=== PATIENT | female | born 1955 | race Caucasian/White ===

== ENCOUNTER → 2016-08-19 | Outpatient (CLI) | payer OTHER ==
--- NOTE | 2016-08-19 16:46 | REP ---
Clinical: Emphysema with nodules for follow up. Comparison: 12/15/2015. Findings: Advanced diffuse bilateral emphysematous changes are appreciated with a large scattered bullae predominate in the right upper lung zone. Areas of linear and nodular scarring as well as small nodular density in the right upper lobe (image 36), and left lower lobe (image 74, 93) remain stable. No new acute consolidation nodule or mass lesion otherwise identified. No pleural effusion/reaction or pneumothorax. No obvious adenopathy. Surrounding musculoskeletal structures are intact. Mediastinum demonstrates stable atherosclerotic changes without cardiomegaly or pericardial effusion. Limited evaluation of the upper abdomen demonstrates stable 4.4 cm left renal cyst. Impression: 1. Advanced emphysematous changes with scattered nodular densities unchanged from prior examination. No new acute consolidation, nodule or mass lesion. 2. Stable 4.4 cm left renal cyst. Signed by Cheng Islas MD 08/19/2016 04:38 P
== END ==
LOC: M RAD 16:15
PROVIDERS: ATTEND Internal Medicine Pulmonary Disease
DX: J43.1 Panlobular emphysema (principal); N28.1 Cyst of kidney, acquired

== ENCOUNTER → 2016-11-21 | Outpatient (REF) | payer OTHER ==
[2016-11-21 16:45] LABS: MEAN CORPUSCULAR HEMOGLOBIN 32.1 pg (27.0-33.0); MEAN CORPUSCULAR VOLUME 94.3 fl (80.0-96.0); RED CELL DISTRIBUTION WIDTH 13.1 % (11.5-14.5); WHITE BLOOD COUNT 7.2 K/mm3 (4.0-10.0)
[2016-11-21 17:35] LABS: ALBUMIN/GLOBULIN RATIO 1.18 (1.00-1.93); ALKALINE PHOSPHATASE 80 U/L (45-117); ALT/SGPT 28 U/L (12-78); ANION GAP 7 MEQ/L (8-16); AST/SGOT 19 U/L (15-37); BILIRUBIN,TOTAL 0.3 MG/DL (0.2-1.0); BLOOD UREA NITROGEN 10 MG/DL (7-18); CALCIUM LEVEL 8.9 MG/DL (8.8-10.2); CARBON DIOXIDE LEVEL 31 MEQ/L (21-32); CHLORIDE LEVEL 99 MEQ/L (98-107); CHOLESTEROL LEVEL 182 MG/DL (<200); CREATININE FOR GFR 0.74 MG/DL (0.55-1.02); GLOMERULAR FILTRATION RATE > 60.0 (>45); GLUCOSE, FASTING 82 MG/DL (80-110); SODIUM LEVEL 137 MEQ/L (136-145); TOTAL PROTEIN 7.4 GM/DL (6.4-8.2); TRIGLYCERIDES LEVEL 109 MG/DL (<150)
== END ==
LOC: M SFHCCLAY 11:20
PROVIDERS: ATTEND Nurse Practitioner Family
DX: I10 Essential (primary) hypertension (principal); Z13.6 Encounter for screening for cardiovascular disorders; Z13.21 Encounter for screening for nutritional disorder

== ENCOUNTER → 2017-01-23 | Outpatient (CLI) | payer OTHER ==
--- NOTE | 2017-01-23 13:21 | REP ---
Left wrist series: Four views. History: Left wrist pain. Findings: There is mild diffuse osteopenia. Wrist bones, joints, and soft tissues are otherwise unremarkable. Impression: No acute bony abnormality. Mild diffuse osteopenia.
== END ==
LOC: M CLY 11:36
PROVIDERS: ATTEND Nurse Practitioner Family
DX: M85.831 Other specified disorders of bone density and structure, right forearm (principal)

== ENCOUNTER 2017-07-08 13:17 | Inpatient (IN) | payer SELFPAY, OTHER ==
[2017-07-08 14:05] LABS: BASO % 0.2 % (0.0-1.0); EOS # 0.1 10^3/uL (0.0-0.50); EOS % 0.8 % (0.0-3.0); HEMATOCRIT 40.5 % (36.0-47.0); HEMOGLOBIN 14.5 g/dl (12.0-16.0); IMMATURE GRANULOCYTE % 0.2 % (0-0); LYMPH # 0.9 10^3/uL (1.5-4.5); LYMPH % 8.8 % (24.0-44.0); MEAN CORPUSCULAR HEMOGLOBIN 30.9 pg (27.0-33.0); MEAN CORPUSCULAR HGB CONC 35.8 g/dl (32.0-36.5); MEAN CORPUSCULAR VOLUME 86.4 fl (80.0-96.0); MONO % 9.9 % (0.0-5.0); NEUTROPHILS # 8.4 10^3/uL (1.8-7.7); NEUTROPHILS % 80.1 % (36.0-66.0); PLATELET COUNT, AUTOMATED 397 10^3/uL (150-450); RED BLOOD COUNT 4.69 10^6/uL (4.00-5.40); RED CELL DISTRIBUTION WIDTH 12.3 % (11.5-14.5); WHITE BLOOD COUNT 10.4 10^3/uL (4.0-10.0)
[2017-07-08 14:28] LABS: ALBUMIN 3.6 GM/DL (3.2-5.2); ALKALINE PHOSPHATASE 74 U/L (45-117); ALT/SGPT 25 U/L (12-78); ANION GAP 9 MEQ/L (8-16); AST/SGOT 21 U/L (7-37); BILIRUBIN,DIRECT 0.2 MG/DL (0.0-0.2); BILIRUBIN,TOTAL 0.7 MG/DL (0.2-1.0); BLOOD UREA NITROGEN 18 MG/DL (7-18); CALCIUM LEVEL 8.9 MG/DL (8.8-10.2); CARBON DIOXIDE LEVEL 29 MEQ/L (21-32); CHLORIDE LEVEL 96 MEQ/L (98-107); CPK CREATINE PHOSPHOKINASE 86 U/L (26-192); CREATININE FOR GFR 0.85 MG/DL (0.55-1.30); GLOMERULAR FILTRATION RATE > 60.0 (>45); GLUCOSE, FASTING 102 MG/DL (70-100); MB/CK RELATIVE INDEX 1.16 (< OR =4); NT-PRO BNP 111 PG/ML (<125); POTASSIUM SERUM 2.9 MEQ/L (3.5-5.1); SODIUM LEVEL 134 MEQ/L (136-145); TOTAL PROTEIN 7.6 GM/DL (6.4-8.2); TROPONIN I < 0.02 NG/ML (< 0.10)
[2017-07-08 14:34] LABS: LACTIC ACID SEPSIS PROTOCOL 1.3 MMOL/L (0.4-2.0)
[2017-07-08 14:36] LABS: INFLUENZA A AMPLIFICATION NEGATIVE (NEGATIVE); INFLUENZA B AMPLIFICATION NEGATIVE (NEGATIVE)
[2017-07-08] MEDS: methylPREDNISolone INJ 125 MG/2 ML VIAL (J2930) IV (14:55)
[2017-07-08] MEDS: POTASSIUM CHLORIDE 10 MEQ SR TABLET PO (14:55)
[2017-07-08] MEDS: IPRATROPIUM 0.5MG/ALBUTEROL 2.5MG INH SOL UD 3ML (DUONEB)(J7620) NEB ×2 (14:55→20:00)
[2017-07-08] MEDS ORDERED: ISOVUE-370 76% 100ML VIAL (Q9967) As Ordered (15:46)
[2017-07-08] MEDS: KETOROLAC 30 MG/ML VIAL (J1885) IV (16:12)
[2017-07-08 16:55] LABS: APPEARANCE, URINE HAZY (CLEAR); BACTERIA, URINE AUTO NEGATIVE (NEGATIVE); BILIRUBIN, URINE AUTO NEGATIVE (NEGATIVE); BLOOD, URINE BLOOD NEGATIVE (NEGATIVE); COLOR, URINE YELLOW (YELLOW); GLUCOSE, URINE (UA) AUTO NEGATIVE (NEGATIVE); KETONE, URINE AUTO NEGATIVE (NEGATIVE); LEUKOCYTE ESTERASE, URINE AUTO 2+ (NEGATIVE); NITRITE, URINE AUTO NEGATIVE (NEGATIVE); PROTEIN, URINE AUTO NEGATIVE (NEGATIVE); RBC, URINE AUTO 1 /HPF (0-3); SPECIFIC GRAVITY URINE AUTO 1.058 (1.002-1.035); SQUAMOUS EPITHELIAL CELL UR AU 9 /HPF (0-6); UROBILINOGEN, URINE AUTO 0.2 mg/dL (0.0-2.0); WBC, URINE AUTO 5 /HPF (0-3)
[2017-07-08] MEDS ORDERED: ONDANSETRON 4MG/2ML VIAL (J2405) IV (17:00)
[2017-07-08] MEDS ORDERED: IPRATROPIUM 0.5MG/ALBUTEROL 2.5MG INH SOL UD 3ML (DUONEB)(J7620) NEB (17:30)
[2017-07-08] MEDS: ALBUTEROL SULFATE 2.5 MG/0.5 ML INH NEB SOLN NEB (17:31)
[2017-07-08] MEDS: DOXYCYCLINE HYCLATE 100 MG TAB PO (21:45)
[2017-07-08] MEDS: FAMOTIDINE 20 MG TAB PO (21:45)
[2017-07-08] MEDS: HEPARIN SOD (PORCINE) 5000 UNITS/ML VIAL SC (21:45)
[2017-07-08] MEDS: ACETAMINOPHEN TAB 650MG DOSE (2X325MG) PO (21:46)
[2017-07-08] MEDS: methylPREDNISolone INJ 40 MG/1 ML VIAL (J2920) IV (23:08)
[2017-07-09] MEDS: IPRATROPIUM 0.5MG/ALBUTEROL 2.5MG INH SOL UD 3ML (DUONEB)(J7620) NEB ×4 (01:18→20:31)
[2017-07-09] MEDS: POTASSIUM CHLORIDE 10 MEQ SR TABLET PO ×2 (01:42→06:20)
[2017-07-09] MEDS: methylPREDNISolone INJ 40 MG/1 ML VIAL (J2920) IV ×3 (06:21→21:57)
[2017-07-09] MEDS: HEPARIN SOD (PORCINE) 5000 UNITS/ML VIAL SC ×3 (06:21→21:57)
[2017-07-09] MEDS: ACETAMINOPHEN TAB 650MG DOSE (2X325MG) PO ×2 (06:34→11:50)
[2017-07-09 06:57] LABS: HEMATOCRIT 37.5 % (36.0-47.0); MEAN CORPUSCULAR HEMOGLOBIN 30.7 pg (27.0-33.0); MEAN CORPUSCULAR HGB CONC 34.7 g/dl (32.0-36.5); MEAN CORPUSCULAR VOLUME 88.4 fl (80.0-96.0); PLATELET COUNT, AUTOMATED 401 10^3/uL (150-450); RED BLOOD COUNT 4.24 10^6/uL (4.00-5.40); RED CELL DISTRIBUTION WIDTH 12.6 % (11.5-14.5); WHITE BLOOD COUNT 5.7 10^3/uL (4.0-10.0)
[2017-07-09 07:14] LABS: ANION GAP 9 MEQ/L (8-16); BLOOD UREA NITROGEN 25 MG/DL (7-18); CALCIUM LEVEL 9.2 MG/DL (8.8-10.2); CARBON DIOXIDE LEVEL 27 MEQ/L (21-32); CHLORIDE LEVEL 98 MEQ/L (98-107); CREATININE FOR GFR 0.91 MG/DL (0.55-1.30); GLOMERULAR FILTRATION RATE > 60.0 (>45); GLUCOSE, FASTING 116 MG/DL (70-100); MAGNESIUM LEVEL 2.3 MG/DL (1.8-2.4); POTASSIUM SERUM 4.6 MEQ/L (3.5-5.1); SODIUM LEVEL 134 MEQ/L (136-145)
[2017-07-09] MEDS ORDERED: CHLORTHALIDONE 12.5MG PER 1/2 TABLET PO (09:00)
[2017-07-09] MEDS: FAMOTIDINE 20 MG TAB PO ×2 (10:22→20:07)
[2017-07-09] MEDS: DOXYCYCLINE HYCLATE 100 MG TAB PO ×2 (10:22→20:07)
[2017-07-09] MEDS: ACETAMINOPHEN 500 MG TAB PO (16:35)
[2017-07-09] MEDS: BENZONATATE 100 MG CAP PO (20:07)
[2017-07-10] MEDS: ACETAMINOPHEN 500 MG TAB PO (00:15)
[2017-07-10] MEDS: IPRATROPIUM 0.5MG/ALBUTEROL 2.5MG INH SOL UD 3ML (DUONEB)(J7620) NEB ×4 (02:00→20:37)
[2017-07-10] MEDS: HEPARIN SOD (PORCINE) 5000 UNITS/ML VIAL SC ×3 (06:10→21:55)
[2017-07-10] MEDS: methylPREDNISolone INJ 40 MG/1 ML VIAL (J2920) IV (06:10)
[2017-07-10 06:51] LABS: HEMATOCRIT 36.9 % (36.0-47.0); HEMOGLOBIN 12.6 g/dl (12.0-16.0); MEAN CORPUSCULAR HEMOGLOBIN 31.1 pg (27.0-33.0); MEAN CORPUSCULAR HGB CONC 34.1 g/dl (32.0-36.5); MEAN CORPUSCULAR VOLUME 91.1 fl (80.0-96.0); PLATELET COUNT, AUTOMATED 450 10^3/uL (150-450); RED BLOOD COUNT 4.05 10^6/uL (4.00-5.40); WHITE BLOOD COUNT 12.3 10^3/uL (4.0-10.0)
[2017-07-10 07:18] LABS: ANION GAP 8 MEQ/L (8-16); BLOOD UREA NITROGEN 20 MG/DL (7-18); CALCIUM LEVEL 8.9 MG/DL (8.8-10.2); CARBON DIOXIDE LEVEL 26 MEQ/L (21-32); CHLORIDE LEVEL 102 MEQ/L (98-107); CREATININE FOR GFR 0.78 MG/DL (0.55-1.30); GLOMERULAR FILTRATION RATE > 60.0 (>45); GLUCOSE, FASTING 109 MG/DL (70-100); MAGNESIUM LEVEL 2.1 MG/DL (1.8-2.4); POTASSIUM SERUM 4.3 MEQ/L (3.5-5.1); SODIUM LEVEL 136 MEQ/L (136-145)
[2017-07-10] MEDS: FAMOTIDINE 20 MG TAB PO ×2 (08:31→21:54)
[2017-07-10] MEDS: DOXYCYCLINE HYCLATE 100 MG TAB PO ×2 (08:31→21:54)
[2017-07-10] MEDS: IBUPROFEN 400 MG TAB PO ×2 (08:31→15:05)
[2017-07-10] MEDS: CYCLOBENZAPRINE 5MG TABLET PO ×2 (08:59→15:04)
[2017-07-10] MEDS: KETOROLAC 30 MG/ML VIAL (J1885) IV (21:54)
[2017-07-11] MEDS: IPRATROPIUM 0.5MG/ALBUTEROL 2.5MG INH SOL UD 3ML (DUONEB)(J7620) NEB ×5 (00:52→20:31)
[2017-07-11] MEDS: traMADol 50 MG TAB PO ×3 (04:27→19:50)
[2017-07-11] MEDS: HEPARIN SOD (PORCINE) 5000 UNITS/ML VIAL SC ×3 (05:50→22:55)
[2017-07-11] MEDS: predniSONE 20 MG TAB PO (09:24)
[2017-07-11] MEDS: FAMOTIDINE 20 MG TAB PO ×2 (09:24→19:52)
[2017-07-11] MEDS: DOXYCYCLINE HYCLATE 100 MG TAB PO ×2 (09:24→19:52)
[2017-07-11] MEDS: FAMCICLOVIR 500 MG TAB PO ×3 (09:24→19:52)
[2017-07-11] MEDS: CYCLOBENZAPRINE 5MG TABLET PO (19:50)
[2017-07-11] MEDS: ACETAMINOPHEN 500 MG TAB PO (19:51)
[2017-07-12] MEDS: IPRATROPIUM 0.5MG/ALBUTEROL 2.5MG INH SOL UD 3ML (DUONEB)(J7620) NEB ×4 (01:39→20:16)
[2017-07-12] MEDS: HEPARIN SOD (PORCINE) 5000 UNITS/ML VIAL SC ×3 (06:12→20:37)
[2017-07-12 06:37] LABS: EOS # 0.1 10^3/uL (0.0-0.50); HEMOGLOBIN 11.8 g/dl (12.0-16.0); IMMATURE GRANULOCYTE % 0.8 % (0-3.0); LYMPH # 2.2 10^3/uL (1.5-4.5); LYMPH % 25.9 % (24.0-44.0); MEAN CORPUSCULAR HEMOGLOBIN 30.9 pg (27.0-33.0); MEAN CORPUSCULAR HGB CONC 33.7 g/dl (32.0-36.5); MEAN CORPUSCULAR VOLUME 91.6 fl (80.0-96.0); MONO # 1.1 10^3/uL (0.0-0.8); MONO % 12.9 % (0.0-5.0); NEUTROPHILS # 4.9 10^3/uL (1.8-7.7); NEUTROPHILS % 59.4 % (36.0-66.0); PLATELET COUNT, AUTOMATED 439 10^3/uL (150-450); RED BLOOD COUNT 3.82 10^6/uL (4.00-5.40); RED CELL DISTRIBUTION WIDTH 13.4 % (11.5-14.5); WHITE BLOOD COUNT 8.3 10^3/uL (4.0-10.0)
[2017-07-12 06:56] LABS: ALBUMIN 2.9 GM/DL (3.2-5.2); ALBUMIN/GLOBULIN RATIO 0.97 (1.00-1.93); ALKALINE PHOSPHATASE 54 U/L (45-117); ALT/SGPT 27 U/L (12-78); ANION GAP 6 MEQ/L (8-16); AST/SGOT 20 U/L (7-37); BILIRUBIN,TOTAL 0.4 MG/DL (0.2-1.0); BLOOD UREA NITROGEN 18 MG/DL (7-18); CALCIUM LEVEL 8.5 MG/DL (8.8-10.2); CARBON DIOXIDE LEVEL 31 MEQ/L (21-32); CHLORIDE LEVEL 102 MEQ/L (98-107); CREATININE FOR GFR 0.76 MG/DL (0.55-1.30); GLOMERULAR FILTRATION RATE > 60.0 (>45); GLUCOSE, FASTING 79 MG/DL (70-100); POTASSIUM SERUM 4.5 MEQ/L (3.5-5.1); SODIUM LEVEL 139 MEQ/L (136-145); TOTAL PROTEIN 5.9 GM/DL (6.4-8.2)
[2017-07-12] MEDS: FAMCICLOVIR 500 MG TAB PO ×3 (08:10→20:36)
[2017-07-12] MEDS: predniSONE 20 MG TAB PO (08:10)
[2017-07-12] MEDS: FAMOTIDINE 20 MG TAB PO ×2 (08:10→20:36)
[2017-07-12] MEDS: DOXYCYCLINE HYCLATE 100 MG TAB PO ×2 (08:10→20:36)
[2017-07-12] MEDS: traMADol 50 MG TAB PO ×2 (08:10→17:11)
[2017-07-12] MEDS: IBUPROFEN 400 MG TAB PO ×2 (11:35→20:36)
[2017-07-12] MEDS: CYCLOBENZAPRINE 5MG TABLET PO ×2 (13:20→20:36)
[2017-07-12] MEDS: DICLOFENAC EPOLAMINE 1.3 % PATCH TOP (17:11)
[2017-07-13] MEDS: IPRATROPIUM 0.5MG/ALBUTEROL 2.5MG INH SOL UD 3ML (DUONEB)(J7620) NEB ×4 (00:56→20:58)
[2017-07-13] MEDS: DICLOFENAC EPOLAMINE 1.3 % PATCH TOP ×2 (05:32→18:18)
[2017-07-13] MEDS: HEPARIN SOD (PORCINE) 5000 UNITS/ML VIAL SC ×3 (05:33→20:40)
[2017-07-13 06:27] LABS: BASO % 0.1 % (0.0-1.0); EOS # 0.1 10^3/uL (0.0-0.50); HEMOGLOBIN 12.1 g/dl (12.0-16.0); IMMATURE GRANULOCYTE % 1.2 % (0-3.0); LYMPH # 2.8 10^3/uL (1.5-4.5); LYMPH % 26.5 % (24.0-44.0); MEAN CORPUSCULAR HEMOGLOBIN 30.9 pg (27.0-33.0); MEAN CORPUSCULAR HGB CONC 33.6 g/dl (32.0-36.5); MEAN CORPUSCULAR VOLUME 91.8 fl (80.0-96.0); MONO # 1.2 10^3/uL (0.0-0.8); MONO % 11.6 % (0.0-5.0); NEUTROPHILS # 6.2 10^3/uL (1.8-7.7); NEUTROPHILS % 59.6 % (36.0-66.0); PLATELET COUNT, AUTOMATED 510 10^3/uL (150-450); RED BLOOD COUNT 3.92 10^6/uL (4.00-5.40); RED CELL DISTRIBUTION WIDTH 13.5 % (11.5-14.5); WHITE BLOOD COUNT 10.4 10^3/uL (4.0-10.0)
[2017-07-13 06:58] LABS: ALBUMIN/GLOBULIN RATIO 0.91 (1.00-1.93); ALKALINE PHOSPHATASE 59 U/L (45-117); ALT/SGPT 30 U/L (12-78); ANION GAP 6 MEQ/L (8-16); AST/SGOT 24 U/L (7-37); BILIRUBIN,TOTAL 0.4 MG/DL (0.2-1.0); BLOOD UREA NITROGEN 15 MG/DL (7-18); CALCIUM LEVEL 8.5 MG/DL (8.8-10.2); CARBON DIOXIDE LEVEL 30 MEQ/L (21-32); CHLORIDE LEVEL 103 MEQ/L (98-107); GLOMERULAR FILTRATION RATE > 60.0 (>45); GLUCOSE, FASTING 72 MG/DL (70-100); POTASSIUM SERUM 4.4 MEQ/L (3.5-5.1); SODIUM LEVEL 139 MEQ/L (136-145); TOTAL PROTEIN 6.3 GM/DL (6.4-8.2)
[2017-07-13] MEDS: predniSONE 20 MG TAB PO (09:08)
[2017-07-13] MEDS: DOXYCYCLINE HYCLATE 100 MG TAB PO ×2 (09:08→20:40)
[2017-07-13] MEDS: traMADol 50 MG TAB PO ×2 (09:08→15:45)
[2017-07-13] MEDS: FAMOTIDINE 20 MG TAB PO ×2 (09:08→20:40)
[2017-07-13] MEDS: BENZONATATE 100 MG CAP PO ×2 (09:36→20:41)
[2017-07-13] MEDS: IBUPROFEN 400 MG TAB PO ×2 (14:43→20:40)
[2017-07-14] MEDS: IPRATROPIUM 0.5MG/ALBUTEROL 2.5MG INH SOL UD 3ML (DUONEB)(J7620) NEB ×2 (01:18→08:59)
[2017-07-14] MEDS: TUSSICAPS ER 10/8MG CAPSULE PO ×2 (01:36→11:36)
[2017-07-14 06:22] LABS: BASO % 0.1 % (0.0-1.0); EOS # 0.2 10^3/uL (0.0-0.50); EOS % 1.2 % (0.0-3.0); HEMATOCRIT 32.8 % (36.0-47.0); HEMOGLOBIN 11.1 g/dl (12.0-16.0); IMMATURE GRANULOCYTE % 1.3 % (0-3.0); LYMPH # 2.8 10^3/uL (1.5-4.5); LYMPH % 23.6 % (24.0-44.0); MEAN CORPUSCULAR HEMOGLOBIN 31.6 pg (27.0-33.0); MEAN CORPUSCULAR HGB CONC 33.8 g/dl (32.0-36.5); MEAN CORPUSCULAR VOLUME 93.4 fl (80.0-96.0); MONO # 1.2 10^3/uL (0.0-0.8); MONO % 10.2 % (0.0-5.0); NEUTROPHILS # 7.6 10^3/uL (1.8-7.7); NEUTROPHILS % 63.6 % (36.0-66.0); PLATELET COUNT, AUTOMATED 456 10^3/uL (150-450); RED BLOOD COUNT 3.51 10^6/uL (4.00-5.40); RED CELL DISTRIBUTION WIDTH 13.7 % (11.5-14.5)
[2017-07-14] MEDS: DICLOFENAC EPOLAMINE 1.3 % PATCH TOP (06:37)
[2017-07-14] MEDS: IBUPROFEN 400 MG TAB PO (06:37)
[2017-07-14] MEDS: BENZONATATE 100 MG CAP PO (06:38)
[2017-07-14] MEDS: HEPARIN SOD (PORCINE) 5000 UNITS/ML VIAL SC (06:38)
[2017-07-14 06:41] LABS: ALBUMIN 2.8 GM/DL (3.2-5.2); ALBUMIN/GLOBULIN RATIO 0.97 (1.00-1.93); ALKALINE PHOSPHATASE 59 U/L (45-117); ALT/SGPT 48 U/L (12-78); ANION GAP 7 MEQ/L (8-16); AST/SGOT 33 U/L (7-37); BILIRUBIN,TOTAL 0.3 MG/DL (0.2-1.0); BLOOD UREA NITROGEN 17 MG/DL (7-18); CALCIUM LEVEL 8.4 MG/DL (8.8-10.2); CARBON DIOXIDE LEVEL 29 MEQ/L (21-32); CHLORIDE LEVEL 103 MEQ/L (98-107); CREATININE FOR GFR 0.73 MG/DL (0.55-1.30); GLOMERULAR FILTRATION RATE > 60.0 (>45); GLUCOSE, FASTING 70 MG/DL (70-100); POTASSIUM SERUM 4.4 MEQ/L (3.5-5.1); SODIUM LEVEL 139 MEQ/L (136-145); TOTAL PROTEIN 5.7 GM/DL (6.4-8.2)
[2017-07-14] MEDS: FAMOTIDINE 20 MG TAB PO (09:02)
[2017-07-14] MEDS: predniSONE 10 MG TAB PO (09:02)
[2017-07-14] MEDS: DOXYCYCLINE HYCLATE 100 MG TAB PO (09:02)
== END 2017-07-14 12:25 | disposition home or self-care (01) | DRG 140 ==
LOC: M MS5PR 07-11 12:27 → M ED 13:17 → M ED INP 17:00 → M MS5PR 20:04
DX: J44.1 Chronic obstructive pulmonary disease with (acute) exacerbation (principal); J96.11 Chronic respiratory failure with hypoxia; I10 Essential (primary) hypertension; E87.6 Hypokalemia; L23.89 Allergic contact dermatitis due to other agents; Z79.899 Other long term (current) drug therapy; Z88.2 Allergy status to sulfonamides; Z88.0 Allergy status to penicillin; Z88.8 Allergy status to other drugs, medicaments and biological substances; Z87.891 Personal history of nicotine dependence

== ENCOUNTER → 2017-08-11 | Outpatient (CLI) | payer OTHER | LOC: M RAD 15:18 | DX: J43.1 Panlobular emphysema (principal); S22.080D Wedge compression fracture of T11-T12 vertebra, subsequent encounter for fracture with routine healing; X58.XXXD Exposure to other specified factors, subsequent encounter | CPT/HCPCS: 71250 ==

== ENCOUNTER → 2017-11-21 | Outpatient (REF) | payer OTHER ==
[2017-11-21 18:22] LABS: ALBUMIN 3.8 GM/DL (3.2-5.2); ALBUMIN/GLOBULIN RATIO 1.09 (1.00-1.93); ALKALINE PHOSPHATASE 83 U/L (45-117); ALT/SGPT 28 U/L (12-78); ANION GAP 7 MEQ/L (8-16); AST/SGOT 20 U/L (7-37); BILIRUBIN,TOTAL 0.2 MG/DL (0.2-1.0); BLOOD UREA NITROGEN 12 MG/DL (7-18); CALCIUM LEVEL 8.4 MG/DL (8.8-10.2); CARBON DIOXIDE LEVEL 31 MEQ/L (21-32); CHLORIDE LEVEL 105 MEQ/L (98-107); CHOLESTEROL LEVEL 182 MG/DL (<200); CHOLESTEROL RISK RATIO 2.426 (<5); CREATININE FOR GFR 0.78 MG/DL (0.55-1.30); FREE T4 1.11 NG/DL (0.76-1.46); GLOMERULAR FILTRATION RATE > 60.0 (>45); GLUCOSE, FASTING 94 MG/DL (70-100); HDL CHOLESTEROL 75 MG/DL (>40); NON-HDL-C 107 MG/DL; POTASSIUM SERUM 4.7 MEQ/L (3.5-5.1); SODIUM LEVEL 143 MEQ/L (136-145); THYROID STIMULATING HORMONE 0.791 uIU/ML (0.358-3.740); TOTAL PROTEIN 7.3 GM/DL (6.4-8.2); TRIGLYCERIDES LEVEL 160 MG/DL (<150)
[2017-11-21 19:06] LABS: TOTAL 25(OH) VITAMIN D 22.1 NG/ML (30.0-100.0)
[2017-11-21 19:17] LABS: HEMATOCRIT 41.1 % (36.0-47.0); HEMOGLOBIN 13.2 g/dl (12.0-15.5); MEAN CORPUSCULAR HEMOGLOBIN 30.8 pg (27.0-33.0); MEAN CORPUSCULAR HGB CONC 32.1 g/dl (32.0-36.5); MEAN CORPUSCULAR VOLUME 95.8 fl (80.0-96.0); PLATELET COUNT, AUTOMATED 341 10^3/uL (150-450); RED BLOOD COUNT 4.29 10^6/uL (4.00-5.40); WHITE BLOOD COUNT 8.4 10^3/uL (4.0-10.0)
== END ==
LOC: M SFHCCLAY 11:17
DX: Z13.21 Encounter for screening for nutritional disorder (principal); I10 Essential (primary) hypertension; K21.9 Gastro-esophageal reflux disease without esophagitis
CPT/HCPCS: 84443

== ENCOUNTER → 2018-01-07 | Outpatient (REF) | payer OTHER | LOC: M SFHCLERA 09:13 | DX: D18.01 Hemangioma of skin and subcutaneous tissue (principal) | CPT/HCPCS: 88305 ==

== ENCOUNTER → 2018-06-09 | Outpatient (REF) | payer MEDICARE, OTHER ==
[~2018-06-09] MED LIST: ARCA75CA INH; ARNU1INH3 INH; BENZ-18 PO; CHLO125TA; CHLO25TA PO; DOXY100C37 PO; INCR1INH INH; PRED10TA2 PO; TRAM50TA2 PO; TUSS1CAP5 PO; TYLE500T78 PO; VENTAER INH
[2018-06-09 18:22] LABS: BASO % 0.4 % (0.0-1.0); EOS # 0.2 10^3/uL (0.0-0.50); EOS % 2.5 % (0.0-3.0); HEMATOCRIT 40.9 % (36.0-47.0); HEMOGLOBIN 13.4 g/dl (12.0-15.5); LYMPH % 25.8 % (24.0-44.0); MEAN CORPUSCULAR HEMOGLOBIN 30.9 pg (27.0-33.0); MEAN CORPUSCULAR HGB CONC 32.8 g/dl (32.0-36.5); MEAN CORPUSCULAR VOLUME 94.2 fl (80.0-96.0); MONO # 0.6 10^3/uL (0.0-0.8); MONO % 7.7 % (0.0-5.0); NEUTROPHILS # 4.9 10^3/uL (1.8-7.7); NEUTROPHILS % 63.3 % (36.0-66.0); PLATELET COUNT, AUTOMATED 381 10^3/uL (150-450); RED BLOOD COUNT 4.34 10^6/uL (4.00-5.40); WHITE BLOOD COUNT 7.8 10^3/uL (4.0-10.0)
[2018-06-09 18:48] LABS: ALBUMIN 3.9 GM/DL (3.2-5.2); ALT/SGPT 22 U/L (12-78); BILIRUBIN,TOTAL 0.2 MG/DL (0.2-1.0); BLOOD UREA NITROGEN 14 MG/DL (7-18); CALCIUM LEVEL 8.8 MG/DL (8.8-10.2); CARBON DIOXIDE LEVEL 29 MEQ/L (21-32); CHLORIDE LEVEL 105 MEQ/L (98-107); CHOLESTEROL LEVEL 217 MG/DL (<200); CHOLESTEROL RISK RATIO 2.893 (<5); CREATININE FOR GFR 0.78 MG/DL (0.55-1.30); FREE T4 1.07 NG/DL (0.76-1.46); GLOMERULAR FILTRATION RATE > 60.0 (>45); GLUCOSE, FASTING 100 MG/DL (70-100); HDL CHOLESTEROL 75 MG/DL (>40); LDL CHOLESTEROL 108 MG/DL (<100); NON-HDL-C 142 MG/DL; POTASSIUM SERUM 4.8 MEQ/L (3.5-5.1); SODIUM LEVEL 142 MEQ/L (136-145); TOTAL PROTEIN 7.5 GM/DL (6.4-8.2); TRIGLYCERIDES LEVEL 168 MG/DL (<150)
== END ==
LOC: M SFHCCLAY 13:46
PROVIDERS: ATTEND Nurse Practitioner Family
DX: I10 Essential (primary) hypertension (principal); K21.9 Gastro-esophageal reflux disease without esophagitis; J44.9 Chronic obstructive pulmonary disease, unspecified
CPT/HCPCS: 80053; 80061; 84439; 84443; 85025; G0463

== ENCOUNTER → 2018-08-10 | Outpatient (CLI) | payer OTHER ==
--- NOTE | 2018-08-11 08:17 | REP ---
Clinical: History jimenez lobular emphysema. Technique: Axial noncontrast images from the thoracic inlet to the upper abdomen with coronal and sagittal re-formations. Comparison: 08/11/2017. Findings: A new area of irregular mass-like consolidation is identified in the right upper lung zone/suprahilar region at the base of the large apical bulla which represents a new finding as compared to 2018. Associated new mediastinal adenopathy is identified and findings are compatible with malignancy/neoplasm unless proven otherwise. Advanced COPD/emphysematous changes noted throughout the bilateral lung kirby. Nodular noncalcified left lower lobe lesions remains stable. Atherosclerotic changes to the thoracic aorta and coronary arteries noted without aortic aneurysm or cardiomegaly. Small pericardial effusion appears chronic and unchanged. Impression: New irregular area of mass / consolidation in the right upper lung zone/suprahilar region at the base of the large apical bulla along with adenopathy is consistent with malignancy unless proven otherwise. Electronically Signed by Cheng Islas MD 08/11/2018 08:08 A
== END ==
LOC: M RAD 17:40
PROVIDERS: ATTEND Internal Medicine Pulmonary Disease
DX: J43.1 Panlobular emphysema (principal); R91.8 Other nonspecific abnormal finding of lung field; I70.0 Atherosclerosis of aorta

== ENCOUNTER → 2018-08-14 | Outpatient (REF) | payer OTHER | LOC: M LAB REF 17:10 | PROVIDERS: ATTEND Internal Medicine Pulmonary Disease | DX: J43.1 Panlobular emphysema (principal) ==

== ENCOUNTER → 2018-09-14 | Outpatient (CLI) | payer OTHER ==
--- NOTE | 2018-09-14 16:23 | REP ---
CT CHEST WITHOUT CONTRAST: HISTORY: Abnormal lung field finding. Comparison is made with multiple prior chest CTs, the most recent of which is from August 10, 2018 and the most remote of which is from August 2015. CT FINDINGS: There are severe emphysematous changes with a bullous emphysema occupying much of both upper lobes. There is a very large bullous in the right upper lobe as on multiple prior studies. This dilated air cyst measures up to 12-13 cm in greatest diameter. Along the inferior aspect of this there is a spiculated V-shaped infiltrating area of soft tissue density which has been gradually progressing. There are cavitary changes within this soft tissue density. On axial images this infiltrative mass like spiculated opacity measures up to 5.4 x 4.3 cm. There is mass effect probably occlusion of subsegmental bronchial airways in the right infrahilar region. There is a linear medially distributed calcification along the edge of the bullous along the mediastinal contour and posterior pleural contour at the apex. There is mild mediastinal lymphadenopathy again noted unchanged from the comparison study of August 10, 2018. Largest precarinal lymph node measures 14 x 22 mm in transverse dimension. There are several pretracheal lymph nodes which are smaller. There is a stable subcentimeter nodule in the left lower lobe on page 75 of 117 in series 201 of today's study. There is another stable nodule in the left lateral pleural angle 8 mm in diameter. This is visible on page 94 of the same series. Extensive emphysematous changes are noted in the lower lobes as well. There is no pleural or pericardial effusion. No adrenal lesion is seen. Post cholecystectomy clips are noted right upper quadrant. There is a cyst in the left kidney which measures 4.5 cm. IMPRESSION: Suspicious right upper lobe perihilar infiltrative spiculated lesion with cavitary changes along the inferior margin of a very large right apical bullous. Advanced COPD and emphysematous changes. Mediastinal adenopathy. Electronically Signed by Anil Costello MD 09/14/2018 05:00 P
== END ==
LOC: M RAD 15:01
PROVIDERS: ATTEND Internal Medicine Pulmonary Disease
DX: R91.8 Other nonspecific abnormal finding of lung field (principal)

== ENCOUNTER 2018-10-14 07:26 | Day surgery (SDC) | payer OTHER ==
[~2018-10-14] VITALS: Ht 157.5 cm; Wt 52.6 kg
[~2018-10-14 07:26] MED LIST changes: +ACET-897 PO; +ANOR1AER INH; +RANI150T14 PO
[2018-10-14] MEDS ORDERED: LR 1,000 ML IV SCH ×2 (07:45→10:30)
[2018-10-14] MEDS ORDERED: LIDOCAINE 1% MDV 20ML VIAL SQ PRN (07:45)
[2018-10-14] MEDS ORDERED: SUGAMMADEX SODIUM 500 MG/5 ML VIAL (BRIDION) As Ordered ONE (07:58)
[2018-10-14] MEDS ORDERED: ROCURONIUM BROMIDE 50 MG/5 ML VIAL As Ordered ONE (07:58)
[2018-10-14] MEDS ORDERED: LIDOCAINE 2% INJ 100 MG/5 ML SDV (FOR ANES.) As Ordered ONE (07:58)
[2018-10-14] MEDS ORDERED: PROPOFOL 200 MG/20 ML VIAL As Ordered ONE ×2 (07:58→08:30)
[2018-10-14] MEDS ORDERED: ONDANSETRON 4MG/2ML VIAL (J2405) As Ordered ONE (08:00)
[2018-10-14] MEDS ORDERED: MIDAZOLAM INJ 2 MG/2 ML VIAL (J2250) As Ordered ONE (08:01)
[2018-10-14] MEDS ORDERED: fentaNYL 100 MCG/2 ML INJECTION (J3010) As Ordered ONE (08:01)
[2018-10-14] MEDS ORDERED: THROMBIN SOLN 20,000 UNITS KIT As Ordered ONE (08:37)
[2018-10-14] MEDS ORDERED: LIDOCAINE 1% SDV INJ 30 ML VIAL As Ordered ONE (08:38)
[2018-10-14] MEDS ORDERED: LIDOCAINE VISCOUS 2% SOLN 15ML UDC As Ordered ONE (08:38)
[2018-10-14] MEDS ORDERED: EPINEPHrine 1MG/10ML SYRINGE 1.5IN As Ordered ONE (08:38)
[2018-10-14] MEDS ORDERED: CETACAINE SPRAY 5GM As Ordered ONE (08:41)
[2018-10-14] MEDS ORDERED: PHENYLephrine HCL 500 MCG/5 ML (100MCG/ML) SYRINGE (J2370) As Ordered ONE (09:26)
--- NOTE | 2018-10-14 10:16 | REP ---
Portable chest, 09:58 a.m., single AP view, the the patient is upright: Comparisons are the chest CT performed earlier today and the portable plain film study dated 07/08/2017. There are numerous bulla throughout the lung kirby bilaterally. There is a new mass-like lesion in right suprahilar area as an interval change from 07/08/2017 but similar to the findings on the CT earlier today. There is no pneumothorax or hemothorax. Cardiac size is normal. The jing, mediastinum, skeletal structures are otherwise unremarkable. Impression: No pneumothorax or hemothorax. Right suprahilar mass like lesion as described. Numerous bulla throughout the lung kirby bilaterally. Electronically Signed by Jamei Toscano MD 10/14/2018 10:07 A
--- NOTE | 2018-10-14 10:28 | RO ---
DATE OF PROCEDURE: 10/14/2018 PREOPERATIVE DIAGNOSIS: Right upper lobe mass, abnormal chest CT. POSTOPERATIVE DIAGNOSIS: Right upper lobe mass, abnormal chest CT. FINDINGS: Smoker's airway. PROCEDURE: Bronchoscopy with transbronchial cytology brush and transbronchial forceps biopsies procedures. SURGEON: Dr. Casiano FOLDING MACHINE OPERATOR: No financial planning assistant. ANESTHESIA: General. ESTIMATED BLOOD LOSS: Less than 5 mL. SPECIMENS OBTAINED: 1. Right upper lobe transbronchial brush cytology. 2. Right upper lobe transbronchial biopsies sent for path. DESCRIPTION OF PROCEDURE: After informed consent was reviewed with the patient in the preoperative area, she was brought back to operating room (OR) #6. Anesthesia was performed, and the patient was intubated with an 8.5 endotracheal tube. The case was then handed over to me. Time-out was performed identifying two patient identifiers, correct site, correct procedure. Cetacaine spray was then used to anesthetize the airway along with a bronchoscope. Bronchoscope was advanced into the airway. The brandon was sharp. Right and left mainstem bronchi were normal. Right bronchus (RB) 1 had a slightly swollen mucosa but otherwise patent. RB 1-3 were patent without endobronchial lesions. The spur between the right upper lobe and the bronchus intermedius was normal. RB 4-10 were normal without endobronchial lesions. There is minimal changes consistent with prior history of smoking. Some banding was present. Left mainstem bronchus was normal. Left bronchus (LB) 1-10 was normal except for smoking changes. No endobronchial lesions. Bronchoscope was then placed into the apical segment of the right upper lobe. Cytology brushing was then performed under fluoroscopy. This correlated with a right upper lobe mass. On-site cytology suggested abnormal cells of this sampling. Transbronchial forceps biopsies were then obtained. There are minimal amounts of bleeding that stopped with compression of the airway through suctioning. After hemostasis was assured, the 1T190 bronchoscope was removed and the endobronchial ultrasound was inserted. I viewed the 4R pretracheal area and a picture was taken. There were no significantly enlarged lymph nodes. Superior vena cava (SVC) was patent. The subcarinal area was also viewed without any significant adenopathy. The endobronchial ultrasound was then removed. The 1T190 bronchoscope was then inserted. All areas were suctioned and the bronchoscope was removed. The procedure was then stopped. The patient is in recovery. Postprocedure chest x-ray is pending. As of now, no observed complications. MTDD
[2018-10-14] MEDS ORDERED: ONDANSETRON 4MG/2ML VIAL (J2405) IV PRN (10:30)
[2018-10-14] MEDS ORDERED: fentaNYL 100 MCG/2 ML INJECTION (J3010) IV PRN (10:30)
[2018-10-14] MEDS ORDERED: METOCLOPRAMIDE INJ 10MG/2ML VIAL (J2765) IV PRN (10:30)
[2018-10-14] MEDS ORDERED: ACETAMINOPHEN TAB 650MG DOSE (2X325MG) As Ordered ONE (10:36)
[2018-10-14 10:42] VITALS: BP 136/67
[2018-10-14] MEDS ORDERED: ACETAMINOPHEN TAB 650MG DOSE (2X325MG) PO PRN (10:45)
[2018-11-18] MEDS ORDERED: ONDA8TAB7 PO (09:05)
[2018-11-18] MEDS ORDERED: PROC10TA4 PO (09:05)
== END 2018-10-14 11:12 | disposition home or self-care (01) ==
LOC: M SDC 07:26
PROVIDERS: ATTEND Internal Medicine Pulmonary Disease
DX: C34.11 Malignant neoplasm of upper lobe, right bronchus or lung (principal); K21.9 Gastro-esophageal reflux disease without esophagitis; I10 Essential (primary) hypertension; J43.1 Panlobular emphysema; J96.11 Chronic respiratory failure with hypoxia; Z87.891 Personal history of nicotine dependence; Z79.51 Long term (current) use of inhaled steroids; Z79.899 Other long term (current) drug therapy; Z88.0 Allergy status to penicillin; Z88.2 Allergy status to sulfonamides; Z88.8 Allergy status to other drugs, medicaments and biological substances
CPT/HCPCS: 31623; 31628; 31654; 71045; 76000; 88104; 88305; 88342; J2250; J2370; J2405; J3010

== ENCOUNTER → 2018-11-11 | Outpatient (CLI) | payer OTHER ==
[~2018-11-11] MED LIST changes: +ONDA8TAB7 PO; +PROC10TA4 PO
--- NOTE | 2018-11-11 18:21 | REP ---
PET/CT: History: Staging adenocarcinoma of the lung. Comparisons: Comparison CT scan of the chest September 14, 2018. TECHNIQUE: 47 minutes following the intravenous injection of a 9.35 mCi dose of F-18 FDG, three-dimensional PET scintigraphy is acquired from the skull base to the proximal thighs. Triplanar noncontrast CT scanning is acquired through the same anatomic range for attenuation correction, and image registration with scan parameters optimized to minimize radiation exposure to the patient. PET scintigraphy and CT datasets were fused and displayed on a workstation with multiplanar and projection display capability. PET/CT Findings: There is extensive hypermetabolic uptake in the nodular opacity along the inferior aspect of the large right upper lobe bullous and in the right hilar region. There is right hilar, precarinal and superior pretracheal hypermetabolic adenopathy. The hypermetabolic activity in the right perihilar pulmonary parenchymal disease ranges to 10.68. Small superior mediastinal lymph nodes show maximum SUV value of 4.02. Precarinal lymph node avidity is 7.12. No other abnormal hypermetabolic pulmonary parenchymal uptake is seen. Head and neck soft tissues are unremarkable. No abnormal uptake is seen in the adrenals or elsewhere in the abdomen and pelvis. Impression: Hypermetabolic uptake in the right perihilar region as well as with right hilar and mediastinal lymphadenopathy as above. Electronically Signed by Anil Costello MD 11/11/2018 08:45 P
== END ==
LOC: M PLARAD 15:34
PROVIDERS: ATTEND Internal Medicine Pulmonary Disease
DX: C34.11 Malignant neoplasm of upper lobe, right bronchus or lung (principal); R59.0 Localized enlarged lymph nodes
CPT/HCPCS: 78815; A9552

== ENCOUNTER → 2018-11-13 | Outpatient (CLI) | payer OTHER ==
--- NOTE | 2018-11-13 14:35 | REP ---
MR Brain without and with contrast History: Lung carcinoma Contrast: ProHance 11 ml Areas of ink signal intensity on T2 with the as are present in the periventricular and subcortical white matter and marybeth . This represent small-vessel ischemic disease. No intraparenchymal hemorrhage, infarct, mass or midline shift. There is no abnormal enhancement. The ventricular system and cortical sulci are dilated consistent with minimal volume loss. There is no extra cerebral collection. The sinuses are clear. Impression: 1. Small vessel ischemic disease. 2. Minimal volume loss. Electronically Signed by Kong Vargas MD 11/13/2018 02:27 P
== END ==
LOC: M PLARAD 08:03
PROVIDERS: ATTEND Internal Medicine Medical Oncology
DX: I67.82 Cerebral ischemia (principal); C34.90 Malignant neoplasm of unspecified part of unspecified bronchus or lung

== ENCOUNTER → 2018-12-24 | Outpatient (CLI) | payer OTHER ==
[~2018-12-24] MED LIST changes: +BENA25TA5 PO; +ISOVUE-370 76% 100ML VIAL (Q9967) As Ordered ONE; +LEVO750T13 PO
--- NOTE | 2018-12-24 17:08 | REP ---
CT of the chest with IV contrast: Comparison is the most recent prior study dated 09/14/2018, without IV contrast: The known right hilar mass has increased in size today measuring 7.1 x 5.7 cm. This previously measured 5.4 x 4.2 cm. There is attenuation of the right upper lobe bronchi and vessels. The lung kirby are almost entirely replaced by a bulla bilaterally. This is unchanged. The right hilar mass extends posteriorly and superiorly to the pleura of the right hemithorax as previously. There are no infiltrates. There are no pleural effusions. The mediastinal nodes are not significantly changed. There are two stable nodules in the left lower lobe, unchanged. The thoracic aorta is unremarkable. Cardiac size is normal. However, there is a pericardial effusion as an interval change measuring up to 7 mm in depth. There is a grade III compression deformity of the approximate T12 vertebral body, unchanged. Impression: The right hilar mass has increased in size and attenuates the right upper lobe bronchi and vessels. There is almost complete replacement lung parenchyma with bulla bilaterally. This is unchanged. There are no acute infiltrates or pleural effusions. There is a pericardial effusion measuring 7 mm depth as an interval change. There are two stable small left lower lobe lung nodules, unchanged. The mediastinal lymph nodes are unchanged. Grade II compression deformity of the approximate to at T12 vertebral body, unchanged. Electronically Signed by Jamie Toscano MD 12/24/2018 04:59 P
== END ==
LOC: M RAD 15:38
PROVIDERS: ATTEND Internal Medicine Medical Oncology
DX: C34.90 Malignant neoplasm of unspecified part of unspecified bronchus or lung (principal)

== ENCOUNTER 2019-01-11 21:21 | Inpatient (IN) | payer OTHER ==
[~2019-01-11] VITALS: Ht 157.5 cm; Wt 49.6 kg
[~2019-01-11 21:21] MED LIST changes: +ASPI81TA85 PO; +FOLI0.4T PO; -ISOVUE-370 76% 100ML VIAL (Q9967) As Ordered ONE
[2019-01-11 21:57] LABS: VENOUS BASE EXCESS 1.2 (-2.0-2.0); VENOUS HCO3 26.1 MEQ/L (23.0-27.0); VENOUS O2 SATURATION 71.9 % (60.0-80.0); VENOUS PARTIAL PRESSURE CO2 42.6 mmHg (38.0-50.0); VENOUS PARTIAL PRESSURE O2 36.4 mmHg (30.0-50.0); VENOUS PH 7.405 UNITS (7.330-7.430); VENOUS STANDARD HCO3 24.9 MEQ/L; VENOUS TOTAL CO2 27.4 MEQ/L (24.0-28.0)
[2019-01-11 21:58] LABS: HEMATOCRIT 38.8 % (36.0-47.0); HEMOGLOBIN 12.8 g/dl (12.0-15.5); MEAN CORPUSCULAR HEMOGLOBIN 31.8 pg (27.0-33.0); MEAN CORPUSCULAR VOLUME 96.3 fl (80.0-96.0); PLATELET COUNT, AUTOMATED 275 10^3/uL (150-450); RED BLOOD COUNT 4.03 10^6/uL (4.00-5.40)
[2019-01-11] MEDS ORDERED: METOCLOPRAMIDE INJ 10MG/2ML VIAL (J2765) IV ONE (22:00)
[2019-01-11] MEDS ORDERED: MORPHINE 4 MG/ML 1ML VIAL/SYRINGE (J2270) IV ONE (22:00)
[2019-01-11] MEDS ORDERED: NS 1,000 ML IV ONE (22:00)
[2019-01-11 22:18] LABS: EOSINOPHILS 8 % (0-5); LYMPHOCYTES 13 % (16-52); MONOCYTES 3 % (0-8); NEUTROPHILS 74 % (35-75)
[2019-01-11 22:19] LABS: PLATELET ESTIMATE NORMAL (NORMAL)
[2019-01-11 22:27] LABS: ALBUMIN 3.6 GM/DL (3.2-5.2); ALT/SGPT 183 U/L (12-78); BILIRUBIN,DIRECT 0.3 MG/DL (0.0-0.2); BILIRUBIN,TOTAL 0.9 MG/DL (0.2-1.0); BLOOD UREA NITROGEN 14 MG/DL (7-18); CARBON DIOXIDE LEVEL 28 MEQ/L (21-32); CHLORIDE LEVEL 102 MEQ/L (98-107); CREATININE FOR GFR 0.61 MG/DL (0.55-1.30); GLOMERULAR FILTRATION RATE > 60.0 (>45); GLUCOSE, FASTING 99 MG/DL (70-100); LIPASE 57 U/L (73-393); NT-PRO BNP 95 PG/ML (<125); POTASSIUM SERUM 4.4 MEQ/L (3.5-5.1); SODIUM LEVEL 138 MEQ/L (136-145); TOTAL PROTEIN 7.3 GM/DL (6.4-8.2)
--- NOTE | 2019-01-11 23:51 | HPEPDOC ---
[facility] Medical History & Physical Date of Admission Jan 12, 2019 Date of Service: Jan 12, 2019 Primary Care Physician: Alta Mohamud PEDIATRIC OPHTHALMOLOGIST Attending Physician: KARMEN LEO MD History and Physical Time of service 12:40 AM on January 12 2019 CHIEF COMPLAINT: Nausea, vomiting and diarrhea HISTORY OF PRESENT ILLNESS: Ms. Crain is a 63-year-old female presents with complaints of nausea, nonbloody vomiting twice today, and innumerable bouts of nonbloody diarrhea that began on Friday. Of note, she had her second session of chemotherapy on ; after the first session of chemotherapy in November she had a similar reaction. She decided to come to the hospital because she felt "run down" and "couldn't move". Associated symptoms include cramping abdominal pain which was more severe yesterday. She denies having fevers or chills. She has a chronic cough productive of yellow sputum, and has been wheezing since . She thinks her COPD may be acting up and may have been triggered by the humid weather. REVIEW OF SYSTEMS: 12 point review of systems negative except as listed in HPI PAST MEDICAL/SURGICAL HISTORY: 1. 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 Oxygen-dependent COPD / emphysema (dependent on 3 L via nasal cannula) 3. GERD. 4. Status post cholecystectomy. 5. Status post partial hysterectomy. 6. Status post bilateral carpal tunnel surgery. 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 HOME MEDICATIONS: Please see below. PHYSICAL EXAMINATION: VITAL SIGNS: Temperature 99.1, pulse 96, respiratory 22, blood pressure 127/77, pulse oximetry 93% on 3 L by nasal cannula GENERAL APPEARANCE: Slim built, appears chronically ill, well-developed, not toxic in appearance HEENT: No muscle cephalic, atraumatic, mucous members are moist and pink, nasal cannulas in place CARDIOVASCULAR: Regular rate and rhythm, no murmurs, rubs or gallops, radial pulses are intact, there is no lower extremity edema, extremity is warm and well-perfused LUNGS: There is equal air entry bilaterally, and prominent expiratory wheezing ABDOMEN: The abdomen is flat, soft and nontender on palpation MUSCULOSKELETAL: Range of motion is intact in all 4 extremities NEUROLOGICAL: Radial nerves II-12 are grossly intact, speech is not dysarthric PSYCHIATRIC: She is alert and oriented to person, place and time and able to understand and follow commands LABORATORY DATA: The CBC is unremarkable. The CMP is remarkable for an AST of 147, ALT 183, and alkaline phosphatase 195 IMAGING: Chest x-ray appears unremarkable but the final read is pending MICROBIOLOGY: Please see below. ASSESSMENT: Ms. Crain is a 63-year-old female with a past medical history of COPD and lung adenocarcinoma . The admitted for management of chemotherapy-induced nausea, vomiting and diarrhea. PLAN: 1.Chemo induced n/v/d The patient reports having similar reaction to chemotherapy in the past. Plan: admit to PCU / IVF / zofran PRN / CLD diet in AM / will not order stool studies or loperamide while we monitor her vitals for the next 12 hours 2.Oxygen-dependent Acute COPD Possibly triggered by humidity versus bronchitis due to a viral infection The patient reports having a cough productive of yellow sputum since November, which has not changed in character. 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 Mild Transaminitis Likely 2/2 chemo Plan: trend LFTs if they are up-trending the day time team can decide if a liver US is warranted 4.Unresectable Stage IIIB PDL -1 ++ adenocarcinoma of the lungs She was diagnosed in September 2018, and received her first dose of chemotherapy (including carboplatin, pembrolizumab) in November. She reports the plan is for 3 sessions of chemo Plan: f/u w Oncologist on an out patient basis DVT prophylaxis with Lovenox. Disposition pending clinical course Laboratory Data CBC/BMP Laboratory Tests 01/11/19 21:49 Red Blood Count 4.03, Mean Corpuscular Volume 96.3 H, Mean Corpuscular Hemoglobin 31.8, Mean Corpuscular Hemoglobin Concent 33.0, Red Cell Distribution Width 14.5 Microbiology Microbiology 01/11/19 Blood Culture, Received Pending Home Medications Scheduled Aspirin (Aspir 81) 81 Mg Tablet.dr, 1 TAB PO DAILY for pain Fluticasone Furoate (Arnuity Ellipta) 200 Mcg/Act Inh, 200 MCG INH DAILY Folic Acid (Folic Acid) 0.4 Mg Tablet, 800 MCG PO DAILY Ranitidine HCl (Ranitidine HCl) 150 Mg Tablet, 150 MG PO QHS Umeclidinium Brm/Vilanterol Tr (Anoro Ellipta 62.5-25 Mcg INH) 1 Each Blst.w.dev, 1 INH INH DAILY Scheduled PRN Acetaminophen (Tylenol Extra Strength) 500 Mg Tablet, 500 MG PO Q4H PRN for PAIN Albuterol Sulfate (Ventolin Hfa) 108 Mcg/Act Aer, 2 PUFFS INH QID PRN for SHORTNESS OF BREATH Ondansetron HCl (Ondansetron HCl) 8 Mg Tablet, 8 MG PO Q6H PRN for NAUSEA OR VOMITING Prochlorperazine Maleate (Prochlorperazine Maleate) 10 Mg Tablet, 10 MG PO Q8H PRN for NAUSEA OR VOMITING Allergies Coded Allergies: cefaclor (Verified Allergy, Unknown, 10/12/18) sulfamethoxazole (Verified Allergy, Unknown, swelling, 10/12/18) trimethoprim (Verified Allergy, Unknown, swelling, 10/12/18) amoxicillin (Verified Adverse Reaction, Unknown, n/v, 10/12/18) clavulanic acid (Verified Adverse Reaction, Unknown, n/v, 10/12/18) omeprazole (Verified Adverse Reaction, Unknown, back and abdominal pain, 10/12/18) A-FIB/CHADSVASC A-FIB History Current/History of A-Fib/PAF?: No Current PO Anticoag Therapy: No KARMEN LEO MD Jan 11, 2019 23:51
[2019-01-12] MEDS ORDERED: ALBUTEROL 90 MCG/ACT 8GM HFA INHALER INH PRN (00:45)
[2019-01-12] MEDS ORDERED: ONDANSETRON 4 MG TAB (S0181) PO PRN (00:45)
[2019-01-12] MEDS ORDERED: PROCHLORPERAZINE 5 MG TAB (S0183) PO PRN (00:45)
[2019-01-12] MEDS ORDERED: methylPREDNISolone INJ 125 MG/2 ML VIAL (J2930) IV STA (01:15)
[2019-01-12] MEDS: IPRATROPIUM 0.5MG/ALBUTEROL 2.5MG INH SOL UD 3ML (DUONEB)(J7620) NEB SCH ×5 (02:00→21:29)
[2019-01-12 02:12] LABS: VENOUS BASE EXCESS -0.4 (-2.0-2.0); VENOUS HCO3 25.5 MEQ/L (23.0-27.0); VENOUS O2 SATURATION 89.6 % (60.0-80.0); VENOUS PARTIAL PRESSURE CO2 47.2 mmHg (38.0-50.0); VENOUS TOTAL CO2 26.9 MEQ/L (24.0-28.0)
[2019-01-12 04:00] VITALS: BP 141/59
[2019-01-12] MEDS: NS 1,000 ML IV SCH ×2 (04:30→16:40)
[2019-01-12 05:20] LABS: HEMATOCRIT 34.6 % (36.0-47.0); HEMOGLOBIN 11.2 g/dl (12.0-15.5); MEAN CORPUSCULAR HEMOGLOBIN 31.3 pg (27.0-33.0); MEAN CORPUSCULAR HGB CONC 32.4 g/dl (32.0-36.5); MEAN CORPUSCULAR VOLUME 96.6 fl (80.0-96.0); PLATELET COUNT, AUTOMATED 218 10^3/uL (150-450); RED BLOOD COUNT 3.58 10^6/uL (4.00-5.40); WHITE BLOOD COUNT 6.1 10^3/uL (4.0-10.0)
--- NOTE | 2019-01-12 05:45 | ECGEPIP ---
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
[2019-01-12 05:48] LABS: ALBUMIN 3.1 GM/DL (3.2-5.2); ALT/SGPT 136 U/L (12-78); BILIRUBIN,TOTAL 0.8 MG/DL (0.2-1.0); BLOOD UREA NITROGEN 13 MG/DL (7-18); CALCIUM LEVEL 8.1 MG/DL (8.8-10.2); CARBON DIOXIDE LEVEL 27 MEQ/L (21-32); CHLORIDE LEVEL 105 MEQ/L (98-107); CREATININE FOR GFR 0.58 MG/DL (0.55-1.30); GLOMERULAR FILTRATION RATE > 60.0 (>45); GLUCOSE, FASTING 124 MG/DL (70-100); POTASSIUM SERUM 4.1 MEQ/L (3.5-5.1); SODIUM LEVEL 137 MEQ/L (136-145); TOTAL PROTEIN 6.7 GM/DL (6.4-8.2)
[2019-01-12 08:00] VITALS: BP 113/55
[2019-01-12] MEDS: ENOXAPARIN 40 MG/0.4 ML SYRINGE (J1650) SC SCH (09:00)
[2019-01-12] MEDS: ASPIRIN 81 MG ENTERIC TAB PO SCH (09:24)
[2019-01-12] MEDS: PANTOPRAZOLE 40MG TAB (PROTONIX) PO SCH (09:24)
[2019-01-12] MEDS: predniSONE 20 MG TAB PO SCH (09:25)
[2019-01-12] MEDS: FOLIC ACID 1 MG TAB PO SCH (09:25)
--- NOTE | 2019-01-12 09:56 | REP ---
Portable chest x-ray: Single view. History: Rule out pneumothorax. Comparison study October 14, 2018. Findings: EKG monitoring electrodes overlie the chest. Oxygen delivery tubing is seen. The lungs are hyperinflated. Large bullous formation is seen in the right apex and there is a ill-defined somewhat spiculated opacity in the right perihilar region. These findings are unchanged. There is no evidence of pneumothorax. No acute infiltrate is seen. Mild bibasilar interstitial changes are noted left greater than right as before. Heart size is normal. Impression: No evidence of pneumothorax. Chronic changes. Electronically Signed by Anil Costello MD 01/12/2019 07:30 P
[2019-01-12] MEDS: DICYCLOMINE 10 MG CAP PO PRN (11:42)
[2019-01-12 12:00] VITALS: BP 118/59
[2019-01-12] MEDS: ANORO ELLIPTA INH SCH (13:56)
[2019-01-12] MEDS: ARNUITY ELLIPTA 200 MCG INH SCH (13:57)
[2019-01-12 16:00] VITALS: BP 114/57
[2019-01-12] MEDS: ACETAMINOPHEN 500 MG TAB PO PRN (16:42)
--- NOTE | 2019-01-12 17:47 | IPN ---
DATE: 01/12/2019 SUBJECTIVE: The patient feels better today with less cramping and abdominal pain and no nausea. She has had no bowel movement since leaving the emergency department. She has had no emesis since leaving the emergency department yesterday evening either. She still has some lower abdominal crampy discomfort but less than before. Her respiratory symptoms are status quo. She gets dyspneic with exertion but she is oxygen-dependent at home. She does have a history of chronic lung disease and is status post resection of right upper lobe and left middle lobe related to unresectable stage IIIB PDL-1 positive adenocarcinoma of the lung and she has emphysema and uses three liters of oxygen home. Family history is positive for multiple family members with lung cancer and the patient has a personal 60+ pack-year smoking history. OBJECTIVE: She is alert pleasant, cooperative, in no acute distress, breathing without significant effort, although there is limited accessory muscle use. When she is speaking or when she is resting quietly, there is an none visible. She has minimal expiratory wheezing audible anteriorly. No rales are noted. Equal expansion is appreciated. Heart: Regular rhythm without murmur. Abdomen: Mildly tender in the midabdomen. No rebound. Bowel sounds present. There is no pedal edema. LABORATORY FINDINGS: White count is 6000 with hemoglobin of 11.2 down slightly from yesterday, platelet count is acceptable at 218,000. Her metabolic profile shows a normal sodium and potassium, BUN 13, creatinine 0.58, fasting glucose 124, AST was 147 yesterday evening and is now 86, ALT was 183 and is now 136, alkaline phosphatase was 195 and now 162, albumin 3.1 today suggesting mild protein-calorie malnutrition. Lipase was measured yesterday and was normal. Venous blood gas showed pH 7.350 at 01:53 this morning, pO2 61.0. Imaging studies done yesterday included a chest x-ray. Curiously no reports available. The x-ray was done yesterday showing hyperexpanded lungs, a scar-like density in the right midlung field overlying proximally this third, fourth intercostal space at the sternal margin anteriorly, so portable film only. A small nodule noted, a scant effusion or perhaps some scarring tenting of the diaphragm margin on the right costophrenic angle. No definite acute process visualized. Again, the report is not available. ASSESSMENT: Chemotherapy-associated nausea, vomiting and diarrhea which has improved overnight. She is currently adequately hydrated with her maintenance therapy and is beginning to recover ability to take oral intake. PLAN: When she is able to demonstrate adequate oral intake then discharge her home. Anticipate this will be by tomorrow morning if not sooner. She will remain on observation status at this time.
[2019-01-12 20:00] VITALS: BP 136/65
[2019-01-12] MEDS: ONDANSETRON 4MG/2ML VIAL (J2405) IV PRN (20:18)
[2019-01-13] MEDS: IPRATROPIUM 0.5MG/ALBUTEROL 2.5MG INH SOL UD 3ML (DUONEB)(J7620) NEB SCH ×4 (02:00→19:21)
[2019-01-13] MEDS: ACETAMINOPHEN 500 MG TAB PO PRN ×2 (02:25→11:12)
[2019-01-13 04:00] VITALS: BP 113/62
[2019-01-13] MEDS: NS 1,000 ML IV SCH ×2 (04:57→20:59)
[2019-01-13 05:56] LABS: ALBUMIN 2.8 GM/DL (3.2-5.2); ALT/SGPT 77 U/L (12-78); BILIRUBIN,TOTAL 0.4 MG/DL (0.2-1.0); BLOOD UREA NITROGEN 9 MG/DL (7-18); CALCIUM LEVEL 7.6 MG/DL (8.8-10.2); CARBON DIOXIDE LEVEL 26 MEQ/L (21-32); CHLORIDE LEVEL 105 MEQ/L (98-107); CREATININE FOR GFR 0.55 MG/DL (0.55-1.30); GLOMERULAR FILTRATION RATE > 60.0 (>45); GLUCOSE, FASTING 83 MG/DL (70-100); POTASSIUM SERUM 3.4 MEQ/L (3.5-5.1); SODIUM LEVEL 138 MEQ/L (136-145); TOTAL PROTEIN 5.7 GM/DL (6.4-8.2)
[2019-01-13 08:00] VITALS: BP_SYST 121; BP_SYST 129; BP_DIAS 61; BP_DIAS 83
[2019-01-13] MEDS: FOLIC ACID 1 MG TAB PO SCH (08:07)
[2019-01-13] MEDS: PANTOPRAZOLE 40MG TAB (PROTONIX) PO SCH (08:07)
[2019-01-13] MEDS: ASPIRIN 81 MG ENTERIC TAB PO SCH (08:07)
[2019-01-13] MEDS: predniSONE 20 MG TAB PO SCH (08:07)
--- NOTE | 2019-01-13 08:12 | REP ---
RIGHT UPPER QUADRANT SONOGRAPHY: HISTORY: Elevated transaminases. History of lung carcinoma. History of cholecystectomy. FINDINGS: Scanning through right upper quadrant demonstrates a cyst in the medial aspect of the right posterior liver measuring 0.7 cm in greatest diameter. No other focal liver lesion is appreciated. Gallbladder is surgically absent. Common bile duct is prominent at the level of the pancreatic head measuring 1.5 cm in diameter. There is mild echogenic sludge-like material in the common bile duct. There is evidence of pneumobilia within the liver bile ducts. There is no evidence of ascites. Right kidney measures 9.2 x 4.9 x 4.1 cm. No hydronephrosis or focal renal abnormality. Limited views of the pancreas show no abnormality. IMPRESSION: Post cholecystectomy with dilated common bile duct and pneumobilia. No pancreatic abnormality is seen. Electronically Signed by Anil Costello MD 01/13/2019 09:10 A
[2019-01-13] MEDS: ARNUITY ELLIPTA 200 MCG INH SCH (08:42)
[2019-01-13] MEDS: ANORO ELLIPTA INH SCH (08:42)
[2019-01-13] MEDS: ENOXAPARIN 40 MG/0.4 ML SYRINGE (J1650) SC SCH (09:00)
[2019-01-13] MEDS: DICYCLOMINE 10 MG CAP PO PRN (11:12)
[2019-01-13 12:00] VITALS: BP 120/59
[2019-01-13] MEDS ORDERED: POTASSIUM CHLORIDE 10 MEQ SR TABLET PO ONE (12:00)
[2019-01-13] MEDS ORDERED: MORPHINE 4 MG/ML 1ML VIAL/SYRINGE (J2270) IV PRN (16:00)
[2019-01-13] MEDS: GASTROGRAFIN SOLUTION 30ML PO SCH ×2 (16:37→17:11)
[2019-01-13] MEDS ORDERED: ISOVUE-370 76% 100ML VIAL (Q9967) As Ordered ONE (17:27)
[2019-01-13] MEDS: MORPHINE 4 MG/ML 1ML VIAL/SYRINGE (J2270) IV PRN ×3 (18:07→23:43)
--- NOTE | 2019-01-13 18:33 | REPVR ---
EXAM: CT Abdomen and Pelvis With Contrast EXAM DATE/TIME: 01/13/2019 5:45 PM CLINICAL HISTORY: 63 years old" female; Abdominal pain; Generalized TECHNIQUE: Imaging protocol: Axial computed tomography images of the abdomen and pelvis with intravenous contrast. Coronal and sagittal reformatted images were created and reviewed. Radiation optimization: All CT scans at this facility use at least one of these dose optimization techniques: automated exposure control; mA and/or kV adjustment per patient size (includes targeted exams where dose is matched to clinical indication); or iterative reconstruction. Contrast material: ISOVUE 370;Contrast volume: 100 ml;Contrast route: IV; COMPARISON: CT ABD/PEL W/IV CONTRAST ONLY 07/08/2017 3:50 PM FINDINGS: Lungs: There is a large followup anterior right lung base. Scattered bulla are noted and there is hyperinflation of the lungs all consistent with severe changes of COPD and emphysema. Heart: The heart is normal in size and there is no pericardial effusion. Liver: Normal-appearing liver. Gallbladder and bile ducts: The patient is post cholecystectomy. There is post cholecystectomy ectasia of the midportion of the common bile duct. The proximal and distal common bile duct appears normal in size. Pancreas: Normal pancreas. Spleen: Normal. No splenomegaly. Adrenals: Normal adrenal glands. Kidneys and ureters: There is enhancement of both kidneys. Stomach and bowel: There is moderate dilatation of all the small bowel with a large amount of secretions and numerous air-fluid levels. This may be secondary to ileus or enteritis. To exclude any possibility of developing obstruction I would recommend a followup CT scan to determine if the contrast makes its way through the bowel and into the colon. This could be done with a followup CT in 3 hours. There is a large amount of contrast within the stomach and a air-fluid level. There is no evidence of inflammation in the region of the cecum. Appendix: The appendix could not be identified with certainty. Intraperitoneal space: There is no evidence of pneumoperitoneum. Vasculature: There is opacification of the SMV and SMA. There is opacification of the aorta which appears intact. There is calcification of the aorta consistent with atherosclerotic changes. Lymph nodes: There is no evidence of significant lymphadenopathy. Bladder: Normal urinary bladder. Reproductive: The patient is status post hysterectomy. Bones/joints: There is moderate scoliosis of the lumbar spine. There is a moderate compression of T12 with loss of two thirds of vertebral height greater on the left. Soft tissues: Unremarkable. IMPRESSION: 1. There is moderate distention of all of the small bowel with numerous air-fluid levels a large amount of secretions. Almost all of the contrast remains in the stomach. I would recommend a followup CT in 3 hours to determine if the contrast enters the right colon and to exclude any possibility of obstruction. 2. The patients significant small bowel dilatation could be secondary to ileus, enteritis or obstruction. Electronically signed by: Yair Amaya On 01/13/2019 18:32:28 PM
[2019-01-13 20:00] VITALS: BP 121/58
--- NOTE | 2019-01-13 20:24 | IPN ---
DATE: 01/13/2019 SUBJECTIVE: The patient is nauseated, having cramping with midabdominal discomfort. Not able to keep in enough oral to think about being discharged home. OBJECTIVE: Intake over the last 24 hours orally was 886. She has had two bowel movements (BMs) that she says were watery. She continues to have cramping abdominal pain. Vital signs: Blood pressure 121/61, pulse 89, respiratory rate 22 and unlabored, oxygen saturation 91% on 2 liters, temperature 97.6. EXAMINATION: Alert, pleasant, minimal use of accessory muscles, diminished breath sounds throughout. No wheezing or rales are noted. Abdomen: Bowel sounds are active. She has diffuse midabdominal discomfort with palpation. She does have cramping and loose stool with ongoing nausea, limiting ability to take orally. LABORATORY DATA: Today shows a white count of 6100, hemoglobin 11.2, suspect decrease overnight related to hydration. Her BUN is down from 14 on admission to 9 today, creatinine 0.55, potassium is low at 3.4. Her albumin is 2.8, down from 93.6 on admission. ASSESSMENT: 1. Chemotherapy-related nausea, vomiting, diarrhea, which is persistent, still inadequately tolerating oral intake to reliably be discharged. 2. Hypokalemia, developed as a consequence of this problem. 3. Underlying adenocarcinoma of lung, recently treated Keytruda. PLAN: Continue intravenous (IV) supportive hydration at this time. Medications for nausea until symptoms subside. Discharge when she is able to demonstrate adequate oral intake.
[2019-01-13] MEDS: ONDANSETRON 4MG/2ML VIAL (J2405) IV PRN (20:57)
--- NOTE | 2019-01-14 00:29 | REPVR ---
EXAM: CT Abdomen and Pelvis Without Contrast EXAM DATE/TIME: 01/13/2019 11:31 PM CLINICAL HISTORY: 63 years old, female; Abnormal findings; Abnormal radiologic finding of the abdomen; Radiologic exam and body structure: CT; Additional info: Re-evaluation of possible sbo seen on previous CT TECHNIQUE: Imaging protocol: Axial computed tomography images of the abdomen and pelvis without contrast. Coronal and sagittal reformatted images were created and reviewed. Radiation optimization: All CT scans at this facility use at least one of these dose optimization techniques: automated exposure control; mA and/or kV adjustment per patient size (includes targeted exams where dose is matched to clinical indication); or iterative reconstruction. COMPARISON: CT ABD PELVIS WITH CONTRAST 01/13/2019 5:48 PM FINDINGS: Advanced cystic emphysematous changes in the lung bases for age. No pleural effusion. Small pericardial effusion measuring up to 6 mm over the right cardiac ventricle. Mild intrahepatic biliary ductal dilatation likely related to prior cholecystectomy. No other focal hepatic abnormalities. The spleen, pancreas and adrenals are grossly normal. There is a cortical cyst in the mid left kidney measuring up to 4.5 cm. Excreted contrast material within the collecting systems bilaterally. No other renal abnormalities or obstructive uropathy. Atherosclerotic changes identified within the abdominal aorta and aortic branch vessels with no evidence of aneurysmal dilatation. There are mildly dilated small bowel loops in the midabdomen measuring up to 3.2 cm in diameter. There is moderate fluid distention of the gastric lumen. Distal small bowel loops and colon are relatively decompressed. Left-sided colonic diverticular changes with no evidence of diverticulitis. Pelvic organs are grossly normal. Excreted contrast in the urinary bladder. No free fluid in the abdomen or pelvis. Significant anterior compression deformity of T12 of uncertain acuity. Visualized osseous structures are otherwise unremarkable for age. IMPRESSION: Moderate fluid distention of the gastric lumen. Mildly dilated fluid-filled loops of small bowel measuring up to 3.2 cm. Distal small bowel loops and colon are relatively decompressed. Findings remain concerning for early complete, intermittent or partial small bowel obstruction. Continued followup advised. No other acute intra-abdominal or pelvic process. Additional nonemergent findings as described above. Electronically signed by: Ankush Winkler On 01/14/2019 00:29:20 AM
[2019-01-14] MEDS: IPRATROPIUM 0.5MG/ALBUTEROL 2.5MG INH SOL UD 3ML (DUONEB)(J7620) NEB SCH ×4 (01:25→20:30)
[2019-01-14 04:00] VITALS: BP 132/62
[2019-01-14 07:59] LABS: ALBUMIN 2.8 GM/DL (3.2-5.2); ALT/SGPT 64 U/L (12-78); BILIRUBIN,TOTAL 0.3 MG/DL (0.2-1.0); BLOOD UREA NITROGEN 7 MG/DL (7-18); CALCIUM LEVEL 7.9 MG/DL (8.8-10.2); CARBON DIOXIDE LEVEL 28 MEQ/L (21-32); CHLORIDE LEVEL 107 MEQ/L (98-107); CREATININE FOR GFR 0.53 MG/DL (0.55-1.30); GLOMERULAR FILTRATION RATE > 60.0 (>45); GLUCOSE, FASTING 80 MG/DL (70-100); POTASSIUM SERUM 3.8 MEQ/L (3.5-5.1); SODIUM LEVEL 140 MEQ/L (136-145); TOTAL PROTEIN 5.4 GM/DL (6.4-8.2)
[2019-01-14 08:00] VITALS: BP 112/59
[2019-01-14] MEDS: ANORO ELLIPTA INH SCH (08:05)
[2019-01-14] MEDS: ARNUITY ELLIPTA 200 MCG INH SCH (08:06)
[2019-01-14] MEDS: FOLIC ACID 1 MG TAB PO SCH (08:38)
[2019-01-14] MEDS: PANTOPRAZOLE 40MG TAB (PROTONIX) PO SCH (08:38)
[2019-01-14] MEDS: ENOXAPARIN 40 MG/0.4 ML SYRINGE (J1650) SC SCH (08:38)
[2019-01-14] MEDS: predniSONE 20 MG TAB PO SCH (08:38)
[2019-01-14] MEDS: ASPIRIN 81 MG ENTERIC TAB PO SCH (08:38)
[2019-01-14 09:37] LABS: HEMATOCRIT 28.2 % (36.0-47.0); MEAN CORPUSCULAR HEMOGLOBIN 31.3 pg (27.0-33.0); MEAN CORPUSCULAR HGB CONC 31.9 g/dl (32.0-36.5); MEAN CORPUSCULAR VOLUME 97.9 fl (80.0-96.0); PLATELET COUNT, AUTOMATED 108 10^3/uL (150-450); RED BLOOD COUNT 2.88 10^6/uL (4.00-5.40); WHITE BLOOD COUNT 4.4 10^3/uL (4.0-10.0)
[2019-01-14 10:23] LABS: ATYPICAL LYMPH 1 % (0-5); EOSINOPHILS 2 % (0-5); HYPOCHROMASIA 1+; MONOCYTES 5 % (0-8); NEUTROPHILS 61 % (35-75); PLATELET ESTIMATE DECREASED (NORMAL)
[2019-01-14 10:24] LABS: ANISOCYTOSIS 1+; POIKILOCYTOSIS 1+
[2019-01-14 11:00] LABS: LYMPHOCYTES 29 % (16-52)
--- NOTE | 2019-01-14 11:06 | IPNPDOC ---
Subjective Date Seen The patient was seen on 01/14/19. Subjective Chief Complaint/HPI Pt this morning seen with family at bedside. She reports vomiting after trying to eat some toast this morning. States abd pain is better today than yesterday, also feels less distended. She had a small formed stool this morning, she is passing gas. General: Denies: Fatigue Constitutional: Denies: Chills, Fever Pulmonary: Denies: Dyspnea, Cough Cardiovascular: Denies: Chest Pain, Palpitations Gastrointestinal: Reports: Nausea, Vomiting, Abdominal Pain Neurological: Denies: Weakness Psych: Reports: Mood Normal Objective Physical Examination General Exam: Positive: Alert, Cooperative, No Acute Distress ENT Exam: Positive: Mucous membr. moist/pink Chest Exam: Positive: Clear to auscultation, Normal air movement Heart Exam: Positive: Rate Normal, Normal S1, Normal S2 Abdomen Exam: Positive: BS Hypoactive, Soft, Tenderness (mildly diffusely tender, mild distention) Extremity Exam: Negative: Edema Neuro Exam: Positive: Normal Speech Psych Exam: Positive: Mental status NL, Mood NL Assessment /Plan Problems (1) SBO (small bowel obstruction) Status: Acute Response to Treatment: Stable Discussed With: Nurse, Patient Problem Specific Plan: Monitor Clinically Problem Text: Transition to NPO with sips and ice chips, obtain KUB in AM, pt is feeling better, have held off on NG for today, consider GS consult. + BM this morning. (2) HTN (hypertension) Status: Chronic Response to Treatment: Stable Problem Specific Plan: Monitor Clinically Plan/VTE VTE Prophylaxis Ordered?: Yes VS, I&O, [facility]H, [facility] Vital Signs/I&O Vital Signs Date Time Temp Pulse Resp B/P (MAP) Pulse Ox O2 Delivery O2 Flow Rate FiO2 01/14/19 08:00 2.0 01/14/19 08:00 97.2 91 18 112/59 (76) 93 01/12/19 04:04 Nasal Cannula I&O- Last 24 Hours up to 6 AM 01/14/19 06:00 Intake Total 1680 ml Output Total 425 ml Balance 1255 ml Laboratory Data 24H LABS Laboratory Tests 2 01/13/19 11:22: Bedside Glucose (Misc Panel) 114 01/14/19 05:12: Immature Granulocyte % (Auto) , Nucleated Red Blood Cells % (auto) 0.0, Neutrophils 61, Band Neutrophils 2, Lymphocytes (Manual) 29, Monocytes (Manual) 5, Eosinophils (Manual) 2, Atypical Lymphocytes 1, Platelet Estimate DECREASED, Hypochromasia 1+, Poikilocytosis 1+, Anisocytosis 1+, Anion Gap 5L, Glomerular Filtration Rate > 60.0, Blood Urea Nitrogen 7, Creatinine 0.53L, Sodium Level 1 40, Potassium Level 3.8, Chloride Level 107, Carbon Dioxide Level 28, Calcium Level 7.9L, Aspartate Amino Transf (AST/SGOT) 28, Alanine Aminotransferase (ALT/SGPT) 64, Alkaline Phosphatase 94, Total Bilirubin 0.3, Total Protein 5.4L, Albumin 2.8L, Albumin/Globulin Ratio 1.08 CBC/BMP Laboratory Tests 01/14/19 05:12 Red Blood Count 2.88 L, Mean Corpuscular Volume 97.9 H, Mean Corpuscular Hemoglobin 31.3, Mean Corpuscular Hemoglobin Concent 31.9 L, Red Cell Distribution Width 14.6 H, Calcium Level 7.9 L, Aspartate Amino Transf (AST/SGOT) 28, Alanine Aminotransferase (ALT/SGPT) 64, Alkaline Phosphatase 94, Total Bilirubin 0.3, Total Protein 5.4 L, Albumin 2.8 L Microbiology Microbiology 01/12/19 Blood Culture - Preliminary, Resulted No Growth after 48 hours. All Specime... 01/11/19 Blood Culture - Preliminary, Resulted No Growth after 48 hours. All Specime... 01/13/19 Gastrointestinal Tract Panel (PCR) - Final, Complete Attending Note Attending Note since she is less tender and passing stool will, advance to clear liquid diet. HEMANT PRESTON PA-C Jan 14, 2019 11:06 Rosendo Bishop MD Jan 14, 2019 12:17
[2019-01-14] MEDS: METOCLOPRAMIDE 5 MG TAB PO SCH ×3 (13:44→20:16)
[2019-01-14] MEDS: ACETAMINOPHEN 500 MG TAB PO PRN ×2 (13:47→18:25)
[2019-01-14] MEDS: NS 1,000 ML IV SCH (13:58)
[2019-01-14 14:15] VITALS: BP 100/77
[2019-01-14] MEDS: ONDANSETRON 4MG/2ML VIAL (J2405) IV PRN (19:29)
[2019-01-14] MEDS: MORPHINE 4 MG/ML 1ML VIAL/SYRINGE (J2270) IV PRN (19:36)
[2019-01-14 22:00] VITALS: BP_SYST 104; BP_SYST 129; BP_DIAS 76; BP_DIAS 78
[2019-01-14] MEDS: MAALOX 30 ML SUSP *UDC PO PRN (23:33)
[2019-01-15] MEDS: MORPHINE 4 MG/ML 1ML VIAL/SYRINGE (J2270) IV PRN ×6 (01:30→22:12)
[2019-01-15] MEDS: IPRATROPIUM 0.5MG/ALBUTEROL 2.5MG INH SOL UD 3ML (DUONEB)(J7620) NEB SCH ×4 (01:45→21:05)
[2019-01-15] MEDS: NS 1,000 ML IV SCH (02:29)
[2019-01-15 06:00] VITALS: BP 107/80
[2019-01-15] MEDS: ANORO ELLIPTA INH SCH (08:11)
[2019-01-15] MEDS: ARNUITY ELLIPTA 200 MCG INH SCH (08:11)
[2019-01-15] MEDS: METOCLOPRAMIDE 5 MG TAB PO SCH ×2 (08:32→12:30)
[2019-01-15] MEDS: PANTOPRAZOLE 40MG TAB (PROTONIX) PO SCH (08:32)
[2019-01-15] MEDS: ASPIRIN 81 MG ENTERIC TAB PO SCH (08:32)
[2019-01-15] MEDS: predniSONE 20 MG TAB PO SCH (08:32)
[2019-01-15] MEDS: FOLIC ACID 1 MG TAB PO SCH (08:32)
[2019-01-15] MEDS: ENOXAPARIN 40 MG/0.4 ML SYRINGE (J1650) SC SCH ×2 (08:32→08:36)
--- NOTE | 2019-01-15 08:46 | REP ---
KUB: Single view. History: Small bowel obstruction. Comparison is made with a CT findings from January 13, 2019. Findings: There are clips in the right upper quadrant. There is air distributed throughout the colon loops without significant colonic distension. There are a few air-filled small bowel loops in the left mid abdomen. Bowel gas pattern is somewhat improved from the CT study. There are still some mildly dilated small bowel loops in the left mid abdomen. No evidence of free air on this KUB. Scoliosis is again seen. Electronically Signed by Anil Costello MD 01/15/2019 08:55 A
--- NOTE | 2019-01-15 08:55 | IPNPDOC ---
Subjective Date Seen The patient was seen on 01/15/19. Subjective Chief Complaint/HPI Patient sitting in chair as I entered the room. She states over night she experienced some abdominal pain and vomiting. She denies vomiting this morning. She reports abdominal pain is better from last night, however, she still feels distended. She also reports BMs last evening, mainly loose, one small formed Constitutional: Denies: Chills, Fever Pulmonary: Reports: Dyspnea; Denies: Cough, Pleuritic Chest Pain Gastrointestinal: Reports: Nausea, Abdominal Pain, Other Symptoms (reports bloating); Denies: Vomiting, Hematochezia Psych: Reports: Mood Normal Objective Physical Examination General Exam: Positive: Alert, Cooperative, No Acute Distress ENT Exam: Positive: Mucous membr. moist/pink Chest Exam: Positive: Clear to auscultation, Normal air movement Heart Exam: Positive: Rate Normal, Normal S1, Normal S2 Abdomen Exam: Positive: BS Hyperactive, Tenderness (mildly diffusely tender, mild distention) Extremity Exam: Negative: Edema Neuro Exam: Positive: Normal Speech Psych Exam: Positive: Mental status NL, Mood NL Assessment /Plan Problems (1) SBO (small bowel obstruction) Status: Acute Response to Treatment: Stable Discussed With: Nurse, Patient Problem Specific Plan: Monitor Clinically Problem Text: 01/15/19: KUB this morning, results pending. Patient is consuming clear liquids. No further vomiting this morning. She is having BMs, some loose, some firm. GI panel negative. BC negative after [address] LING CROWLEY WHO RECOMMENDS THAT WE PROCEED WITH TREATING HER SBO, NG, TO DECOMPRESS. Transition to NPO with sips and ice chips, obtain KUB in AM, pt is feeling better, have held off on NG for today, consider GS consult. + BM this morning. (2) HTN (hypertension) Status: Chronic Response to Treatment: Stable Problem Specific Plan: Monitor Clinically (3) Anemia Status: Acute Response to Treatment: Stable Problem Text: 01/15/19: Hgb 9.0 yesterday. Will obtain CBC with diff today, iron studies, folate and B12 this morning. Most likely anemia of chronic disease/chemo related. Patient denies tarry stools or blood in stools. We will continue to monitor Plan/VTE VTE Prophylaxis Ordered?: Yes (Lovenox) VS, I&O, 24H, [facility] Vital Signs/I&O Vital Signs Date Time Temp Pulse Resp B/P (MAP) Pulse Ox O2 Delivery O2 Flow Rate FiO2 01/15/19 06:00 97.8 114 17 107/80 (89) 99 2.0 01/12/19 04:04 Nasal Cannula I&O- Last 24 Hours up to 6 AM 01/15/19 06:00 Intake Total 1215 ml Output Total 300 ml Balance 915 ml Laboratory Data Microbiology Microbiology 01/12/19 Blood Culture - Preliminary, Resulted No Growth after 72 hours. All specime... 01/11/19 Blood Culture - Preliminary, Resulted No Growth after 72 hours. All specime... 01/13/19 Gastrointestinal Tract Panel (PCR) - Final, Complete SAMIRA HUMPHRIES Jan 15, 2019 08:55 Rosendo Bishop MD Jan 15, 2019 13:55
[2019-01-15 10:38] LABS: HEMATOCRIT 29.5 % (36.0-47.0); HEMOGLOBIN 9.7 g/dl (12.0-15.5); MEAN CORPUSCULAR HEMOGLOBIN 32.1 pg (27.0-33.0); MEAN CORPUSCULAR HGB CONC 32.9 g/dl (32.0-36.5); MEAN CORPUSCULAR VOLUME 97.7 fl (80.0-96.0); PLATELET COUNT, AUTOMATED 101 10^3/uL (150-450); RED BLOOD COUNT 3.02 10^6/uL (4.00-5.40); WHITE BLOOD COUNT 2.5 10^3/uL (4.0-10.0)
[2019-01-15 11:01] LABS: ALT/SGPT 71 U/L (12-78); BILIRUBIN,TOTAL 0.2 MG/DL (0.2-1.0); BLOOD UREA NITROGEN 4 MG/DL (7-18); CARBON DIOXIDE LEVEL 29 MEQ/L (21-32); CHLORIDE LEVEL 104 MEQ/L (98-107); CREATININE FOR GFR 0.56 MG/DL (0.55-1.30); GLOMERULAR FILTRATION RATE > 60.0 (>45); GLUCOSE, FASTING 91 MG/DL (70-100); IRON (FE) 22 UG/DL (50-170); PERCENT SATURATION 12.3 % (13.2-45.0); POTASSIUM SERUM 3.3 MEQ/L (3.5-5.1); SODIUM LEVEL 141 MEQ/L (136-145); TOTAL IRON BINDING CAPACITY 179 UG/DL (250-450); TOTAL PROTEIN 5.7 GM/DL (6.4-8.2)
[2019-01-15 11:12] LABS: EOSINOPHILS 6 % (0-5); LYMPHOCYTES 32 % (16-52); MONOCYTES 1 % (0-8); NEUTROPHILS 56 % (35-75)
[2019-01-15 11:14] LABS: DOHLE BODIES 2+; PLATELET ESTIMATE DECREASED (NORMAL)
[2019-01-15 11:15] LABS: VITAMIN B12 LEVEL 1124 PG/ML (247-911)
[2019-01-15 11:17] LABS: FOLATE > 24.0 NG/ML (>5.4)
[2019-01-15] MEDS: MAALOX 30 ML SUSP *UDC PO PRN (12:31)
[2019-01-15 14:00] VITALS: BP 155/85
[2019-01-15] MEDS: ONDANSETRON 4MG/2ML VIAL (J2405) IV PRN (14:17)
[2019-01-15] MEDS: KCL 20MEQ in NS 1000ML 1,000 ML IV SCH (14:19)
[2019-01-15] MEDS: PROMETHAZINE INJ 25 MG/ML VIAL (J2550) IV PRN (16:27)
[2019-01-15] MEDS: methylPREDNISolone INJ 40 MG/1 ML VIAL (J2920) IV SCH (17:10)
[2019-01-15] MEDS: METOCLOPRAMIDE 10 MG TAB PO SCH (19:25)
[2019-01-15] MEDS: PANTOPRAZOLE 40MG INJ (PROTONIX) (C9113) IV SCH (20:16)
[2019-01-15 22:00] VITALS: BP 107/78
[2019-01-16] MEDS: METOCLOPRAMIDE 10 MG TAB PO SCH ×3 (00:13→12:00)
[2019-01-16] MEDS: MORPHINE 4 MG/ML 1ML VIAL/SYRINGE (J2270) IV PRN ×8 (01:03→23:21)
[2019-01-16] MEDS: IPRATROPIUM 0.5MG/ALBUTEROL 2.5MG INH SOL UD 3ML (DUONEB)(J7620) NEB SCH ×5 (01:47→21:25)
[2019-01-16] MEDS: ONDANSETRON 4MG/2ML VIAL (J2405) IV PRN ×2 (01:54→08:21)
[2019-01-16] MEDS: KCL 20MEQ in NS 1000ML 1,000 ML IV SCH ×2 (01:55→15:57)
[2019-01-16] MEDS: methylPREDNISolone INJ 40 MG/1 ML VIAL (J2920) IV SCH ×2 (05:32→18:25)
[2019-01-16 06:00] VITALS: BP 123/82
[2019-01-16 07:06] LABS: HEMATOCRIT 41.8 % (36.0-47.0); MEAN CORPUSCULAR HEMOGLOBIN 31.4 pg (27.0-33.0); MEAN CORPUSCULAR VOLUME 95.2 fl (80.0-96.0); PLATELET COUNT, AUTOMATED 139 10^3/uL (150-450); RED BLOOD COUNT 4.39 10^6/uL (4.00-5.40); WHITE BLOOD COUNT 9.2 10^3/uL (4.0-10.0)
[2019-01-16 07:09] LABS: HEMOGLOBIN 13.8 g/dl (12.0-15.5)
[2019-01-16 07:36] LABS: LYMPHOCYTES 9 % (16-52); MONOCYTES 11 % (0-8); NEUTROPHILS 72 % (35-75)
[2019-01-16] MEDS: ANORO ELLIPTA INH SCH (07:37)
[2019-01-16 07:39] LABS: POIKILOCYTOSIS 1+; POLYCHROMASIA 1+
[2019-01-16] MEDS: ARNUITY ELLIPTA 200 MCG INH SCH (07:39)
[2019-01-16 07:40] LABS: PLATELET ESTIMATE NORMAL (NORMAL)
[2019-01-16 07:41] LABS: DOHLE BODIES 1+
[2019-01-16 07:46] LABS: ALBUMIN 2.7 GM/DL (3.2-5.2); BILIRUBIN,TOTAL 0.4 MG/DL (0.2-1.0); CALCIUM LEVEL 8.4 MG/DL (8.8-10.2); CREATININE FOR GFR 1.23 MG/DL (0.55-1.30); GLOMERULAR FILTRATION RATE 46.6 (>45); POTASSIUM SERUM 4.8 MEQ/L (3.5-5.1); TOTAL PROTEIN 6.2 GM/DL (6.4-8.2)
[2019-01-16] MEDS: ENOXAPARIN 40 MG/0.4 ML SYRINGE (J1650) SC SCH (08:21)
[2019-01-16] MEDS: PANTOPRAZOLE 40MG INJ (PROTONIX) (C9113) IV SCH ×2 (08:21→20:57)
--- NOTE | 2019-01-16 08:56 | CR ---
DATE OF CONSULTATION: 01/15/2019 REASON FOR CONSULTATION: Possible small bowel obstruction versus ileus. HISTORY OF PRESENT ILLNESS: The patient is a 63-year-old female who presented over the upon the with nausea, emesis and diarrhea that all started on Friday she did have a second dose of chemo last and her symptoms started 48 hours after that. She currently is being treated for stage III adenocarcinoma of the lungs. She has only had two treatment so far there is no signs of any metastatic at this point. Since being in the hospital she has been on a diet. She has been tolerating some meals. She has been having passing lots of gas but over the last 24 hours she had been getting increasingly more distended. Because of increasing distension, I was asked to see her. Today she is distended. She has had an NG tube attempt to replace three times and has failed all she is refusing to have it placed again. She is burping a lot and her abdomen is tender and distended but she has not had any more emesis in the last few hours. PAST MEDICAL HISTORY: Lung cancer, COPD, emphysema gastroesophageal reflux disease. PAST SURGICAL HISTORY: Cholecystectomy, hysterectomy, bilateral carpal tunnel surgery. SOCIAL HISTORY: 60+ pack-year smoking history. FAMILY HISTORY: Noncontributory. ALLERGIES: Amoxicillin, cefaclor, clavulanic acid omeprazole sulfamethoxazole trimethoprim meds. Please see med rec. . REVIEW OF SYSTEMS: Pertinent, positive, and negatives as stated in the HPI. General alert and oriented times three. No acute stress. Vitals: Temperature 98.5, pulse 94, respirations 22, blood pressure 155/85, pulse ox 98% 2 liters nasal cannula. HEENT: Pupils equally round react to light and accommodation. Heart: S1-S2 regular rate and rhythm. Lungs: Clear auscultation bilaterally. Abdomen: Soft, distended, tender palpation diffusely. However, mostly in the lower quadrant. No signs of a ventral hernia. Extremities: No clubbing, cyanosis or edema. LABORATORY DATA: White count 2.5, hemoglobin 9.7, platelets 101, potassium 3.3. CT from the shows moderate fluid distension of the gastric lumen mildly dilated fluid-filled loops of small bowel. Distal small bowel loops and colon were relatively decompressed findings concerning for early complete intermittent or partial small-bowel obstruction continued follow up is advised. No other acute intra-abdominal processes are identified. Following that on the she had an abdominal x-ray which shows air distribution throughout the colon without significant colonic distension few air-filled small bowel loops in the left midabdomen. Bowel gas pattern is somewhat improved from the CT still some mildly dilated small bowel loops in the left midabdomen. No evidence of free air. ASSESSMENT/PLAN: The patient is a 63-year-old female with ileus versus partial versus complete bowel obstruction. At this time her symptoms are likely related to ileus versus partial obstructions since she is passing significant amounts of the air with her symptoms occurring within 48 hours after chemo. I suspect that has a played a significant role here. At this time I would recommend NG tube placement with decompression for least 72 hours prior to considering any surgical intervention since she is very high risk for surgery. However, since she is refusing at this time will keep her on just ice chips and sips of water and if she throws up again will recommend the place of the NG tube if she can tolerate it 24 hours and shows signs of improvement during that time that we will consider giving her some laxatives by mouth to see if that will increase in the process of getting rid of the ileus. Also I have started her on Reglan around the clock for now to see if that will help some gut motility. Thank you for the consult I will followup closely with you.
--- NOTE | 2019-01-16 09:24 | IPNPDOC ---
Text Note Date of Service The patient was seen on 01/16/19. NOTE Overnight she had to have the NGT replaced due to nausea and emesis. She has had a large volume out so far, but she is still having lots of abd pains. VSSAF, tachy NAD abd - soft, less distended, TTP diffuse, no rebound labs - below A) 63y/o female with n/v/d that all started 48 hours after chemo for lung cancer. Ileus vs. partial SBO P) NGT to LIS ambulate as much as possible ice and water monitor for 48-72 hours, and then consider diagnostic laparoscopy if symptoms do not improve. Lakhwinder Mcarthur DO VS,Fishbone, I+O VS, Fishbone, I+O Laboratory Tests 01/15/19 09:31 Red Blood Count 3.02 L, Mean Corpuscular Volume 97.7 H, Mean Corpuscular Hemoglobin 32.1, Mean Corpuscular Hemoglobin Concent 32.9, Red Cell Distribution Width 14.4, Calcium Level 8.0 L, Aspartate Amino Transf (AST/SGOT) 35, Alanine Aminotransferase (ALT/SGPT) 71, Alkaline Phosphatase 87, Total Bilirubin 0.2, Total Protein 5.7 L, Albumin 3.0 L 01/16/19 06:27 Red Blood Count 4.39, Mean Corpuscular Volume 95.2, Mean Corpuscular Hemoglobin 31.4, Mean Corpuscular Hemoglobin Concent 33.0, Red Cell Distribution Width 14.5, Calcium Level 8.4 L, Aspartate Amino Transf (AST/SGOT) 23, Alanine Aminotransferase (ALT/SGPT) 68, Alkaline Phosphatase 97, Total Bilirubin 0.4 #, Total Protein 6.2 L, Albumin 2.7 L Vital Signs Date Time Temp Pulse Resp B/P (MAP) Pulse Ox O2 Delivery O2 Flow Rate FiO2 01/16/19 08:22 16 01/16/19 06:00 98.2 145 123/82 (96) 95 2.0 01/12/19 04:04 Nasal Cannula I&O- Last 24 Hours up to 6 AM 01/16/19 06:00 Intake Total 2155 ml Output Total 400 ml Balance 1755 ml MARC MCARTHUR DO Jan 16, 2019 09:24
[2019-01-16 14:00] VITALS: BP 117/77
--- NOTE | 2019-01-16 14:10 | IPN ---
DATE: 01/16/2019 Hailee had to have a nasogastric tube inserted last night due to possible small bowel obstruction. She feels better since this was inserted. PHYSICAL EXAMINATION: Vital signs stable. Afebrile. Lungs clear. Heart regular rhythm. Abdomen soft, distended, less tender than earlier today. LABS: Electrolytes unremarkable. CBC shows a white count of 9.2. IMPRESSION: 1. Small bowel obstruction. Nasogastric suctioning, surgical consultation in place and note is reviewed. 2. Anemia. CBC stable.
[2019-01-16] MEDS: METOCLOPRAMIDE INJ 10MG/2ML VIAL (J2765) IV SCH ×2 (18:25→23:23)
[2019-01-16 21:07] VITALS: BP 134/84
[2019-01-16 22:00] VITALS: BP 141/86
[2019-01-16 23:31] VITALS: BP 134/81
[2019-01-17] MEDS: IPRATROPIUM 0.5MG/ALBUTEROL 2.5MG INH SOL UD 3ML (DUONEB)(J7620) NEB SCH ×4 (02:21→14:43)
[2019-01-17 06:00] VITALS: BP 137/80
[2019-01-17] MEDS: METOCLOPRAMIDE INJ 10MG/2ML VIAL (J2765) IV SCH ×3 (07:03→17:52)
[2019-01-17] MEDS: methylPREDNISolone INJ 40 MG/1 ML VIAL (J2920) IV SCH ×2 (07:03→17:52)
[2019-01-17] MEDS: MORPHINE 4 MG/ML 1ML VIAL/SYRINGE (J2270) IV PRN ×6 (07:03→19:58)
[2019-01-17] MEDS: KCL 20MEQ in NS 1000ML 1,000 ML IV SCH (07:04)
[2019-01-17] MEDS: ARNUITY ELLIPTA 200 MCG INH SCH (07:35)
[2019-01-17] MEDS: ANORO ELLIPTA INH SCH (07:35)
[2019-01-17 07:55] LABS: HEMATOCRIT 34.1 % (36.0-47.0); MEAN CORPUSCULAR HEMOGLOBIN 31.5 pg (27.0-33.0); MEAN CORPUSCULAR HGB CONC 32.8 g/dl (32.0-36.5); MEAN CORPUSCULAR VOLUME 96.1 fl (80.0-96.0); PLATELET COUNT, AUTOMATED 104 10^3/uL (150-450); RED BLOOD COUNT 3.55 10^6/uL (4.00-5.40); WHITE BLOOD COUNT 24.1 10^3/uL (4.0-10.0)
[2019-01-17 07:58] LABS: HEMOGLOBIN 11.2 g/dl (12.0-15.5)
[2019-01-17 08:22] LABS: ANISOCYTOSIS 1+; ATYPICAL LYMPH 1 % (0-5); LYMPHOCYTES 9 % (16-52); MONOCYTES 8 % (0-8); NEUTROPHILS 75 % (35-75); PLATELET ESTIMATE DECREASED (NORMAL); POLYCHROMASIA 1+; TOXIC GRANULATION 1+
[2019-01-17 08:27] LABS: ALBUMIN 2.7 GM/DL (3.2-5.2); BILIRUBIN,TOTAL 0.4 MG/DL (0.2-1.0); CALCIUM LEVEL 8.4 MG/DL (8.8-10.2); CREATININE FOR GFR 2.23 MG/DL (0.55-1.30); GLOMERULAR FILTRATION RATE 23.5 (>45); POTASSIUM SERUM 5.3 MEQ/L (3.5-5.1); TOTAL PROTEIN 5.8 GM/DL (6.4-8.2)
[2019-01-17] MEDS: ENOXAPARIN 40 MG/0.4 ML SYRINGE (J1650) SC SCH (09:00)
[2019-01-17] MEDS: PANTOPRAZOLE 40MG INJ (PROTONIX) (C9113) IV SCH ×2 (09:20→20:00)
[2019-01-17 10:00] VITALS: BP 124/69
[2019-01-17] MEDS ORDERED: NS 500 ML IV ONE (11:00)
[2019-01-17] MEDS: NS 1,000 ML IV SCH ×2 (11:23→19:57)
[2019-01-17] MEDS ORDERED: LevoFLOXacin IV 500 MG in APPROPRIATE DILUENT 1 EA IV ONE (13:00)
--- NOTE | 2019-01-17 13:38 | IPN ---
DATE: 01/17/2019 Hailee is seen on [facility]. The case was discussed with Dr. Mcarthur today. The patient has significant leukocytosis, developed acute kidney injury. PET CT of the abdomen and pelvis had been ordered. Results are pending. She has abdominal pain, nausea and feels sicker than yesterday. PHYSICAL EXAM: Afebrile. 137/80. General appearance: She actually looks better than her labs would anticipate. She is visiting with family members. Lungs: Clear. Heart: Regular rhythm. Abdomen: Distended, but less so than yesterday, mildly diffusely tender. Trace peripheral edema. LABS: Sodium 143, potassium 5.3, BUN 39, creatinine 2.2, glucose 119. White count is up to 24,000, hemoglobin 11.2, platelets 104. WBC differential 75 neutrophils, 7 bands. IMPRESSION: 1. Small bowel obstruction. Concerned about this leukocytosis. Stat CT of the abdomen and pelvis is ordered. Results are pending. Case discussed with Dr. Mcarthur. He will followup on CT results. 2. Acute kidney injury. Consultation placed with nephrology. Will discuss the case with on-call journeyman tool and die maker. 3. Anemia. Hemoglobin stable. 4. Leukocytosis. Probably related to underlying abdominal process. She has not received any Neupogen during this admission and her dose of steroid has been if anything slowly reduced. So, I do not think that accounts for this either. ADDENDUM: I have discussed CT results with Dr. Mcarthur. No formal report yet, but apparently the patient has pneumonia, suspected aspiration as she was having some emesis prior to agreeing to a nasogastric tube. She has multiple antibiotic allergies, including penicillin, cephalosporins, and sulfa. Renally, we will start Levaquin dosing per renal function with the assistance of clinical pharmacology. Addendum dictated: 01/17/2019 1237 Addendum transcribed: 01/17/2019 1541
[2019-01-17 14:00] VITALS: BP 120/65
[2019-01-17 22:00] VITALS: BP 116/60
[2019-01-18] MEDS: METOCLOPRAMIDE INJ 10MG/2ML VIAL (J2765) IV SCH ×4 (00:45→18:32)
[2019-01-18] MEDS: IPRATROPIUM 0.5MG/ALBUTEROL 2.5MG INH SOL UD 3ML (DUONEB)(J7620) NEB SCH ×5 (01:34→20:23)
[2019-01-18 02:00] VITALS: BP 124/64
[2019-01-18] MEDS: NS 1,000 ML IV SCH ×3 (03:44→22:43)
[2019-01-18] MEDS: methylPREDNISolone INJ 40 MG/1 ML VIAL (J2920) IV SCH ×2 (05:07→18:32)
[2019-01-18] MEDS: MORPHINE 4 MG/ML 1ML VIAL/SYRINGE (J2270) IV PRN ×4 (05:16→21:12)
[2019-01-18 06:00] VITALS: BP 123/99
[2019-01-18 07:20] LABS: ALBUMIN 2.2 GM/DL (3.2-5.2); ALT/SGPT 37 U/L (12-78); BILIRUBIN,TOTAL 0.2 MG/DL (0.2-1.0); BLOOD UREA NITROGEN 21 MG/DL (7-18); CALCIUM LEVEL 8.3 MG/DL (8.8-10.2); CARBON DIOXIDE LEVEL 23 MEQ/L (21-32); CHLORIDE LEVEL 113 MEQ/L (98-107); CREATININE FOR GFR 0.76 MG/DL (0.55-1.30); GLOMERULAR FILTRATION RATE > 60.0 (>45); GLUCOSE, FASTING 68 MG/DL (70-100); POTASSIUM SERUM 4.6 MEQ/L (3.5-5.1); SODIUM LEVEL 144 MEQ/L (136-145); TOTAL PROTEIN 5.4 GM/DL (6.4-8.2)
[2019-01-18] MEDS: ANORO ELLIPTA INH SCH (07:44)
[2019-01-18] MEDS: ARNUITY ELLIPTA 200 MCG INH SCH (07:46)
--- NOTE | 2019-01-18 08:09 | CR ---
DATE OF CONSULTATION: 01/17/2019 REFERRING PROVIDER: Paul Pfeiffer MD REASON FOR CONSULTATION: Acute renal failure. HISTORY OF PRESENT ILLNESS: Miss Crain is a 63-year-old female who was admitted to [facility] on January 12 due to nausea, vomiting and diarrhea. 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 She has started chemotherapy just recently with her first dose in November and second dose few days prior to this admission. It was felt that her gastrointestinal (GI) symptoms were probably related to chemotherapy and she was admitted. On imaging she has been found to have dilated small bowel loops and currently has a nasogastric tube in place for suctioning. She is also receiving IV fluid 125 mL per hour. The patient has chronic obstructive pulmonary disease (COPD) and a cough. There was also a diagnosis of pneumonia and she has been placed on antibiotic. Her baseline creatinine was 0.5 mg/dl which increased to 1.2 yesterday and up to 2.5 today. A nephrology consultation was requested today and the patient is seen on her bedside. PAST MEDICAL AND SURGICAL HISTORY: Significant for: 1. COPD on home oxygen, 3 liters. 2. History of unresectable stage IIIB adenocarcinoma of the lung. 3. History of gastroesophageal reflux disease. 4. Status post chemotherapy recently for her cancer. 5. History of cholecystectomy. 6. Partial hysterectomy. 7. Bilateral carpal tunnel surgery. PERSONAL AND SOCIAL HISTORY: Patient with long history of smoking. She is and has three children. She does not have any alcohol or recreational drug use. FAMILY HISTORY: Significant for lung cancer affecting multiple family members. ALLERGIES: The patient has multiple allergies includin. TRIMETHOPRIM. 2. SULFA. 3. CEFACLOR. 4. AMOXICILLIN. 5. OMEPRAZOLE. 6. CLAVULANIC ACID. MEDICATIONS: Her home medications included: - aspirin - Arnuity Ellipta - folic acid - ranitidine - Anoro Ellipta inhaler CURRENT MEDICATIONS: In the hospital currently she is receiving: - levofloxacin 250 mg every 48 hours - normal saline 125 mL per hour - Reglan 10 mg every 6 hours intravenously - Protonix 40 mg intravenous b.i.d. - Solu-Medrol 20 mg every 12 hours - Phenergan injection 12.5 mg every 6 hours p.r.n. for nausea - morphine 4 mg every 2 hours as needed for pain - Lovenox 40 mg daily - Her inhalers that she uses at home. REVIEW OF SYSTEMS: The patient denies any fever or chills. She denies any palpitations. She is short of breath and does have some cough. Ears, nose and throat are unremarkable. Cardiovascular system is significant for leg edema and chronic dyspnea. Respiratory system is significant for COPD and lung cancer for which she has been on chemo. GI system as per history of present illness. She had nausea, vomiting and frequent diarrhea prior to admission. She denies any diarrhea now. She has an nasogastric tube for suctioning. Genitourinary () system is significant for hesitancy and only small amount of urine output. She could not urinate for a couple of days and now she is urinating only 20-30 mL each time. She denies any dysuria or flank pain. She had a CT scan of abdomen and pelvis done this morning which showed a distended urinary bladder. Musculoskeletal system is significant for leg edema. She denies any significant arthritis. She has not used any NSAID. Endocrine negative for diabetes or thyroid problems. Hematological system is significant for no chronic anticoagulation, but right now she is on Lovenox. She does have mild anemia. Neurological system is negative for seizures or stroke. Skin is negative for rash or ulcers. PHYSICAL EXAMINATION: Temperature 99 degrees Fahrenheit, heart rate 125 per minute and respiratory rate 20 per minute. Blood pressure 124/69 mmHg and oxygen saturation 90% on 3 liters oxygen. Intake and output from yesterday showed total intake 1290 mL and output 3050 mL, which was mostly her gastric. She had only two small voids yesterday and one today. LABORATORY DATA: Today her WBC count is 24.1 while yesterday it was 9.2. Hemoglobin is 11.2, hematocrit 34 and platelets 104. Her BUN was 4 and creatinine 0.56 on January 15. Yesterday her BUN went up to 13 and creatinine 1.23. Today her BUN is 39 and creatinine 2.23. Sodium 143, potassium 5.3, CO2 24, calcium 8.4, total protein 5.8 and albumin 2.7. CAT scan of abdomen and pelvis done just this morning was reviewed independently. She did have dilated small bowel loops, evidence for a prior gallbladder surgery and a distended urinary bladder. There is a large cyst in her left kidney but no hydronephrosis. PROBLEMS: 1. Acute renal failure probably multifactorial. I am concerned about possibility of obstruction as she did have distended urinary bladder on the CAT scan this morning. The patient feels that she is voiding only 20-30 mL each time. She did void either just before she went down for CT scan or afterwards. We tried to do a bladder scan on the bedside which did not give any reliable results. I have advised the nursing staff to insert a Ohara catheter as she does have problems urinating. We will monitor her urine output. 2. Hyperkalemia related to acute renal failure. She is not receiving any TRAVON inhibitor, angiotensin receptor tryone, potassium-sparing diuretic or potassium supplement at present. She did have a low potassium in December and probably did receive some potassium supplement. Now she is receiving any. 3. Urinary obstruction. She does have distended bladder on the CAT scan and has been able to void only about 20-30 mL urine at the time. We are going to put a Ohara catheter and leave it in until her kidney function improves. 4. Small-bowel obstruction. She has been seen by Dr. Mcarthur and has a nasogastric tube which is hooked to suctioning. CAT scan this morning again did show dilated bowel loops. It remains to be seen if she improves with just NG tube or will require surgical intervention. Thank you for involving me in the care of Mrs. Crain. I will follow her along with you.
[2019-01-18 08:15] LABS: HEMATOCRIT 28.7 % (36.0-47.0); MEAN CORPUSCULAR HEMOGLOBIN 31.2 pg (27.0-33.0); MEAN CORPUSCULAR HGB CONC 31.7 g/dl (32.0-36.5); MEAN CORPUSCULAR VOLUME 98.3 fl (80.0-96.0); PLATELET COUNT, AUTOMATED 64 10^3/uL (150-450); RED BLOOD COUNT 2.92 10^6/uL (4.00-5.40); WHITE BLOOD COUNT 25.3 10^3/uL (4.0-10.0)
[2019-01-18 08:16] LABS: HEMOGLOBIN 9.1 g/dl (12.0-15.5)
--- NOTE | 2019-01-18 08:27 | REP ---
CT ABDOMEN PELVIS WITHOUT CONTRAST: 01/17/2019. Clinical history: Abdominal pain, leukocytosis. Small bowel distension, evaluate for obstruction. Comparison: 01/13/2019 without and with contrast studies. Findings: CT abdomen: There is a small new right pleural effusion with right lower lobe infiltrate in the posterior medial basal segments. Advanced COPD and bullous emphysematous changes are noted. Left lung shows some dependent atelectasis and fibrotic change without acute infiltrate. Prominent bulla is noted in the anterior right lung base as before. Heart size shows no change. Some mild pericardial thickening. No gross effusion. There is a nasogastric tube up coursing through the distal esophagus into the body of the stomach. No residual fluid in the stomach. Liver is not enlarged. There are clips from prior cholecystectomy. Some post cholecystectomy. Biliary air noted as anatomic common postoperative finding, unchanged. Visualized portions of pancreas are unremarkable. Small bowel loops are fluid filled loops are dilated up to 3.2 cm in the left upper quadrant. A few air-fluid levels are seen dilated loops, follow all the way into the deep pelvis and distally. Colon is collapsed. There are scattered diverticula on the left colon. Lung window review of all CT slices shows no perforation or free air. No generalized ascites. Mild infiltration of mesentery with edema. No adenopathy. The aorta is calcified and tortuous, unchanged. Bone windows unchanged with some compression deformity of the T12 as before. Degenerative disc and facet changes lumbar spine. CT pelvis: The sacrum, pelvis, hips and ischia show mild degenerative change but no destructive lesions or fractures. Bladder well distended. No renal, ureteral or bladder stone. A upper pole left renal cyst to 4.7 cm again seen. Distal left colonic diverticulosis without diverticulitis. Small bowel loops in the pelvis show fluid throughout. This is suggests a distal small bowel obstructive pattern with collapse of the colon. No ventral or inguinal hernia or umbilical hernia with bowel loops. Impression: 1. Pattern of small bowel obstruction with dilated small bowel loops from proximal to distal and collapsed colon. Some air-fluid levels in dilated loops of up to 3.2 cm diameter loops visible. Some mild edema in the mesentery. No perforation or free air or generalized ascites. 2. Colon collapsed. There is diverticulosis left colon and sigmoid without diverticulitis. 3. Status post cholecystectomy of postcholecystectomy changes, stable. 4. New small right pleural effusion, dense consolidation posterior medial basal segments of the right lower lobe suggesting acute infiltrate or aspiration pneumonitis. Advanced emphysematous changes in the lungs. ADDENDUM at the time of signature: A few hours after completion of the exam, I spoke to the attending surgeon about these findings. Electronically Signed by Castro Walker MD 01/18/2019 08:47 A
[2019-01-18 08:36] LABS: LYMPHOCYTES 1 % (16-52); MONOCYTES 1 % (0-8); NEUTROPHILS 98 % (35-75); PLATELET ESTIMATE DECREASED (NORMAL)
--- NOTE | 2019-01-18 09:16 | IPNPDOC ---
Subjective Date Seen The patient was seen on 01/18/19. Subjective Chief Complaint/HPI ileus Events since last encounter Continues with NG output. Denies flatus. c/o cough and nasal congestion. Constitutional: Denies: Chills, Fever, Night Sweats ENT: Denies: Head Aches, Ear Pain, Dysphagia Skin: Denies: Rash, Lesions, Breakdown Pulmonary: Reports: Cough; Denies: Dyspnea Cardiovascular: Reports: Orthopnea; Denies: Chest Pain, Palpitations, Paroxysmal Noc. Dyspnea, Edema, Lt Headedness Gastrointestinal: Reports: Nausea, Abdominal Pain, Constipation; Denies: Vomiting, Diarrhea Objective Physical Examination General Exam: Positive: Alert, Cooperative, No Acute Distress ENT Exam: Positive: Mucous membr. moist/pink Chest Exam: Positive: Diminished, Other (tachypnea) Heart Exam: Positive: Rate Normal, Normal S1, Normal S2 Abdomen Exam: Positive: BS Hyperactive, Tenderness (mildly diffusely tender, mild distention) Extremity Exam: Negative: Edema Neuro Exam: Positive: Normal Speech Psych Exam: Positive: Mental status NL, Mood NL Assessment /Plan Problems (1) SBO (small bowel obstruction) Status: Acute Response to Treatment: Stable Discussed With: Nurse, Patient Problem Specific Plan: Monitor Clinically Problem Text: 01/18/19: Continue with NGT and recommendations per surgery. 01/17/19 CT AP: [facility] NAME: DYLLAN GILLETTE DATE OF : 1955 AGE: 63 SEX: F REPORT #: [id number] ROOM: [facility] TECHNOLOGIST: [facility] DOCTOR: MARC BHAKTA DO Ordered for Date&Time: 01/17/19 0959 cc: [~ rep ct ivnm] Service Date&Time: 01/17/19 1050 This report is in Signed status. If this report is in a DRAFT status it has not yet been reviewed by the radiologist for accuracy. Thank you for having your radiology procedures performed at [facility] RADIOLOGY REPORT Date&Time printed: [~ rep prt dt last] [~ rep prt tm last] Page 2 of [address] [id number] RADIOLOGY REPORT This report is in Signed status. If this report is in a DRAFT status it has not yet been reviewed by the radiologist for accuracy. Thank you for having your radiology procedures performed at [facility] RADIOLOGY REPORT Date&Time printed: [~ rep prt dt last] [~ rep prt tm last] Page 1 of 1 Impression: 1. Pattern of small bowel obstruction with dilated small bowel loops from proximal to distal and collapsed colon. Some air-fluid levels in dilated loops of up to 3.2 cm diameter loops visible. Some mild edema in the mesentery. No perforation or free air or generalized ascites. 2. Colon collapsed. There is diverticulosis left colon and sigmoid without diverticulitis. 3. Status post cholecystectomy of postcholecystectomy changes, stable. 4. New small right pleural effusion, dense consolidation posterior medial basal segments of the right lower lobe suggesting acute infiltrate or aspiration pneumonitis. Advanced emphysematous changes in the lungs. ADDENDUM at the time of signature: A few hours after completion of the exam, I spoke to the attending surgeon about these findings. Electronically Signed by Castro Walker MD 01/18/2019 08:47 A DD: Castro Walker MD 01/17/19 1141 DT: SONAL 01/18/19 0801 DS: VY 01/18/19 0847 01/18/19 0847 [~ rep ct labl] 01/15/19: KUB this morning, results pending. Patient is consuming clear liquids. No further vomiting this morning. She is having BMs, some loose, some firm. GI panel negative. BC negative after [address] BHAKTA WHO RECOMMENDS THAT WE PROCEED WITH TREATING HER SBO, NG, TO DECOMPRESS. (2) HTN (hypertension) Status: Chronic Response to Treatment: Stable Problem Specific Plan: Monitor Clinically (3) Anemia Status: Acute Response to Treatment: Stable Problem Text: 01/18 hgb down 9.1, plt 64K-LMWH held (4) Pneumonia Problem Text: D2 RD levo c SM 20 BID c baseline severe COPD favor aspiration (5) Adenocarcinoma of lung Status: Chronic (6) PALLAVI (acute kidney injury) Status: Acute Response to Treatment: Improving Problem Text: close to baseline ~0.6 c IVF Plan/VTE VTE Prophylaxis Ordered?: Yes (Lovenox) VS, I&O, 24H, Fishbone Vital Signs/I&O Vital Signs Date Time Temp Pulse Resp B/P (MAP) Pulse Ox O2 Delivery O2 Flow Rate FiO2 01/18/19 06:00 97.9 99 15 123/99 (107) 91 01/17/19 21:00 3.0 01/12/19 04:04 Nasal Cannula I&O- Last 24 Hours up to 6 AM 01/18/19 06:00 Intake Total 4155 ml Output Total 4125 ml Balance 30 ml Laboratory Data 24H LABS Laboratory Tests 2 01/17/19 10:11: Lactic Acid Level 1.1 01/18/19 06:10: Anion Gap 8, Glomerular Filtration Rate > 60.0, Blood Urea Nitrogen 21H, Creatinine 0.76#, Sodium Level 144, Potassium Level 4.6, Chloride Level 113H, Carbon Dioxide Level 23, Calcium Level 8.3L, Aspartate Amino Transf (AST/SGOT) 21, Alanine Aminotransferase (ALT/SGPT) 37, Alkaline Phosphatase 107, Total Bilirubin 0.2, Total Protein 5.4L, Albumin 2.2L, Albumin/Globulin Ratio 0.69L 01/18/19 08:02: Nucleated Red Blood Cells % (auto) 0.0, Neutrophils 98H, Lymphocytes (Manual) 1 L, Monocytes (Manual) 1, Platelet Estimate DECREASED, Immature Platelet Fraction 3.6, Red Blood Cell Morphology NORMAL CBC/BMP Laboratory Tests 01/18/19 06:10 Calcium Level 8.3 L, Aspartate Amino Transf (AST/SGOT) 21, Alanine Aminotransferase (ALT/SGPT) 37, Alkaline Phosphatase 107, Total Bilirubin 0.2, Total Protein 5.4 L, Albumin 2.2 L 01/18/19 08:02 Red Blood Count 2.92 L, Mean Corpuscular Volume 98.3 H, Mean Corpuscular Hemoglobin 31.2, Mean Corpuscular Hemoglobin Concent 31.7 L, Red Cell Distribution Width 15.4 H Microbiology Microbiology 01/12/19 Blood Culture - Final, Complete NO GROWTH AFTER 5 DAYS 01/11/19 Blood Culture - Final, Complete NO GROWTH AFTER 5 DAYS 01/13/19 Gastrointestinal Tract Panel (PCR) - Final, Complete Alta MohamudP Jan 18, 2019 09:16 Farzad Ireland M.D. Jan 18, 2019 17:11
[2019-01-18] MEDS: PANTOPRAZOLE 40MG INJ (PROTONIX) (C9113) IV SCH ×2 (09:25→21:11)
[2019-01-18] MEDS: ENOXAPARIN 40 MG/0.4 ML SYRINGE (J1650) SC SCH (10:07)
[2019-01-18 14:00] VITALS: BP 117/60
[2019-01-18] MEDS: CEPACOL LOZENGE PO PRN ×2 (16:42→21:12)
[2019-01-18 18:00] VITALS: BP 119/67
[2019-01-18 22:00] VITALS: BP 135/67
[2019-01-19] MEDS: METOCLOPRAMIDE INJ 10MG/2ML VIAL (J2765) IV SCH ×5 (00:33→23:31)
[2019-01-19] MEDS: IPRATROPIUM 0.5MG/ALBUTEROL 2.5MG INH SOL UD 3ML (DUONEB)(J7620) NEB SCH ×4 (02:00→19:51)
[2019-01-19] MEDS: CEPACOL LOZENGE PO PRN ×4 (04:04→19:14)
[2019-01-19] MEDS: MORPHINE 4 MG/ML 1ML VIAL/SYRINGE (J2270) IV PRN ×3 (04:05→20:19)
[2019-01-19] MEDS: methylPREDNISolone INJ 40 MG/1 ML VIAL (J2920) IV SCH ×2 (05:48→17:22)
[2019-01-19 05:51] LABS: HEMATOCRIT 26.3 % (36.0-47.0); HEMOGLOBIN 8.7 g/dl (12.0-15.5); MEAN CORPUSCULAR HEMOGLOBIN 31.8 pg (27.0-33.0); MEAN CORPUSCULAR HGB CONC 33.1 g/dl (32.0-36.5); RED BLOOD COUNT 2.74 10^6/uL (4.00-5.40); WHITE BLOOD COUNT 24.4 10^3/uL (4.0-10.0)
[2019-01-19 06:00] VITALS: BP 135/71
[2019-01-19 06:17] LABS: ALBUMIN 2.2 GM/DL (3.2-5.2); ALT/SGPT 29 U/L (12-78); BILIRUBIN,TOTAL 0.3 MG/DL (0.2-1.0); BLOOD UREA NITROGEN 12 MG/DL (7-18); CALCIUM LEVEL 8.2 MG/DL (8.8-10.2); CARBON DIOXIDE LEVEL 24 MEQ/L (21-32); CHLORIDE LEVEL 109 MEQ/L (98-107); CREATININE FOR GFR 0.52 MG/DL (0.55-1.30); GLOMERULAR FILTRATION RATE > 60.0 (>45); GLUCOSE, FASTING 87 MG/DL (70-100); SODIUM LEVEL 145 MEQ/L (136-145); TOTAL PROTEIN 5.4 GM/DL (6.4-8.2)
[2019-01-19 06:18] LABS: PLATELET COUNT, AUTOMATED 59 10^3/uL (150-450)
[2019-01-19 06:21] LABS: LYMPHOCYTES 2 % (16-52); MONOCYTES 1 % (0-8); NEUTROPHILS 97 % (35-75); PLATELET ESTIMATE MARKED DECREASE (NORMAL)
--- NOTE | 2019-01-19 06:29 | IPN ---
DATE OF VISIT: 01/18/2019 Mrs. Crain was seen yesterday for acute renal failure. She was felt to have a distended urinary bladder with retention. A Ohara catheter was placed after she voided only about 25 mL of urine and 250 mL of urine was drained. She is receiving IV fluid due to small bowel obstruction. Her urine output was good and kidney function has improved. She continues to have dyspnea and a cough. Her abdominal pain is controlled but denies any bowel movement so far. She remains with nasogastric tube hooked to suctioning. PHYSICAL EXAMINATION: Vital signs: Temperature 97.9 degrees Fahrenheit, heart rate 99 per minute and respiratory rate 18 per minute. Blood pressure 123/99 mmHg and oxygen saturation 91%. HEENT: Head is atraumatic. Neck: Neck veins are moderately distended. She has no oral thrush or ulcers. Heart: Sounds are tachycardiac. Lungs: Scattered rhonchi and mild wheezing. Abdomen: Soft with mild tenderness in lower abdomen and no bowel sounds. Extremities: Have no cyanosis or clubbing. Neurologically: She is at her baseline mentation. LABORATORY DATA: Today's labs show WBC count 25.3, hemoglobin 9.1 and hematocrit 28.7. Platelets 64,000. Sodium 144, potassium 4.6, CO2 23, BUN 21 and creatinine 0.76. Glucose 68 and calcium 8.3. PROBLEMS: 1. Acute renal failure most likely a combination of obstructive uropathy and prerenal azotemia. She is receiving intravenous (IV) fluid with Ohara catheter placement. Her kidney function improved dramatically. At present will leave the catheter in as the patient is still sick and has small bowel obstruction. 2. Pleural effusion and hypervolemia. She seems to have distended neck veins and pleural effusions on her recent imaging. I am cutting down her IV fluid to 75 mL per hour to prevent worsening hypervolemia. She still does not have oral intake due to small bowel obstruction and she is in need for continued IV fluids. 3. Hyperkalemia. Her potassium was 5.3 yesterday which improved with good urine output. No other intervention is needed. 4. Anemia. Her anemia did get worse with hemodilution. No urgent transfusion indicated.
[2019-01-19] MEDS: ANORO ELLIPTA INH SCH (07:31)
[2019-01-19] MEDS: ARNUITY ELLIPTA 200 MCG INH SCH (07:32)
[2019-01-19] MEDS: PANTOPRAZOLE 40MG INJ (PROTONIX) (C9113) IV SCH ×2 (08:44→20:19)
--- NOTE | 2019-01-19 09:03 | IPNPDOC ---
Text Note Date of Service The patient was seen on 01/17/19. NOTE Tolerating the NGT to suction with large output. Abd pains are not improved, and she is starting to develop a cough as well. Labs got much worse overnight. VSSAF, tachy NAD abd - soft, less distended, TTP diffuse, no rebound labs - below A) 63y/o female with n/v/d that all started 48 hours after chemo for lung cancer. Ileus vs. partial SBO leukocytosis ARF P) NGT to LIS ambulate as much as possible ice and water repeat CT abd monitor labs fluid bolus monitor for 48-72 hours, and then consider diagnostic laparoscopy if symptoms do not improve. Lakhwinder Mcarthur DO VS,Lenorae, I+O VS, Lenorae, I+O Laboratory Tests 01/19/19 05:37 Red Blood Count 2.74 L, Mean Corpuscular Volume 96.0, Mean Corpuscular Hemoglobin 31.8, Mean Corpuscular Hemoglobin Concent 33.1, Red Cell Distribution Width 15.5 H, Calcium Level 8.2 L, Aspartate Amino Transf (AST/SGOT) 18, Alanine Aminotransferase (ALT/SGPT) 29, Alkaline Phosphatase 111, Total Bilirubin 0.3, Total Protein 5.4 L, Albumin 2.2 L Vital Signs Date Time Temp Pulse Resp B/P (MAP) Pulse Ox O2 Delivery O2 Flow Rate FiO2 01/19/19 06:00 96.1 99 19 135/71 (92) 91 4.0 I&O- Last 24 Hours up to 6 AM 01/19/19 06:00 Intake Total 3715 ml Output Total 4150 ml Balance -435 ml MARC MCARTHUR DO Jan 19, 2019 09:03
--- NOTE | 2019-01-19 09:04 | IPNPDOC ---
Text Note Date of Service The patient was seen on 01/18/19. NOTE No acute events overnight. NG output is still high, abd pain is much improved. She is having pain in her chest from coughing so much now. VSSAF NAD abd - soft, less distended, TTP improved, no rebound labs - below A) 63y/o female with n/v/d that all started 48 hours after chemo for lung cancer. Ileus vs. partial SBO leukocytosis aspiration pneumonia P) NGT to LIS ambulate as much as possible ice and water abx monitor for another 48 hours, and then consider diagnostic laparoscopy if symptoms do not improve. Lakhwinder Mcarthur DO VS,Fishbone, I+O VS, Fishbone, I+O Laboratory Tests 01/19/19 05:37 Red Blood Count 2.74 L, Mean Corpuscular Volume 96.0, Mean Corpuscular Hemoglobin 31.8, Mean Corpuscular Hemoglobin Concent 33.1, Red Cell Distribution Width 15.5 H, Calcium Level 8.2 L, Aspartate Amino Transf (AST/SGOT) 18, Alanine Aminotransferase (ALT/SGPT) 29, Alkaline Phosphatase 111, Total Bilirubin 0.3, Total Protein 5.4 L, Albumin 2.2 L Vital Signs Date Time Temp Pulse Resp B/P (MAP) Pulse Ox O2 Delivery O2 Flow Rate FiO2 01/19/19 06:00 96.1 99 19 135/71 (92) 91 4.0 I&O- Last 24 Hours up to 6 AM 01/19/19 06:00 Intake Total 3715 ml Output Total 4150 ml Balance -435 ml MARC MCARTHUR DO Jan 19, 2019 09:04
--- NOTE | 2019-01-19 09:06 | IPNPDOC ---
Text Note Date of Service The patient was seen on 01/19/19. NOTE No acute events overnight. NG output is still high, abd pain is gone. She is passing lots of flatus, but no BM. VSSAF NAD abd - soft, less distended, TTP improved, no rebound labs - below A) 63y/o female with n/v/d that all started 48 hours after chemo for lung cancer. Ileus vs. partial SBO leukocytosis improving slowly aspiration pneumonia P) NGT to LIS ambulate as much as possible ice and water abx abd xray I will review xray, and if it still shows an obstruction I will give her one more day and then we will have to discuss surgery. Lakhwinder Mcarthur DO VS,Saige, I+O VS, Saige, I+O Laboratory Tests 01/19/19 05:37 Red Blood Count 2.74 L, Mean Corpuscular Volume 96.0, Mean Corpuscular Hemoglobin 31.8, Mean Corpuscular Hemoglobin Concent 33.1, Red Cell Distribution Width 15.5 H, Calcium Level 8.2 L, Aspartate Amino Transf (AST/SGOT) 18, Alanine Aminotransferase (ALT/SGPT) 29, Alkaline Phosphatase 111, Total Bilirubin 0.3, Total Protein 5.4 L, Albumin 2.2 L Vital Signs Date Time Temp Pulse Resp B/P (MAP) Pulse Ox O2 Delivery O2 Flow Rate FiO2 01/19/19 06:00 96.1 99 19 135/71 (92) 91 4.0 I&O- Last 24 Hours up to 6 AM 01/19/19 06:00 Intake Total 3715 ml Output Total 4150 ml Balance -435 ml MARC MCARTHUR DO Jan 19, 2019 09:06
[2019-01-19] MEDS: ONDANSETRON 4MG/2ML VIAL (J2405) IV PRN (10:59)
[2019-01-19] MEDS: NS 1,000 ML IV SCH (11:21)
[2019-01-19] MEDS: LevoFLOXacin IV 250 MG in APPROPRIATE DILUENT 1 EA IV SCH (12:21)
--- NOTE | 2019-01-19 12:36 | REP ---
Supine upright abdomen: A comparison is 01/15/2019. There are multiple surgical clips in the abdomen on the right, unchanged. There is a air in the stomach and a few nondistended small bowel loops in the mid abdomen. There is minimal air in the colon. There is no bowel distension or obstruction. There are no air-fluid levels on the upright view. There is a nasogastric tube with the tip terminating in satisfactory position in the abdomen on the left. There is scoliosis convex right at the thoracolumbar junction, unchanged. Impression: Normal bowel gas pattern. Surgical clips, unchanged. NG tube as described. Electronically Signed by Jamie Toscano MD 01/19/2019 12:28 P
--- NOTE | 2019-01-19 12:46 | IPNPDOC ---
Subjective Date Seen The patient was seen on 01/19/19. Subjective Chief Complaint/HPI NG tube continues to produce copius drainage. No BM, but passing some flatus. Less abd pain and les distension Coughing brownish sputum. Some SOB unchanged. Constitutional: Denies: Chills, Fever Pulmonary: Reports: Dyspnea (mild ), Cough Cardiovascular: Denies: Chest Pain, Palpitations Gastrointestinal: Reports: Abdominal Pain (improved), Constipation; Denies: Nausea, Vomiting, Diarrhea Objective Physical Examination General Exam: Positive: Alert, Cooperative, No Acute Distress ENT Exam: Positive: Mucous membr. moist/pink Chest Exam: Negative: Rales, Rhonchi, Wheezing Heart Exam: Positive: Rate Normal, Regular Rhythm, Normal S1, Normal S2 Abdomen Exam: Positive: BS Hyperactive, Tenderness (slight tenderenss p eriumbilical region witout guard or rebound or significant distension) Extremity Exam: Negative: Edema Neuro Exam: Positive: Normal Speech Psych Exam: Positive: Mental status NL, Mood NL Assessment /Plan Problems (1) Pneumonia Problem Text: Aspiration Pneumonia - COnt Levaquin & Solumedrol cont oxygen - still borderline hypoxemia - sats around 90% Encourage IS Add Mucinex c baseline severe COPD favor aspiration (2) Thrombocytopenia Status: Acute Problem Text: Dropping further - down to 59 Lovenox held yesterday Monitor trend off heparin (3) Anemia Status: Acute Response to Treatment: Stable Problem Text: 01/18 hgb down 9.1, plt 64K-LMWH held (4) SBO (small bowel obstruction) Status: Acute Response to Treatment: Stable Discussed With: Nurse, Patient Problem Specific Plan: Monitor Clinically Problem Text: 01/19 - NGT per surgery KUB pending May need surgery 01/18/19: Continue with NGT and recommendations per surgery. 01/17/19 CT AP: [facility] NAME: DYLLAN GILLETTE DATE OF : 1955 AGE: 63 SEX: F REPORT #: [id number] ROOM: [facility] TECHNOLOGIST: [id number] DOCTOR: MARC BHAKTA DO Ordered for Date&Time: 01/17/19 0959 cc: [~ rep ct ivnm] Service Date&Time: 01/17/19 1050 This report is in Signed status. If this report is in a DRAFT status it has not yet been reviewed by the radiologist for accuracy. Thank you for having your radiology procedures performed at [facility] RADIOLOGY REPORT Date&Time printed: [~ rep prt dt last] [~ rep prt tm last] Page [address] of [address] [id number] RADIOLOGY REPORT This report is in Signed status. If this report is in a DRAFT status it has not yet been reviewed by the radiologist for accuracy. Thank you for having your radiology procedures performed at [facility] RADIOLOGY REPORT Date&Time printed: [~ rep prt dt last] [~ rep prt tm last] Page 1 of 1 Impression: 1. Pattern of small bowel obstruction with dilated small bowel loops from proximal to distal and collapsed colon. Some air-fluid levels in dilated loops of up to 3.2 cm diameter loops visible. Some mild edema in the mesentery. No perforation or free air or generalized ascites. 2. Colon collapsed. There is diverticulosis left colon and sigmoid without diverticulitis. 3. Status post cholecystectomy of postcholecystectomy changes, stable. 4. New small right pleural effusion, dense consolidation posterior medial basal segments of the right lower lobe suggesting acute infiltrate or aspiration pneumonitis. Advanced emphysematous changes in the lungs. ADDENDUM at the time of signature: A few hours after completion of the exam, I spoke to the attending surgeon about these findings. Electronically Signed by Castro Walker MD 01/18/2019 08:47 A DD: Castro Walker MD 01/17/19 1141 [id number] DS: VY 01/18/19 0847 01/18/19 0847 [~ rep ct labl] 01/15/19: KUB this morning, results pending. Patient is consuming clear liquids. No further vomiting this morning. She is having BMs, some loose, some firm. GI panel negative. BC negative after [address] BHAKTA WHO RECOMMENDS THAT WE PROCEED WITH TREATING HER SBO, NG, TO DECOMPRESS. (5) HTN (hypertension) Status: Chronic Response to Treatment: Stable Problem Specific Plan: Monitor Clinically (6) Adenocarcinoma of lung Status: Chronic (7) PALLAVI (acute kidney injury) Status: Resolved Response to Treatment: Improving Problem Text: close to baseline ~0.6 c IVF Plan/VTE VTE Prophylaxis Ordered?: Yes (Lovenox) VS, I&O, 24H, Fishbone Vital Signs/I&O Vital Signs Date Time Temp Pulse Resp B/P (MAP) Pulse Ox O2 Delivery O2 Flow Rate FiO2 01/19/19 10:55 18 01/19/19 06:00 96.1 99 135/71 (92) 91 4.0 I&O- Last 24 Hours up to 6 AM 01/19/19 06:00 Intake Total 3715 ml Output Total 4150 ml Balance -435 ml Laboratory Data 24H LABS Laboratory Tests 2 01/19/19 05:37: Immature Granulocyte % (Auto) , Nucleated Red Blood Cells % (auto) 0.0, Neutrophils 97H, Lymphocytes (Manual) 2L, Monocytes (Manual) 1, Platelet Estimate MARKED DECREASE, Red Blood Cell Morphology NORMAL, Anion Gap 12, Glomerular Filtration Rate > 60.0, Blood Urea Nitrogen 12, Creatinine 0.52L, Sodium Level 145, Potassium Level 4.0, Chloride Level 109H, Carbon Dioxide Level 24, Calcium Level 8.2L, Aspartate Amino Transf (AST/SGOT) 18, Alanine Aminotransferase (ALT/SGPT) 29, Alkaline Phosphatase 111, Total Bilirubin 0.3, Total Protein 5.4L, Albumin 2.2L, Albumin/Globulin Ratio 0.69L CBC/BMP Laboratory Tests 01/19/19 05:37 Red Blood Count 2.74 L, Mean Corpuscular Volume 96.0, Mean Corpuscular Hemoglobin 31.8, Mean Corpuscular Hemoglobin Concent 33.1, Red Cell Distribution Width 15.5 H, Calcium Level 8.2 L, Aspartate Amino Transf (AST/SGOT) 18, Alanine Aminotransferase (ALT/SGPT) 29, Alkaline Phosphatase 111, Total Bilirubin 0.3, Total Protein 5.4 L, Albumin 2.2 L Microbiology Microbiology 01/12/19 Blood Culture - Final, Complete NO GROWTH AFTER 5 DAYS 01/11/19 Blood Culture - Final, Complete NO GROWTH AFTER 5 DAYS 01/13/19 Gastrointestinal Tract Panel (PCR) - Final, Complete EDIE BAILEY PA-C Jan 19, 2019 12:46
[2019-01-19 19:37] VITALS: BP 142/70
--- NOTE | 2019-01-19 19:44 | IPN ---
DATE: 01/19/2019 Mrs. Crain was seen for acute renal failure. She had a Ohara catheter placed due to urinary retention. She is receiving IV fluid due to small bowel obstruction. Her kidney function has improved over the last couple of days and today her creatinine is down to 0.5 which is her baseline. She does not have any metabolic acidosis or electrolyte abnormalities at this point. I am signing off her case. Please do not hesitate to call me should you need any further assistance.
[2019-01-19] MEDS: guaiFENesin ER 600 MG TAB PO SCH (20:20)
[2019-01-19] MEDS ORDERED: guaiFENesin ER 600 MG TAB PO SCH (21:00)
[2019-01-19 22:00] VITALS: BP 157/89
[2019-01-20] MEDS: NS 1,000 ML IV SCH ×2 (01:57→15:50)
[2019-01-20] MEDS: IPRATROPIUM 0.5MG/ALBUTEROL 2.5MG INH SOL UD 3ML (DUONEB)(J7620) NEB SCH ×4 (02:00→20:09)
[2019-01-20] MEDS: MORPHINE 4 MG/ML 1ML VIAL/SYRINGE (J2270) IV PRN ×3 (02:01→20:32)
[2019-01-20] MEDS: methylPREDNISolone INJ 40 MG/1 ML VIAL (J2920) IV SCH ×2 (05:12→18:33)
[2019-01-20] MEDS: METOCLOPRAMIDE INJ 10MG/2ML VIAL (J2765) IV SCH ×3 (05:12→18:33)
[2019-01-20] MEDS: CEPACOL LOZENGE PO PRN (05:36)
[2019-01-20 06:00] VITALS: BP 139/72
[2019-01-20] MEDS: ANORO ELLIPTA INH SCH (07:09)
[2019-01-20] MEDS: ARNUITY ELLIPTA 200 MCG INH SCH (07:09)
[2019-01-20] MEDS ORDERED: E-Z-PAQUE 96% w/w SUSP 176GM BTL As Ordered ONE (08:43)
[2019-01-20] MEDS: guaiFENesin ER 600 MG TAB PO SCH ×3 (09:00→20:31)
[2019-01-20] MEDS: PANTOPRAZOLE 40MG INJ (PROTONIX) (C9113) IV SCH ×2 (11:56→20:31)
[2019-01-20 12:03] LABS: HEMATOCRIT 30.5 % (36.0-47.0); MEAN CORPUSCULAR HEMOGLOBIN 31.7 pg (27.0-33.0); MEAN CORPUSCULAR HGB CONC 32.8 g/dl (32.0-36.5); MEAN CORPUSCULAR VOLUME 96.8 fl (80.0-96.0); RED BLOOD COUNT 3.15 10^6/uL (4.00-5.40); WHITE BLOOD COUNT 26.3 10^3/uL (4.0-10.0)
[2019-01-20 12:07] LABS: PLATELET COUNT, AUTOMATED 89 10^3/uL (150-450)
[2019-01-20 12:29] LABS: ALBUMIN 2.5 GM/DL (3.2-5.2); ALT/SGPT 32 U/L (12-78); BILIRUBIN,TOTAL 0.4 MG/DL (0.2-1.0); BLOOD UREA NITROGEN 12 MG/DL (7-18); CARBON DIOXIDE LEVEL 24 MEQ/L (21-32); CHLORIDE LEVEL 107 MEQ/L (98-107); CREATININE FOR GFR 0.47 MG/DL (0.55-1.30); GLOMERULAR FILTRATION RATE > 60.0 (>45); GLUCOSE, FASTING 97 MG/DL (70-100); POTASSIUM SERUM 3.7 MEQ/L (3.5-5.1); SODIUM LEVEL 144 MEQ/L (136-145); TOTAL PROTEIN 5.6 GM/DL (6.4-8.2)
[2019-01-20 14:00] VITALS: BP 136/71
[2019-01-20] MEDS: ONDANSETRON 4MG/2ML VIAL (J2405) IV PRN (20:31)
[2019-01-20 22:00] VITALS: BP 123/68
[2019-01-21] MEDS: METOCLOPRAMIDE INJ 10MG/2ML VIAL (J2765) IV SCH ×4 (00:54→17:55)
[2019-01-21] MEDS: MORPHINE 4 MG/ML 1ML VIAL/SYRINGE (J2270) IV PRN ×4 (00:55→21:45)
[2019-01-21] MEDS: IPRATROPIUM 0.5MG/ALBUTEROL 2.5MG INH SOL UD 3ML (DUONEB)(J7620) NEB SCH ×4 (01:37→21:31)
[2019-01-21 06:00] VITALS: BP 114/56
[2019-01-21 06:28] LABS: HEMATOCRIT 28.7 % (36.0-47.0); HEMOGLOBIN 9.1 g/dl (12.0-15.5); MEAN CORPUSCULAR HEMOGLOBIN 30.2 pg (27.0-33.0); MEAN CORPUSCULAR HGB CONC 31.7 g/dl (32.0-36.5); MEAN CORPUSCULAR VOLUME 95.3 fl (80.0-96.0); PLATELET COUNT, AUTOMATED 117 10^3/uL (150-450); RED BLOOD COUNT 3.01 10^6/uL (4.00-5.40); WHITE BLOOD COUNT 20.4 10^3/uL (4.0-10.0)
[2019-01-21] MEDS: NS 1,000 ML IV SCH ×2 (06:32→18:12)
[2019-01-21] MEDS: methylPREDNISolone INJ 40 MG/1 ML VIAL (J2920) IV SCH ×2 (06:32→17:55)
[2019-01-21 06:46] LABS: ALBUMIN 2.2 GM/DL (3.2-5.2); ALT/SGPT 30 U/L (12-78); BILIRUBIN,TOTAL 0.3 MG/DL (0.2-1.0); BLOOD UREA NITROGEN 11 MG/DL (7-18); CALCIUM LEVEL 7.7 MG/DL (8.8-10.2); CARBON DIOXIDE LEVEL 26 MEQ/L (21-32); CHLORIDE LEVEL 109 MEQ/L (98-107); CREATININE FOR GFR 0.41 MG/DL (0.55-1.30); GLOMERULAR FILTRATION RATE > 60.0 (>45); GLUCOSE, FASTING 85 MG/DL (70-100); POTASSIUM SERUM 3.3 MEQ/L (3.5-5.1); SODIUM LEVEL 145 MEQ/L (136-145); TOTAL PROTEIN 5.4 GM/DL (6.4-8.2)
[2019-01-21] MEDS: ANORO ELLIPTA INH SCH (07:41)
[2019-01-21] MEDS: ARNUITY ELLIPTA 200 MCG INH SCH (07:41)
[2019-01-21] MEDS: guaiFENesin ER 600 MG TAB PO SCH ×3 (08:50→20:27)
[2019-01-21] MEDS: PANTOPRAZOLE 40MG INJ (PROTONIX) (C9113) IV SCH ×2 (08:51→20:29)
--- NOTE | 2019-01-21 10:11 | IPNPDOC ---
Subjective Date Seen The patient was seen on 01/21/19. Subjective Chief Complaint/HPI Feels well. NG tube still in place. No abd pain or nausea. Passing soft stool Constitutional: Denies: Chills, Fever Pulmonary: Denies: Dyspnea, Cough Cardiovascular: Denies: Chest Pain, Palpitations Gastrointestinal: Reports: Diarrhea (soft); Denies: Nausea, Vomiting, Abdominal Pain Objective Physical Examination General Exam: Positive: Alert, Cooperative, No Acute Distress ENT Exam: Positive: Mucous membr. moist/pink Chest Exam: Negative: Rales, Rhonchi, Wheezing Heart Exam: Positive: Rate Normal, Regular Rhythm, Normal S1, Normal S2 Abdomen Exam: Positive: BS Hyperactive; Negative: Tenderness Extremity Exam: Negative: Edema Neuro Exam: Positive: Normal Speech Psych Exam: Positive: Mental status NL, Mood NL Assessment /Plan Problems (1) SBO (small bowel obstruction) Status: Acute Response to Treatment: Stable Discussed With: Nurse, Patient Problem Specific Plan: Monitor Clinically Problem Text: 01/21 - SBFT pending - Dr. Mcarthur reviewing this and will determine if NG can come out vs taking her to OR 01/19 - NGT per surgery KUB pending May need surgery 01/18/19: Continue with NGT and recommendations per surgery. 01/17/19 CT AP: [facility] NAME: DYLLAN GILLETTE DATE OF : 1955 AGE: 63 SEX: F REPORT #: [id number] ROOM: [facility] TECHNOLOGIST: [facility] DOCTOR: MARC MCARTHUR DO Ordered for Date&Time: 01/17/19 0959 cc: [~ rep ct ivnm] Service Date&Time: 01/17/19 1050 This report is in Signed status. If this report is in a DRAFT status it has not yet been reviewed by the radiologist for accuracy. Thank you for having your radiology procedures performed at [facility] RADIOLOGY REPORT Date&Time printed: [~ rep prt dt last] [~ rep prt tm last] Page 2 of [address] [address] RADIOLOGY REPORT This report is in Signed status. If this report is in a DRAFT status it has not yet been reviewed by the radiologist for accuracy. Thank you for having your radiology procedures performed at [facility] RADIOLOGY REPORT Date&Time printed: [~ rep prt dt last] [~ rep prt tm last] Page 1 of 1 Impression: 1. Pattern of small bowel obstruction with dilated small bowel loops from proximal to distal and collapsed colon. Some air-fluid levels in dilated loops of up to 3.2 cm diameter loops visible. Some mild edema in the mesentery. No perforation or free air or generalized ascites. 2. Colon collapsed. There is diverticulosis left colon and sigmoid without diverticulitis. 3. Status post cholecystectomy of postcholecystectomy changes, stable. 4. New small right pleural effusion, dense consolidation posterior medial basal segments of the right lower lobe suggesting acute infiltrate or aspiration pneumonitis. Advanced emphysematous changes in the lungs. ADDENDUM at the time of signature: A few hours after completion of the exam, I spoke to the attending surgeon about these findings. Electronically Signed by Castro Walker MD 01/18/2019 08:47 A DD: Castro Walker MD 01/17/19 1141 0801 DS: VY 01/18/19 0847 01/18/19 0847 [~ rep ct labl] 01/15/19: KUB this morning, results pending. Patient is consuming clear liquids. No further vomiting this morning. She is having BMs, some loose, some firm. GI panel negative. BC negative after [address] MCARTHUR WHO RECOMMENDS THAT WE PROCEED WITH TREATING HER SBO, NG, TO DECOMPRESS. (2) Pneumonia Problem Text: Aspiration Pneumonia - COnt Levaquin & Solumedrol - change to po once NG tube out cont oxygen Encourage IS Add Mucinex c baseline severe COPD favor aspiration (3) Thrombocytopenia Status: Acute Response to Treatment: Improving Problem Text: 01/21 - Platelets up to 118 Dropping further - down to 59 Lovenox held yesterday Monitor trend off heparin (4) Anemia Status: Acute Response to Treatment: Stable Problem Text: 01/21 - stable 01/18 hgb down 9.1, plt 64K-LMWH held (5) HTN (hypertension) Status: Chronic Response to Treatment: Stable Problem Specific Plan: Monitor Clinically (6) Adenocarcinoma of lung Status: Chronic (7) PALLAVI (acute kidney injury) Status: Resolved Response to Treatment: Improving Problem Text: close to baseline ~0.6 c IVF Plan/VTE VTE Prophylaxis Ordered?: Yes (Lovenox) VS, I&O, [facility] Vital Signs/I&O Vital Signs Date Time Temp Pulse Resp B/P (MAP) Pulse Ox O2 Delivery O2 Flow Rate FiO2 01/21/19 06:00 97.5 100 16 114/56 (75) 92 3.0 I&O- Last 24 Hours up to 6 AM 01/21/19 06:00 Intake Total 1950 ml Output Total 1925 ml Balance 25 ml Laboratory Data 24H LABS Laboratory Tests 2 01/20/19 11:51: Nucleated Red Blood Cells % (auto) 0.0, Immature Platelet Fraction 4.3, Anion Gap 13, Glomerular Filtration Rate > 60.0, Blood Urea Nitrogen 12, Creatinine 0.47L, Sodium Level 144, Potassium Level 3.7, Chloride Level 107, Carbon Dioxide Level 24, Calcium Level 8.0L, Aspartate Amino Transf (AST/SGOT) 21, Alanine Aminotransferase (ALT/SGPT) 32, Alkaline Phosphatase 124H, Total Bilirubin 0.4, Total Protein 5.6L, Albumin 2.5L, Albumin/Globulin Ratio 0.81L 01/21/19 06:11: Nucleated Red Blood Cells % (auto) 0.0, Anion Gap 10, Glomerular Filtration Rate > 60.0, Blood Urea Nitrogen 11, Creatinine 0.41L, Sodium Level 145, Potassium Level 3.3L, Chloride Level 109H, Carbon Dioxide Level 26, Calcium Level 7.7L, Aspartate Amino Transf (AST/SGOT) 19, Alanine Aminotransferase (ALT/SGPT) 30, Alkaline Phosphatase 102, Total Bilirubin 0.3, Total Protein 5.4L, Albumin 2.2L, Albumin/Globulin Ratio 0.69L CBC/BMP Laboratory Tests 01/20/19 11:51 Red Blood Count 3.15 L, Mean Corpuscular Volume 96.8 H, Mean Corpuscular Hemogl obin 31.7, Mean Corpuscular Hemoglobin Concent 32.8, Red Cell Distribution Width 15.4 H, Calcium Level 8.0 L, Aspartate Amino Transf (AST/SGOT) 21, Alanine Aminotransferase (ALT/SGPT) 32, Alkaline Phosphatase 124 H, Total Bilirubin 0.4, Total Protein 5.6 L, Albumin 2.5 L 01/21/19 06:11 Red Blood Count 3.01 L, Mean Corpuscular Volume 95.3, Mean Corpuscular Hemoglobin 30.2, Mean Corpuscular Hemoglobin Concent 31.7 L, Red Cell Distribution Width 15.3 H, Calcium Level 7.7 L, Aspartate Amino Transf (AST/SGOT) 19, Alanine Aminotransferase (ALT/SGPT) 30, Alkaline Phosphatase 102, Total Bilirubin 0.3, Total Protein 5.4 L, Albumin 2.2 L Microbiology Microbiology 01/12/19 Blood Culture - Final, Complete NO GROWTH AFTER 5 DAYS 01/11/19 Blood Culture - Final, Complete NO GROWTH AFTER 5 DAYS 01/13/19 Gastrointestinal Tract Panel (PCR) - Final, Complete EDIE BAILEY PA-C Jan 21, 2019 10:11
--- NOTE | 2019-01-21 10:24 | IPN ---
DATE: 01/20/2019 Hailee was seen after the first part of her upper GI/small bowel follow-through. They are getting ready to take her back down again. She denies much abdominal pain or any shortness of breath. She is coughing up some brownish sputum. Feels a little short of breath than yesterday. PHYSICAL EXAM: Vital signs: Per flow sheet. Alert, conversant. Lungs: Scattered rhonchi. Heart: Regular rhythm. Abdomen: Nondistended. Bowel sounds present. IMPRESSION: 1. Aspiration pneumonia. Continue Levaquin and Solu-Medrol. 2. Thrombocytopenia. Platelets have rebounded a bit. They are up to 89. 3. Small bowel obstruction surgery.
[2019-01-21 11:33] LABS: MAGNESIUM LEVEL 1.9 MG/DL (1.8-2.4)
--- NOTE | 2019-01-21 11:34 | IPNPDOC ---
Text Note Date of Service The patient was seen on 01/20/19. NOTE No acute events overnight. NG output is still high, but she is taking lots of PO intake as well. She is passing flatus, and has no abd pains. VSSAF NAD abd - soft, less distended, TTP improved, no rebound labs - below A) 63y/o female with n/v/d that all started 48 hours after chemo for lung cancer. Ileus vs. partial SBO leukocytosis improving slowly aspiration pneumonia P) NGT to LIS ambulate as much as possible ice and water abx SBFT will wait on SBFT to decide on surgery. Lakhwinder Mcarthur DO VS,Fishbone, I+O VS, Fishbone, I+O Laboratory Tests 01/20/19 11:51 Red Blood Count 3.15 L, Mean Corpuscular Volume 96.8 H, Mean Corpuscular Hemoglobin 31.7, Mean Corpuscular Hemoglobin Concent 32.8, Red Cell Distribution Width 15.4 H, Calcium Level 8.0 L, Aspartate Amino Transf (AST/SGOT) 21, Alanine Aminotransferase (ALT/SGPT) 32, Alkaline Phosphatase 124 H, Total Bilirubin 0.4, Total Protein 5.6 L, Albumin 2.5 L 01/21/19 06:11 Red Blood Count 3.01 L, Mean Corpuscular Volume 95.3, Mean Corpuscular Hemoglobin 30.2, Mean Corpuscular Hemoglobin Concent 31.7 L, Red Cell Distribution Width 15.3 H, Calcium Level 7.7 L, Aspartate Amino Transf (AST/SGOT) 19, Alanine Aminotransferase (ALT/SGPT) 30, Alkaline Phosphatase 102, Total Bilirubin 0.3, Total Protein 5.4 L, Albumin 2.2 L Vital Signs Date Time Temp Pulse Resp B/P (MAP) Pulse Ox O2 Delivery O2 Flow Rate FiO2 01/21/19 06:00 97.5 100 16 114/56 (75) 92 3.0 I&O- Last 24 Hours up to 6 AM 01/21/19 06:00 Intake Total 1950 ml Output Total 1925 ml Balance 25 ml MARC MCARTHUR DO Jan 21, 2019 11:34
--- NOTE | 2019-01-21 11:36 | IPNPDOC ---
Text Note Date of Service The patient was seen on 01/21/19. NOTE No acute events overnight. NG output is decreasing. No abd pains, and she had a large BM yesterday. No current complaints. She is still waiting on a few more images for the SBFT to be completed. VSSAF NAD abd - soft, less distended, TTP improved, no rebound labs - below SBFT - not completed, but there is contrast through the colon A) 63y/o female with n/v/d that all started 48 hours after chemo for lung cancer. Ileus vs. partial SBO leukocytosis improving slowly aspiration pneumonia P) clamp NGT clear liquid diet ambulate as much as possible abx SBFT result pending if she can tolerate diet and the SBFT is normal, then we will dc ngt in am Lakhwinder Mcarthur DO VS,Fishbone, I+O VS, Fishbone, I+O Laboratory Tests 01/20/19 11:51 Red Blood Count 3.15 L, Mean Corpuscular Volume 96.8 H, Mean Corpuscular Hemoglobin 31.7, Mean Corpuscular Hemoglobin Concent 32.8, Red Cell Distribution Width 15.4 H, Calcium Level 8.0 L, Aspartate Amino Transf (AST/SGOT) 21, Alanine Aminotransferase (ALT/SGPT) 32, Alkaline Phosphatase 124 H, Total Bilirubin 0.4, Total Protein 5.6 L, Albumin 2.5 L 01/21/19 06:11 Red Blood Count 3.01 L, Mean Corpuscular Volume 95.3, Mean Corpuscular Hemoglobin 30.2, Mean Corpuscular Hemoglobin Concent 31.7 L, Red Cell Distribution Width 15.3 H, Calcium Level 7.7 L, Aspartate Amino Transf (AST/SGOT) 19, Alanine Aminotransferase (ALT/SGPT) 30, Alkaline Phosphatase 102, Total Bilirubin 0.3, Total Protein 5.4 L, Albumin 2.2 L Vital Signs Date Time Temp Pulse Resp B/P (MAP) Pulse Ox O2 Delivery O2 Flow Rate FiO2 01/21/19 06:00 97.5 100 16 114/56 (75) 92 3.0 I&O- Last 24 Hours up to 6 AM 01/21/19 06:00 Intake Total 1950 ml Output Total 1925 ml Balance 25 ml MARC MCARTHUR DO Jan 21, 2019 11:36
[2019-01-21] MEDS: KCL 10MEQ/100ML SWI (KRUN) 10 MEQ in APPROPRIATE DILUENT 1 EA IV SCH ×4 (11:39→15:50)
[2019-01-21] MEDS: CEPACOL LOZENGE PO PRN (11:40)
[2019-01-21 14:00] VITALS: BP 127/59
--- NOTE | 2019-01-21 14:21 | REP ---
Examination Requested: SBFT Reason For Exam: Possible small bowel obstruction Small Bowel Follow Through The procedure was performed by ALHAJI Kyle, under the direct supervision of Dr. Toscano. The images were reviewed with Dr. Toscano. The supervisor shaving and splitting film shows no organomegaly or pathological masses. The intestinal gas pattern appears normal. The barium was administered via nasogastric tube and the barium column was followed to the the colon Small bowel transit time was approximately 10 hours. During fluoroscopy gentle palpation shows all loops are freely mobile and pliable. There are no fixed or angulated loops. The small bowel mucosal pattern is normal in course and caliber. There is no transition to suggest a partial small-bowel obstruction. There is no bowel distention. Impression: 1. Prolonged small bowel transit time to the colon. the colon, approximately 10 hours. 2. No evidence of a small bowel obstruction. 0.6 minutes of fluoroscopy time was utilized for this procedure. Some fluoroscopic images are performed with last image hold technology. These images require no additional radiation. Reviewed by ALHAJI Iyer 01/21/2019 01:12 P Electronically Signed by Jamie Toscano MD 01/21/2019 02:13 P
[2019-01-21] MEDS: LevoFLOXacin IV 250 MG in APPROPRIATE DILUENT 1 EA IV SCH (14:35)
[2019-01-21] MEDS ORDERED: POTASSIUM CHLORIDE 10% LIQ 20 MEQ/15 ML UDC PO ONE ×2 (18:00→20:00)
[2019-01-21] MEDS: ONDANSETRON 4MG/2ML VIAL (J2405) IV PRN (18:49)
[2019-01-21 22:00] VITALS: BP 120/58
[2019-01-22] MEDS: METOCLOPRAMIDE INJ 10MG/2ML VIAL (J2765) IV SCH ×5 (00:14→23:02)
[2019-01-22] MEDS: IPRATROPIUM 0.5MG/ALBUTEROL 2.5MG INH SOL UD 3ML (DUONEB)(J7620) NEB SCH ×4 (01:52→20:07)
[2019-01-22] MEDS: NS 1,000 ML IV SCH ×2 (03:18→17:34)
[2019-01-22 06:00] VITALS: BP 112/55
[2019-01-22] MEDS: methylPREDNISolone INJ 40 MG/1 ML VIAL (J2920) IV SCH ×2 (06:27→17:33)
[2019-01-22 06:35] LABS: HEMATOCRIT 25.9 % (36.0-47.0); HEMOGLOBIN 8.4 g/dl (12.0-15.5); MEAN CORPUSCULAR HEMOGLOBIN 30.7 pg (27.0-33.0); MEAN CORPUSCULAR HGB CONC 32.4 g/dl (32.0-36.5); MEAN CORPUSCULAR VOLUME 94.5 fl (80.0-96.0); PLATELET COUNT, AUTOMATED 145 10^3/uL (150-450); RED BLOOD COUNT 2.74 10^6/uL (4.00-5.40); WHITE BLOOD COUNT 16.2 10^3/uL (4.0-10.0)
[2019-01-22 06:59] LABS: ALBUMIN 2.2 GM/DL (3.2-5.2); ALT/SGPT 28 U/L (12-78); BILIRUBIN,TOTAL 0.5 MG/DL (0.2-1.0); BLOOD UREA NITROGEN 8 MG/DL (7-18); CALCIUM LEVEL 7.7 MG/DL (8.8-10.2); CARBON DIOXIDE LEVEL 31 MEQ/L (21-32); CHLORIDE LEVEL 108 MEQ/L (98-107); CREATININE FOR GFR 0.43 MG/DL (0.55-1.30); GLOMERULAR FILTRATION RATE > 60.0 (>45); GLUCOSE, FASTING 82 MG/DL (70-100); POTASSIUM SERUM 3.8 MEQ/L (3.5-5.1); SODIUM LEVEL 142 MEQ/L (136-145)
[2019-01-22] MEDS: ANORO ELLIPTA INH SCH (08:00)
[2019-01-22] MEDS: ARNUITY ELLIPTA 200 MCG INH SCH (08:00)
[2019-01-22] MEDS: PANTOPRAZOLE 40MG INJ (PROTONIX) (C9113) IV SCH ×2 (08:58→21:01)
[2019-01-22] MEDS: guaiFENesin ER 600 MG TAB PO SCH ×2 (08:58→21:00)
--- NOTE | 2019-01-22 09:13 | IPNPDOC ---
Text Note Date of Service The patient was seen on 01/22/19. NOTE No acute events overnight. No abd pains. No current complaints. She is still having BMs and lots of flatus as well. Tolerating the CLQ diet with the NGT clamped. No problems with nausea or emesis. VSSAF NAD abd - soft, non distended, NT, no rebound labs - below SBFT - slow transit, but no signs of any obstructions A) 63y/o female with n/v/d that all started 48 hours after chemo for lung cancer. Ileus vs. partial SBO that is resolved leukocytosis improving slowly aspiration pneumonia P) dc NGT low residue diet ambulate as much as possible abx will follow as needed. Lakhwinder Mcarthur DO VS,Saige, I+O VS, Saige, I+O Laboratory Tests 01/22/19 06:15 Red Blood Count 2.74 L, Mean Corpuscular Volume 94.5, Mean Corpuscular Hemoglobin 30.7, Mean Corpuscular Hemoglobin Concent 32.4, Red Cell Distribution Width 15.3 H, Calcium Level 7.7 L, Aspartate Amino Transf (AST/SGOT) 18, Alanine Aminotransferase (ALT/SGPT) 28, Alkaline Phosphatase 88, Total Bilirubin 0.5 #, Total Protein 5.0 L, Albumin 2.2 L Vital Signs Date Time Temp Pulse Resp B/P (MAP) Pulse Ox O2 Delivery O2 Flow Rate FiO2 01/22/19 06:00 97.4 99 16 112/55 (74) 93 4.0 I&O- Last 24 Hours up to 6 AM 01/22/19 06:00 Intake Total 2375 ml Output Total 400 ml Balance 1975 ml MARC MCARTHUR DO Jan 22, 2019 09:12
--- NOTE | 2019-01-22 11:40 | IPNPDOC ---
Subjective Date Seen The patient was seen on 01/22/19. Subjective Chief Complaint/HPI NG tube d/c'd this am by surgery - so far feels good - no n/v or abd pain Constitutional: Denies: Chills, Fever Pulmonary: Denies: Dyspnea, Cough Cardiovascular: Denies: Chest Pain, Palpitations Gastrointestinal: Denies: Nausea, Vomiting, Abdominal Pain, Diarrhea, Constipation Objective Physical Examination General Exam: Positive: Alert, Cooperative, No Acute Distress ENT Exam: Positive: Mucous membr. moist/pink Chest Exam: Negative: Rales, Rhonchi, Wheezing Heart Exam: Positive: Rate Normal, Regular Rhythm, Normal S1, Normal S2 Abdomen Exam: Positive: BS Hyperactive; Negative: Tenderness Extremity Exam: Negative: Edema Neuro Exam: Positive: Normal Speech Psych Exam: Positive: Mental status NL, Mood NL Assessment /Plan Problems (1) SBO (small bowel obstruction) Status: Acute Response to Treatment: Stable Discussed With: Nurse, Patient Problem Specific Plan: Monitor Clinically Problem Text: 01/22 - NG tube d/c'd this am per surgery Diet ordered 01/21 - SBFT pending - Dr. Mcarthur reviewing this and will determine if NG can come out vs taking her to OR 01/19 - NGT per surgery KUB pending May need surgery 01/18/19: Continue with NGT and recommendations per surgery. 01/17/19 CT AP: [facility] NAME: DYLLAN GILLETTE DATE OF : 1955 AGE: 63 SEX: F REPORT #: [id number] ROOM: [facility] TECHNOLOGIST: [id number] DOCTOR: MARC MCARTHUR DO Ordered for Date&Time: 01/17/19 0959 cc: [~ rep ct ivnm] Service Date&Time: 01/17/19 1050 This report is in Signed status. If this report is in a DRAFT status it has not yet been reviewed by the radiologist for accuracy. Thank you for having your radiology procedures performed at [facility] RADIOLOGY REPORT Date&Time printed: [~ rep prt dt last] [~ rep prt tm last] Page 2 of 2 [place] [address] RADIOLOGY REPORT This report is in Signed status. If this report is in a DRAFT status it has not yet been reviewed by the radiol ogist for accuracy. Thank you for having your radiology procedures performed at [facility] RADIOLOGY REPORT Date&Time printed: [~ rep prt dt last] [~ rep prt tm last] Page 1 of 1 Impression: 1. Pattern of small bowel obstruction with dilated small bowel loops from proximal to distal and collapsed colon. Some air-fluid levels in dilated loops of up to 3.2 cm diameter loops visible. Some mild edema in the mesentery. No perforation or free air or generalized ascites. 2. Colon collapsed. There is diverticulosis left colon and sigmoid without diverticulitis. 3. Status post cholecystectomy of postcholecystectomy changes, stable. 4. New small right pleural effusion, dense consolidation posterior medial basal segments of the right lower lobe suggesting acute infiltrate or aspiration pneumonitis. Advanced emphysematous changes in the lungs. ADDENDUM at the time of signature: A few hours after completion of the exam, I spoke to the attending surgeon about these findings. Electronically Signed by Castro Walker MD 01/18/2019 08:47 A DD: Castro Walker MD 01/17/19 1141 0801 DS: VY 01/18/19 0847 01/18/19 0847 [~ rep ct labl] 01/15/19: KUB this morning, results pending. Patient is consuming clear liquids. No further vomiting this morning. She is having BMs, some loose, some firm. GI panel negative. BC negative after [address] MCARTHUR WHO RECOMMENDS THAT WE PROCEED WITH TREATING HER SBO, NG, TO DECOMPRESS. (2) Pneumonia Problem Text: Aspiration Pneumonia - COnt Levaquin & Solumedrol - change to po once NG tube out cont oxygen Encourage IS Add Mucinex c baseline severe COPD favor aspiration (3) Thrombocytopenia Status: Acute Response to Treatment: Improving Problem Text: 01/21 - Platelets up to 118 Dropping further - down to 59 Lovenox held yesterday Monitor trend off heparin (4) Anemia Status: Acute Response to Treatment: Stable Problem Text: 01/21 - stable 01/18 hgb down 9.1, plt 64K-LMWH held (5) HTN (hypertension) Status: Chronic Response to Treatment: Stable Problem Specific Plan: Monitor Clinically (6) Adenocarcinoma of lung Status: Chronic (7) PALLAVI (acute kidney injury) Status: Resolved Response to Treatment: Improving Problem Text: close to baseline ~0.6 c IVF Plan/VTE VTE Prophylaxis Ordered?: Yes (Lovenox) VS, I&O, 24H, Fishbone Vital Signs/I&O Vital Signs Date Time Temp Pulse Resp B/P (MAP) Pulse Ox O2 Delivery O2 Flow Rate FiO2 01/22/19 09:00 4.0 01/22/19 06:00 97.4 99 16 112/55 (74) 93 I&O- Last 24 Hours up to 6 AM 01/22/19 06:00 Intake Total 2375 ml Output Total 400 ml Balance 1975 ml Laboratory Data 24H LABS Laboratory Tests 2 01/22/19 06:15: Nucleated Red Blood Cells % (auto) 0.0, Anion Gap 3L, Glomerular Filtration Rate > 60.0, Blood Urea Nitrogen 8, Creatinine 0.43L, Sodium Level 142, Potassium Level 3.8, Chloride Level 108H, Carbon Dioxide Level 31, Calcium Level 7.7L, Aspartate Amino Transf (AST/SGOT) 18, Alanine Aminotransferase (ALT/SGPT) 28, Alkaline Phosphatase 88, Total Bilirubin 0.5#, Total Protein 5.0L, Albumin 2.2L, Albumin/Globulin Ratio 0.79L CBC/BMP Laboratory Tests 01/22/19 06:15 Red Blood Count 2.74 L, Mean Corpuscular Volume 94.5, Mean Corpuscular Hemoglobin 30.7, Mean Corpuscular Hemoglobin Concent 32.4, Red Cell Distribution Width 15.3 H, Calcium Level 7.7 L, Aspartate Amino Transf (AST/SGOT) 18, Alanine Aminotransferase (ALT/SGPT) 28, Alkaline Phosphatase 88, Total Bilirubin 0.5 #, Total Protein 5.0 L, Albumin 2.2 L Microbiology Microbiology 01/12/19 Blood Culture - Final, Complete NO GROWTH AFTER 5 DAYS 01/13/19 Gastrointestinal Tract Panel (PCR) - Final, Complete EDIE BAILEY PA-C Jan 22, 2019 11:40
[2019-01-22] MEDS: MORPHINE 4 MG/ML 1ML VIAL/SYRINGE (J2270) IV PRN ×4 (11:52→23:03)
[2019-01-22 14:00] VITALS: BP 116/67
[2019-01-22] MEDS: ONDANSETRON 4MG/2ML VIAL (J2405) IV PRN (16:50)
[2019-01-22] MEDS: PROMETHAZINE INJ 25 MG/ML VIAL (J2550) IV PRN (21:01)
[2019-01-22 22:00] VITALS: BP 119/57
[2019-01-23] MEDS: IPRATROPIUM 0.5MG/ALBUTEROL 2.5MG INH SOL UD 3ML (DUONEB)(J7620) NEB SCH ×4 (02:00→19:52)
[2019-01-23] MEDS: CEPACOL LOZENGE PO PRN (02:44)
[2019-01-23] MEDS: METOCLOPRAMIDE INJ 10MG/2ML VIAL (J2765) IV SCH ×3 (05:24→17:11)
[2019-01-23] MEDS: methylPREDNISolone INJ 40 MG/1 ML VIAL (J2920) IV SCH (05:24)
[2019-01-23] MEDS: ONDANSETRON 4MG/2ML VIAL (J2405) IV PRN ×3 (05:46→20:26)
[2019-01-23] MEDS: MORPHINE 4 MG/ML 1ML VIAL/SYRINGE (J2270) IV PRN ×3 (05:46→20:25)
[2019-01-23 05:57] LABS: HEMOGLOBIN 9.7 g/dl (12.0-15.5); MEAN CORPUSCULAR HEMOGLOBIN 30.7 pg (27.0-33.0); MEAN CORPUSCULAR HGB CONC 32.3 g/dl (32.0-36.5); MEAN CORPUSCULAR VOLUME 94.9 fl (80.0-96.0); PLATELET COUNT, AUTOMATED 221 10^3/uL (150-450); RED BLOOD COUNT 3.16 10^6/uL (4.00-5.40); WHITE BLOOD COUNT 23.7 10^3/uL (4.0-10.0)
[2019-01-23 06:00] VITALS: BP 120/59
[2019-01-23 06:20] LABS: ALBUMIN 2.4 GM/DL (3.2-5.2); ALT/SGPT 28 U/L (12-78); BILIRUBIN,TOTAL 0.3 MG/DL (0.2-1.0); BLOOD UREA NITROGEN 9 MG/DL (7-18); CALCIUM LEVEL 7.4 MG/DL (8.8-10.2); CARBON DIOXIDE LEVEL 29 MEQ/L (21-32); CHLORIDE LEVEL 104 MEQ/L (98-107); CREATININE FOR GFR 0.42 MG/DL (0.55-1.30); GLOMERULAR FILTRATION RATE > 60.0 (>45); GLUCOSE, FASTING 84 MG/DL (70-100); POTASSIUM SERUM 3.5 MEQ/L (3.5-5.1); SODIUM LEVEL 140 MEQ/L (136-145); TOTAL PROTEIN 5.5 GM/DL (6.4-8.2)
[2019-01-23] MEDS: NS 1,000 ML IV SCH (06:23)
[2019-01-23] MEDS: ANORO ELLIPTA INH SCH (07:26)
[2019-01-23] MEDS: ARNUITY ELLIPTA 200 MCG INH SCH (07:27)
[2019-01-23] MEDS: guaiFENesin ER 600 MG TAB PO SCH ×2 (08:19→21:00)
[2019-01-23] MEDS: PANTOPRAZOLE 40MG INJ (PROTONIX) (C9113) IV SCH ×2 (08:19→20:26)
[2019-01-23] MEDS: predniSONE 20 MG TAB PO SCH (09:36)
--- NOTE | 2019-01-23 10:31 | IPN ---
DATE: 01/20/2019 Hailee feels the best she has in several days. She was a little nauseated last night but better today. Nasogastric tube is out, and she feels well. PHYSICAL EXAMINATION: Afebrile. Vital signs stable. Lungs: Clear. Heart: Regular rhythm. Abdomen: Soft, slightly distended. No masses. No peripheral edema. LABORATORY: White count is 23, hemoglobin 9.7, platelets 221, and electrolytes unremarkable. IMPRESSION: Clinically she is improved. Her small bowel obstruction seems to have resolved. Her white count is still up; this might be reactive. Pneumonia. She is on Levaquin and Solu-Medrol. Thrombocytopenia. This has improved. Anemia. Hemoglobin is stable. Will put her on oral antibiotic and oral steroid today. At this point, I am thinking about possibly Friday as a discharge date.
[2019-01-23] MEDS: LevoFLOXacin 250 MG TABLET PO SCH (12:34)
[2019-01-23] MEDS: LACTOBACILLUS ACIDOPHILUS CAP (BACID) PO SCH ×3 (12:34→20:26)
[2019-01-23] MEDS: SIMETHICONE 80 MG CHEW TAB PO SCH ×3 (12:35→20:26)
[2019-01-23 14:00] VITALS: BP 121/72
[2019-01-24] MEDS: METOCLOPRAMIDE INJ 10MG/2ML VIAL (J2765) IV SCH ×5 (00:11→23:12)
[2019-01-24] MEDS: IPRATROPIUM 0.5MG/ALBUTEROL 2.5MG INH SOL UD 3ML (DUONEB)(J7620) NEB SCH ×4 (01:59→20:01)
[2019-01-24 04:00] VITALS: BP 123/58
[2019-01-24] MEDS: MORPHINE 4 MG/ML 1ML VIAL/SYRINGE (J2270) IV PRN ×3 (05:42→19:55)
[2019-01-24 05:44] LABS: HEMATOCRIT 26.1 % (36.0-47.0); HEMOGLOBIN 8.5 g/dl (12.0-15.5); MEAN CORPUSCULAR HEMOGLOBIN 30.5 pg (27.0-33.0); MEAN CORPUSCULAR HGB CONC 32.6 g/dl (32.0-36.5); MEAN CORPUSCULAR VOLUME 93.5 fl (80.0-96.0); PLATELET COUNT, AUTOMATED 232 10^3/uL (150-450); RED BLOOD COUNT 2.79 10^6/uL (4.00-5.40); WHITE BLOOD COUNT 16.1 10^3/uL (4.0-10.0)
[2019-01-24 06:00] VITALS: BP 127/59
[2019-01-24 06:04] LABS: ALT/SGPT 21 U/L (12-78); BILIRUBIN,TOTAL 0.3 MG/DL (0.2-1.0); BLOOD UREA NITROGEN 8 MG/DL (7-18); CALCIUM LEVEL 7.3 MG/DL (8.8-10.2); CARBON DIOXIDE LEVEL 32 MEQ/L (21-32); CHLORIDE LEVEL 102 MEQ/L (98-107); CREATININE FOR GFR 0.38 MG/DL (0.55-1.30); GLOMERULAR FILTRATION RATE > 60.0 (>45); GLUCOSE, FASTING 88 MG/DL (70-100); POTASSIUM SERUM 3.1 MEQ/L (3.5-5.1); SODIUM LEVEL 140 MEQ/L (136-145); TOTAL PROTEIN 4.5 GM/DL (6.4-8.2)
[2019-01-24] MEDS: PANTOPRAZOLE 40MG INJ (PROTONIX) (C9113) IV SCH (08:53)
[2019-01-24] MEDS: SIMETHICONE 80 MG CHEW TAB PO SCH ×4 (08:53→20:44)
[2019-01-24] MEDS: predniSONE 20 MG TAB PO SCH (08:53)
[2019-01-24] MEDS: LACTOBACILLUS ACIDOPHILUS CAP (BACID) PO SCH ×4 (08:53→20:44)
[2019-01-24] MEDS: guaiFENesin ER 600 MG TAB PO SCH ×2 (08:54→20:47)
[2019-01-24] MEDS: CLOTRIMAZOLE 10 MG TROCHE PO SCH ×4 (09:00→20:45)
[2019-01-24] MEDS: ANORO ELLIPTA INH SCH (09:00)
[2019-01-24] MEDS: ARNUITY ELLIPTA 200 MCG INH SCH (09:00)
[2019-01-24] MEDS: POTASSIUM CHLORIDE 10 MEQ SR TABLET PO SCH ×2 (10:00→20:47)
--- NOTE | 2019-01-24 10:52 | IPN ---
DATE OF SERVICE: 01/24/2019 Hailee is seen [facility]. She is feeling well. Advancing her diet. She does not think she is ready to go home yet, still having trouble eating but thinks in the next day or two, she will be ready. PHYSICAL EXAMINATION: 125/59, afebrile. Vital signs stable. She looks much better. Lungs clear. Heart: Regular rhythm. Abdomen soft, nondistended, no masses. No peripheral edema. White count 16.1, hemoglobin 8.5, potassium is down to 3.1. IMPRESSION: 1. Small bowel obstruction. This is resolved. Advancing her diet. Go home in the next day or two after taking oral better. 2. Aspiration pneumonia. She is on Levaquin and oral steroids. 3. Thrombocytopenia, daily CBC has been ordered. Platelets have recovered. White count is improving. 4. 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 5. Acute kidney injury, resolved. 6. Hypokalemia, supplemental potassium has been started. We discussed rehabilitation. She rejected the option. She wants to go home. Says she is strong enough to go home. She just needs to be able to eat better.
[2019-01-24 14:00] VITALS: BP 112/58
--- NOTE | 2019-01-24 18:21 | IPN ---
DATE: 01/23/2019 The patient overall has been doing relatively well with clear liquids and has progressed to a regular diet yesterday. Has been taking very minimal by mouth intake and feels extremely distended and obviously looks distended. Fortunately she has been afebrile. Her physical exam shows she is tympanitic throughout her abdomen without guarding, without rebound, without peritoneal signs. Her upper GI with small-bowel followthrough shows delayed flow through the small bowel which may be contributing to this distension. IMPRESSION AND PLAN: At this point I would recommend continuing her as is. I will add some simethicone product for her, add some lactobacillus, given that this may also be a by-product of her recent chemotherapy. We will see how she does overnight. If she is making some good progress from a surgical standpoint once she is tolerating a regular diet and is comfortable she can be discharged home.
--- NOTE | 2019-01-24 18:24 | IPN ---
DATE: 01/24/2019 The patient seems to be doing much better today. She has been eating a little bit more than she was yesterday and she is feeling less bloated; however, still has a lot of pressure "in her chest from her belly pushing against this area". On her physical exam, she is definitely less distended than she was yesterday. She is still tympanitic and she has air that is quite noticeable, but otherwise it is significantly improved from yesterday. IMPRESSION AND PLAN: The patient continues with some slow but progressive improvement and I anticipate this is all chemotherapy-induced enteritis, less likely a true bowel obstruction picture and I would recommend encouraging her to slowly progress her diet, increase her activity and to follow up with us on a as needed basis. Otherwise from a general surgery standpoint, I will be signing off unless you have any additional questions or concerns.
[2019-01-24] MEDS: ONDANSETRON 4MG/2ML VIAL (J2405) IV PRN (19:54)
[2019-01-24 22:00] VITALS: BP 110/54
[2019-01-25] MEDS: IPRATROPIUM 0.5MG/ALBUTEROL 2.5MG INH SOL UD 3ML (DUONEB)(J7620) NEB SCH ×4 (02:00→20:23)
[2019-01-25] MEDS: ONDANSETRON 4MG/2ML VIAL (J2405) IV PRN ×4 (02:52→20:26)
[2019-01-25] MEDS: MORPHINE 4 MG/ML 1ML VIAL/SYRINGE (J2270) IV PRN ×5 (02:52→23:52)
[2019-01-25] MEDS: METOCLOPRAMIDE INJ 10MG/2ML VIAL (J2765) IV SCH ×4 (05:10→23:52)
[2019-01-25] MEDS: CLOTRIMAZOLE 10 MG TROCHE PO SCH ×5 (05:10→20:19)
[2019-01-25 06:00] VITALS: BP 113/52
[2019-01-25 06:09] LABS: BASO % 0.1 % (0.0-1.0); HEMATOCRIT 25.7 % (36.0-47.0); HEMOGLOBIN 8.4 g/dl (12.0-15.5); LYMPH # 0.9 10^3/uL (1.5-4.5); LYMPH % 6.5 % (24.0-44.0); MEAN CORPUSCULAR HEMOGLOBIN 30.5 pg (27.0-33.0); MEAN CORPUSCULAR HGB CONC 32.7 g/dl (32.0-36.5); MEAN CORPUSCULAR VOLUME 93.5 fl (80.0-96.0); MONO # 0.8 10^3/uL (0.0-0.8); MONO % 5.8 % (0.0-5.0); NEUTROPHILS # 12.5 10^3/uL (1.8-7.7); PLATELET COUNT, AUTOMATED 262 10^3/uL (150-450); RED BLOOD COUNT 2.75 10^6/uL (4.00-5.40); WHITE BLOOD COUNT 14.4 10^3/uL (4.0-10.0)
[2019-01-25 06:27] LABS: BLOOD UREA NITROGEN 7 MG/DL (7-18); CALCIUM LEVEL 7.3 MG/DL (8.8-10.2); CARBON DIOXIDE LEVEL 32 MEQ/L (21-32); CHLORIDE LEVEL 98 MEQ/L (98-107); CREATININE FOR GFR 0.35 MG/DL (0.55-1.30); GLOMERULAR FILTRATION RATE > 60.0 (>45); GLUCOSE, FASTING 84 MG/DL (70-100); POTASSIUM SERUM 2.8 MEQ/L (3.5-5.1); SODIUM LEVEL 138 MEQ/L (136-145)
[2019-01-25] MEDS ORDERED: POTASSIUM CHLORIDE 10 MEQ SR TABLET PO ONE (06:45)
[2019-01-25] MEDS ORDERED: KCL 10MEQ IN STERILE WATER 100ML As Ordered ONE (06:47)
[2019-01-25] MEDS: KCL 10MEQ/100ML SWI (KRUN) 10 MEQ in APPROPRIATE DILUENT 1 EA IV SCH ×2 (06:55→08:21)
[2019-01-25] MEDS: ANORO ELLIPTA INH SCH (07:57)
[2019-01-25] MEDS: ARNUITY ELLIPTA 200 MCG INH SCH (08:00)
[2019-01-25] MEDS: SIMETHICONE 80 MG CHEW TAB PO SCH ×4 (08:21→20:20)
[2019-01-25] MEDS: PANTOPRAZOLE 40MG TAB (PROTONIX) PO SCH (08:22)
[2019-01-25] MEDS: predniSONE 20 MG TAB PO SCH (08:22)
[2019-01-25] MEDS: LACTOBACILLUS ACIDOPHILUS CAP (BACID) PO SCH ×4 (08:22→20:19)
[2019-01-25] MEDS: guaiFENesin ER 600 MG TAB PO SCH ×2 (08:23→20:17)
[2019-01-25] MEDS: POTASSIUM CHLORIDE 10 MEQ SR TABLET PO SCH ×2 (09:00→20:19)
--- NOTE | 2019-01-25 09:27 | IPNPDOC ---
Subjective Date Seen The patient was seen on 01/25/19. Subjective Chief Complaint/HPI Patient resting in bed as I entered the room. She continues to report decreased appetite and states food is unappealing to her. She has not eaten breakfast yet today Constitutional: Denies: Chills, Fever Pulmonary: Denies: Dyspnea, Cough Cardiovascular: Denies: Chest Pain, Palpitations, Orthopnea Gastrointestinal: Reports: Nausea; Denies: Vomiting, Abdominal Pain, Constipation Psych: Reports: Mood Normal Objective Physical Examination General Exam: Positive: Alert, Cooperative, No Acute Distress ENT Exam: Positive: Mucous membr. moist/pink Chest Exam: Negative: Rales, Rhonchi, Wheezing Heart Exam: Positive: Rate Normal, Regular Rhythm, Normal S1, Normal S2 Abdomen Exam: Positive: BS Hyperactive; Negative: Tenderness Extremity Exam: Negative: Edema Neuro Exam: Positive: Normal Speech Psych Exam: Positive: Mental status NL, Mood NL Assessment /Plan Problems (1) SBO (small bowel obstruction) Status: Resolved Response to Treatment: Stable Discussed With: Nurse, Patient Problem Specific Plan: Monitor Clinically Problem Text: 01/25/19: Patient is slowly improving her diet. She states she has decreased appetite and food is unappealing to her, however, she is working to advance her diet. Plan for d/c tomorrow 01/22 - NG tube d/c'd this am per surgery Diet ordered 01/21 - SBFT pending - Dr. Mcarthur reviewing this and will determine if NG can come out vs taking her to OR 01/19 - NGT per surgery KUB pending May need surgery 01/18/19: Continue with NGT and recommendations per surgery. 01/17/19 CT AP: [facility] NAME: DYLLAN GILLETTE DATE OF : 1955 AGE: 63 SEX: F REPORT #: [id number] [facility] TECHNOLOGIST: [id number] DOCTOR: MARC MCARTHUR DO Ordered for Date&Time: 01/17/19 0959 cc: [~ rep ct ivnm] Service Date&Time: 01/17/19 1050 This report is in Signed status. If this report is in a DRAFT status it has not yet been reviewed by the radiologist for accuracy. Thank you for having your radiology procedures performed at [facility] RADIOLOGY REPORT Date&Time printed: [~ rep prt dt last] [~ rep prt tm last] Page [address] [address] RADIOLOGY REPORT This report is in Signed status. If this report is in a DRAFT status it has not yet been reviewed by the radiologist for accuracy. Thank you for having your radiology procedures performed at [facility] RADIOLOGY REPORT Date&Time printed: [~ rep prt dt last] [~ rep prt tm last] Page 1 of 1 Impression: 1. Pattern of small bowel obstruction with dilated small bowel loops from proximal to distal and collapsed colon. Some air-fluid levels in dilated loops of up to 3.2 cm diameter loops visible. Some mild edema in the mesentery. No perforation or free air or generalized ascites. 2. Colon collapsed. There is diverticulosis left colon and sigmoid without diverticulitis. 3. Status post cholecystectomy of postcholecystectomy changes, stable. 4. New small right pleural effusion, dense consolidation posterior medial basal segments of the right lower lobe suggesting acute infiltrate or aspiration pneumonitis. Advanced emphysematous changes in the lungs. ADDENDUM at the time of signature: A few hours after completion of the exam, I spoke to the attending surgeon about these findings. Electronically Signed by Castro Walker MD 01/18/2019 08:47 A DD: Castro Walker MD 01/17/19 1141 0801 DS: VY 01/18/19 0847 01/18/19 0847 [~ rep ct labl] 01/15/19: KUB this morning, results pending. Patient is consuming clear liquids. No further vomiting this morning. She is having BMs, some loose, some firm. GI panel negative. BC negative after [address] MCARTHUR WHO RECOMMENDS THAT WE PROCEED WITH TREATING HER SBO, NG, TO DECOMPRESS. (2) Hypokalemia Status: Acute Problem Text: 01/25/19: K+ runs x 2. Recheck K+ at 12pm (3) Pneumonia Status: Acute Response to Treatment: Stable Problem Text: 01/25/19: Afebrile. WBC 14.4. D#9 of Levaquin Aspiration Pneumonia - COnt Levaquin & Solumedrol - change to po once NG tube out cont oxygen Encourage IS Add Mucinex c baseline severe COPD favor aspiration (4) Anemia Status: Acute Response to Treatment: Stable Problem Text: 01/25/19: Hgb 8.4 01/21 - stable 01/18 hgb down 9.1, plt 64K-LMWH held (5) Thrombocytopenia Status: Resolved Response to Treatment: Improving Problem Text: 01/21 - Platelets up to 118 Dropping further - down to 59 Lovenox held yesterday Monitor trend off heparin (6) HTN (hypertension) Status: Chronic Response to Treatment: Stable Problem Specific Plan: Monitor Clinically (7) Adenocarcinoma of lung Status: Chronic (8) PALLAVI (acute kidney injury) Status: Resolved Response to Treatment: Improving Problem Text: close to baseline ~0.6 c IVF Plan/VTE VTE Prophylaxis Ordered?: Yes (Lovenox) VS, I&O, 24H, Fishbone Vital Signs/I&O Vital Signs Date Time Temp Pulse Resp B/P (MAP) Pulse Ox O2 Delivery O2 Flow Rate FiO2 01/25/19 06:00 97.3 103 20 113/52 (72) 93 4.0 01/23/19 19:52 Nasal Cannula I&O- Last 24 Hours up to 6 AM 01/25/19 06:00 Intake Total 1450 ml Output Total 700 ml Balance 750 ml Laboratory Data 24H LABS Laboratory Tests 2 01/25/19 05:38: Immature Granulocyte % (Auto) 0.6, White Blood Count 14.4H, Red Blood Count 2.75L, Hemoglobin 8.4L, Hematocrit 25.7L, Mean Corpuscular Volume 93.5, Mean Corpuscular Hemoglobin 30.5, Mean Corpuscular Hemoglobin Concent 32.7, Red Cell Distribution Width 15.1H, Platelet Count 262, Neutrophils (%) (Auto) 87.0H, Lymphocytes (%) (Auto) 6.5L, Monocytes (%) (Auto) 5.8H, Eosinophils (%) (Auto) 0.0, Basophils (%) (Auto) 0.1, Neutrophils # (Auto) 12.5H, Lymphocytes # (Auto) 0.9L, Monocytes # (Auto) 0.8, Eosinophils # (Auto) 0.0, Basophils # (Auto) 0.0, Nucleated Red Blood Cells % (auto) 0.0, Anion Gap 8, Glomerular Filtration Rate > 60.0, Blood Urea Nitrogen 7, Creatinine 0.35L, Sodium Level 138, Potassium Level 2.8*L, Chloride Level 98, Carbon Dioxide Level 32, Calcium Level 7.3L CBC/BMP Laboratory Tests 01/25/19 05:38 Red Blood Count 2.75 L, Mean Corpuscular Volume 93.5, Mean Corpuscular Hemoglobin 30.5, Mean Corpuscular Hemoglobin Concent 32.7, Red Cell Distribution Width 15.1 H, Neutrophils (%) (Auto) 87.0 H, Lymphocytes (%) (Auto) 6.5 L, Monocytes (%) (Auto) 5.8 H, Eosinophils (%) (Auto) 0.0, Basophils (%) (Auto) 0.1, Neutrophils # (Auto) 12.5 H, Lymphocytes # (Auto) 0.9 L, Monocytes # (Auto) 0.8, Eosinophils # (Auto) 0.0, Basophils # (Auto) 0.0, Calcium Level 7.3 L [facility] Jan 25, 2019 09:27
[2019-01-25] MEDS: LevoFLOXacin 250 MG TABLET PO SCH (11:55)
[2019-01-25 14:00] VITALS: BP 112/59
[2019-01-25] MEDS: MAALOX 30 ML SUSP *UDC PO PRN ×2 (18:11→22:43)
[2019-01-25 20:00] VITALS: BP 111/61
[2019-01-26] MEDS: raNITIdine SYRUP 150 MG/10 ML UDC GT SCH ×2 (01:10→08:09)
[2019-01-26] MEDS: IPRATROPIUM 0.5MG/ALBUTEROL 2.5MG INH SOL UD 3ML (DUONEB)(J7620) NEB SCH ×3 (02:00→13:42)
[2019-01-26] MEDS: ONDANSETRON 4MG/2ML VIAL (J2405) IV PRN (03:27)
[2019-01-26] MEDS: MORPHINE 4 MG/ML 1ML VIAL/SYRINGE (J2270) IV PRN (03:27)
[2019-01-26 06:00] VITALS: BP 112/63
[2019-01-26] MEDS: METOCLOPRAMIDE INJ 10MG/2ML VIAL (J2765) IV SCH ×2 (06:18→12:00)
[2019-01-26] MEDS: CLOTRIMAZOLE 10 MG TROCHE PO SCH ×4 (06:18→12:23)
[2019-01-26 06:47] LABS: BASO % 0.1 % (0.0-1.0); HEMATOCRIT 26.2 % (36.0-47.0); HEMOGLOBIN 8.5 g/dl (12.0-15.5); LYMPH # 0.6 10^3/uL (1.5-4.5); LYMPH % 4.4 % (24.0-44.0); MEAN CORPUSCULAR HEMOGLOBIN 30.6 pg (27.0-33.0); MEAN CORPUSCULAR HGB CONC 32.4 g/dl (32.0-36.5); MEAN CORPUSCULAR VOLUME 94.2 fl (80.0-96.0); MONO # 0.9 10^3/uL (0.0-0.8); MONO % 6.6 % (0.0-5.0); NEUTROPHILS # 11.7 10^3/uL (1.8-7.7); NEUTROPHILS % 88.3 % (36.0-66.0); PLATELET COUNT, AUTOMATED 300 10^3/uL (150-450); RED BLOOD COUNT 2.78 10^6/uL (4.00-5.40); WHITE BLOOD COUNT 13.2 10^3/uL (4.0-10.0)
[2019-01-26] MEDS ORDERED: ACETAMINOPHEN 500 MG TAB PO PRN (07:00)
[2019-01-26 07:17] LABS: BLOOD UREA NITROGEN 7 MG/DL (7-18); CALCIUM LEVEL 7.4 MG/DL (8.8-10.2); CARBON DIOXIDE LEVEL 32 MEQ/L (21-32); CHLORIDE LEVEL 98 MEQ/L (98-107); CREATININE FOR GFR 0.42 MG/DL (0.55-1.30); GLOMERULAR FILTRATION RATE > 60.0 (>45); GLUCOSE, FASTING 95 MG/DL (70-100); SODIUM LEVEL 134 MEQ/L (136-145)
[2019-01-26] MEDS: ANORO ELLIPTA INH SCH (07:53)
[2019-01-26] MEDS: ARNUITY ELLIPTA 200 MCG INH SCH (07:53)
[2019-01-26] MEDS: SIMETHICONE 80 MG CHEW TAB PO SCH ×2 (07:58→12:23)
[2019-01-26] MEDS: predniSONE 20 MG TAB PO SCH (07:58)
[2019-01-26] MEDS: LACTOBACILLUS ACIDOPHILUS CAP (BACID) PO SCH ×2 (07:58→12:23)
[2019-01-26] MEDS: POTASSIUM CHLORIDE 10 MEQ SR TABLET PO SCH (08:00)
[2019-01-26] MEDS: PANTOPRAZOLE 40MG TAB (PROTONIX) PO SCH (08:00)
[2019-01-26] MEDS: guaiFENesin ER 600 MG TAB PO SCH (08:09)
[2019-01-26] MEDS ORDERED: KLOR10TA76 PO (10:51)
[2019-01-26] MEDS ORDERED: PRED20TA PO (10:51)
[2019-01-26] MEDS: MAALOX 30 ML SUSP *UDC PO PRN (12:22)
--- NOTE | 2019-01-26 13:03 | DS.PDOC ---
Discharge Summary General Date of Admission Jan 14, 2019 at 10:17 Date of Discharge 01/26/19 Primary Care Physician: Alta Mohamud Attending Physician: Paul Pfeiffer MD Specialist/Consultants Involve: MARC BHAKTA DO Discharge Summary ADMITTING DIAGNOSES: 1. Chemo therapy associated nausea, vomiting and diarrhea 2. Oxygen dependent COPD 3. Adenocarcinoma of lungs 4. Mild Transaminitis DISCHARGE DIAGNOSES: 1. SBO 2. Chemotherapy induced enteritis 3. Acute Renal Failure 4. Pneumonia 5. Hypokalemia 6. Oxygen dependent COPD 7. Adenocarcinoma of lungs COMPLICATIONS/CHIEF COMPLAINT: Chemotherapy Induced Diarrhea; Nausea/Vomiting. HISTORY OF PRESENT ILLNESS: 63-year-old female presented to ER with complaints of nausea, nonbloody vomiting, and innumerable bouts of nonbloody diarrhea that began on Friday. Patient currently undergoing treatment for adenocarcinoma of the lungs. She had her second session of chemotherapy on prior to admission; after the first session of chemotherapy in November she had a similar reaction. She decided to come to the hospital because she felt "run down" and "couldn't move". Associated symptoms include cramping intense abdominal pain. She denied having fevers or chills. She has a chronic cough productive of yellow sputum, and has been wheezing since . She believed her COPD was acting up and may have been triggered by the humid weather HOSPITAL COURSE: Patient was admitted to the hospital initially to help control nausea/vomiting/diarrhea. Patient treated with bowel rest and IV fluids initially with diet to be advanced as tolerated. Her symptoms persisted with inadequate oral intake. She was unable to advance her diet without experiencing nausea, vomiting and she eventually developed some bowel distention. Surgery was consulted for further evaluation, ? SBO vs Ileus. She was treated as if she had a SBO and was started on NG to decompress. Her symptoms improved gradually over the course of her hospital stay. She advanced her diet slowly, started passing flatus, and having normal BMs. She did have bouts of decreased appetite with few episodes of vomiting throughout her hospital course, but overall she had slow, but progressive progress. Her symptoms were felt to be related to chemotherapy induced enteritis and not a true SBO. During the course of her hospital stay, around day 8, she developed acute renal failure and nephrology was consulted. ARF was felt to be related to urinary obstruction and prerenal azotemia. She had a zavala catheter placed and was treated with IV fluids. Renal function improved, returning to her baseline without any further intervention. She also had fluctuations in her potassium levels. Hyperkalemia (as a result of ARF) and hypokalemia (secondary to poor dietary intake, vomiting and diarrhea). Her K+ dropped to 2.8 and was corrected with K+ runs and oral K+ supplements. She was dx with pneumonia on 01/17/19 and treated with Levaquin. She completed a 10 day course. She was started on a steroid and nebulizers on day one of admission d/t her COPD exacerbation. Liver enzymes returned to baseline. Liver u/s performed and demonstrated post cholecystectomy with dilated common bile duct and pneumobilia. No pancreatic abnormality is seen. On day of discharge patient ate breakfast without further nausea or vomiting, K+ was wnl, and she felt ready to go home. DISCHARGE MEDICATIONS: Please see below. ALLERGIES: Please see below. PHYSICAL EXAMINATION ON DISCHARGE: VITAL SIGNS: Please see below. GENERAL: AOx3 HEENT: unremarkable NECK: soft, supple, no lymphadenopathy, no JVD CARDIOVASCULAR EXAMINATION:RRR RESPIRATORY EXAMINATION: diminished, no wheezing, rhonci or rales ABDOMINAL EXAMINATION: soft, non-distended, non-tender, BS +4 EXTREMITIES: no edema SKIN: warm, dry, no breakdown PSYCHIATRIC EXAMINATION: mood nml LABORATORY DATA: Please see below. IMAGING: Multiple images Chest X-ray 01/11/19: Impression: No evidence of pneumothorax. Chronic changes. Liver U/S 01/12/19: IMPRESSION: Post cholecystectomy with dilated common bile duct and pneumobilia. No pancreatic abnormality is seen. CT of abdomen and pelvis 01/13/19: IMPRESSION: 1. There is moderate distention of all of the small bowel with numerous air-fluid levels a large amount of secretions. Almost all of the contrast remains in the stomach. I would recommend a followup CT in 3 hours to determine if the contrast enters the right colon and to exclude any possibility of obstruction. 2. The patients significant small bowel dilatation could be secondary to ileus, enteritis or obstruction. CT of abdomen and pelvis 01/13/19: IMPRESSION: Moderate fluid distention of the gastric lumen. Mildly dilated fluid-filled loops of small bowel measuring up to 3.2 cm. Distal small bowel loops and colon are relatively decompressed. Findings remain concerning for early complete, intermittent or partial small bowel obstruction. Continued followup advised. No other acute intra-abdominal or pelvic process. Additional nonemergent findings as described above. KUB 01/15/19: Findings: There are clips in the right upper quadrant. There is air distributed throughout the colon loops without significant colonic distension. There are a few air-filled small bowel loops in the left mid abdomen. Bowel gas pattern is somewhat improved from the CT study. There are still some mildly dilated small bowel loops in the left mid abdomen. No evidence of free air on this KUB. Scoliosis is again seen. CT of abdomen and pelvis 01/17/19:Impression: 1. Pattern of small bowel obstruction with dilated small bowel loops from proximal to distal and collapsed colon. Some air-fluid levels in dilated loops of up to 3.2 cm diameter loops visible. Some mild edema in the mesentery. No perforation or free air or generalized ascites. 2. Colon collapsed. There is diverticulosis left colon and sigmoid without diverticulitis. 3. Status post cholecystectomy of postcholecystectomy changes, stable. 4. New small right pleural effusion, dense consolidation posterior medial basal segments of the right lower lobe suggesting acute infiltrate or aspiration pneumonitis. Advanced emphysematous changes in the lungs. Flate Plate 01/19/19: A comparison is 01/15/2019 Impression: Normal bowel gas pattern. Surgical clips, unchanged. NG tube as described. Small Bowel Follow thru 01/20/19: Impression: 1. Prolonged small bowel transit time to the colon. the colon, approximately 10 hours. 2. No evidence of a small bowel obstruction. ACTIVITY: As tolerated DIET: As tolerated DISCHARGE PLAN: To home, f/u with PCP and oncology DISCHARGE INSTRUCTIONS: 1. F/U with PCP 2. F/U with oncology ITEMS TO FOLLOW-UP ON: 1. Potassium recheck DISCHARGE CONDITION: Stable Vital Signs/I&Os Vital Signs Date Time Temp Pulse Resp B/P (MAP) Pulse Ox O2 Delivery O2 Flow Rate FiO2 01/26/19 11:11 3.0 01/26/19 06:00 98.1 100 16 112/63 (79) 94 01/23/19 19:52 Nasal Cannula I&O- Last 24 Hours up to 6 AM 01/26/19 05:59 Intake Total 1140 ml Output Total 900 ml Balance 240 ml Laboratory Data Labs 24H Laboratory Tests 2 01/26/19 06:05: Immature Granulocyte % (Auto) 0.6, White Blood Count 13.2H, Red Blood Count 2.78L, Hemoglobin 8.5L, Hematocrit 26.2L, Mean Corpuscular Volume 94.2, Mean Corpuscular Hemoglobin 30.6, Mean Corpuscular Hemoglobin Concent 32.4, Red Cell Distribution Width 15.3H, Platelet Count 300, Neutrophils (%) (Auto) 88.3H, Lymphocytes (%) (Auto) 4.4L, Monocytes (%) (Auto) 6.6H, Eosinophils (%) (Auto) 0.0, Basophils (%) (Auto) 0.1, Neutrophils # (Auto) 11.7H, Lymphocytes # (Auto) 0.6L, Monocytes # (Auto) 0.9H, Eosinophils # (Auto) 0.0, Basophils # (Auto) 0.0, Nucleated Red Blood Cells % (auto) 0.0, Anion Gap 4L, Glomerular Filtration Rate > 60.0, Blood Urea Nitrogen 7, Creatinine 0.42L, Sodium Level 134L, Potassium Level 4.0, Chloride Level 98, Carbon Dioxide Level 32, Calcium Level 7.4L CBC/BMP Laboratory Tests 01/26/19 06:05 Red Blood Count 2.78 L, Mean Corpuscular Volume 94.2, Mean Corpuscular Hemoglobin 30.6, Mean Corpuscular Hemoglobin Concent 32.4, Red Cell Distribution Width 15.3 H, Neutrophils (%) (Auto) 88.3 H, Lymphocytes (%) (Auto) 4.4 L, Monocytes (%) (Auto) 6.6 H, Eosinophils (%) (Auto) 0.0, Basophils (%) (Auto) 0.1, Neutrophils # (Auto) 11.7 H, Lymphocytes # (Auto) 0.6 L, Monocytes # (Auto) 0.9 H, Eosinophils # (Auto) 0.0, Basophils # (Auto) 0.0, Calcium Level 7.4 L Discharge Medications Scheduled Aspirin (Aspir 81) 81 Mg Tablet.dr, 1 TAB PO DAILY for pain, (Reported) Fluticasone Furoate (Arnuity Ellipta) 200 Mcg/Act Inh, 200 MCG INH DAILY, (Reported) Folic Acid (Folic Acid) 0.4 Mg Tablet, 800 MCG PO DAILY, (Reported) Potassium Chloride (Klor-Con M10) 10 Meq Tab.er.prt, 40 MEQ PO BID Prednisone (Prednisone) 20 Mg Tablet, 20 MG PO DAILY Taper dose, 20mg po q day for 5 days, 1/2 tab po q day 5 days then stop Ranitidine HCl (Ranitidine HCl) 150 Mg Tablet, 150 MG PO QHS, (Reported) Umeclidinium Brm/Vilanterol Tr (Anoro Ellipta 62.5-25 Mcg INH) 1 Each Blst.w.de v, 1 INH INH DAILY, (Reported) Scheduled PRN Acetaminophen (Tylenol Extra Strength) 500 Mg Tablet, 500 MG PO Q4H PRN for PAIN, (Reported) Albuterol Sulfate (Ventolin Hfa) 108 Mcg/Act Aer, 2 PUFFS INH QID PRN for SHORTNESS OF BREATH, (Reported) Ondansetron HCl (Ondansetron HCl) 8 Mg Tablet, 8 MG PO Q6H PRN for NAUSEA OR VOMITING Prochlorperazine Maleate (Prochlorperazine Maleate) 10 Mg Tablet, 10 MG PO Q8H PRN for NAUSEA OR VOMITING Allergies Coded Allergies: cefaclor (Verified Allergy, Unknown, 10/12/18) sulfamethoxazole (Verified Allergy, Unknown, swelling, 10/12/18) trimethoprim (Verified Allergy, Unknown, swelling, 10/12/18) amoxicillin (Verified Adverse Reaction, Unknown, n/v, 10/12/18) clavulanic acid (Verified Adverse Reaction, Unknown, n/v, 10/12/18) omeprazole (Verified Adverse Reaction, Unknown, back and abdominal pain, 10/12/18) SAMIRA HUMPHRIES Jan 26, 2019 13:03
== END 2019-01-26 14:06 | disposition home or self-care (01) | DRG 388 ==
LOC: M ED 21:21 → M ED INP 23:52 → M PCU 01-12 04:19 → OBSVTOIN 01-14 10:17 → M MSPAV 01-14 14:05
PROVIDERS: ADMIT Internal Medicine; ATTEND Family Medicine
DX: K56.600 Partial intestinal obstruction, unspecified as to cause (principal); J69.0 Pneumonitis due to inhalation of food and vomit; J44.1 Chronic obstructive pulmonary disease with (acute) exacerbation; C34.90 Malignant neoplasm of unspecified part of unspecified bronchus or lung; N17.9 Acute kidney failure, unspecified; J90 Pleural effusion, not elsewhere classified; K52.1 Toxic gastroenteritis and colitis; T45.1X5A Adverse effect of antineoplastic and immunosuppressive drugs, initial encounter; R74.0 Nonspecific elevation of levels of transaminase and lactic acid dehydrogenase [LDH]; D64.9 Anemia, unspecified; R33.9 Retention of urine, unspecified; N13.9 Obstructive and reflux uropathy, unspecified; Z90.49 Acquired absence of other specified parts of digestive tract; D69.6 Thrombocytopenia, unspecified; K21.9 Gastro-esophageal reflux disease without esophagitis; Z99.81 Dependence on supplemental oxygen; Z90.710 Acquired absence of both cervix and uterus; Z79.82 Long term (current) use of aspirin; Z79.899 Other long term (current) drug therapy; Z88.0 Allergy status to penicillin; Z88.2 Allergy status to sulfonamides; Z88.8 Allergy status to other drugs, medicaments and biological substances; Z88.1 Allergy status to other antibiotic agents; Z87.891 Personal history of nicotine dependence

== ENCOUNTER → 2019-02-22 | Outpatient (CLI) | payer OTHER ==
[~2019-02-22] MED LIST changes: +GASTROGRAFIN SOLUTION 30ML (Q9963) As Ordered ONE; +ISOVUE-370 76% 100ML VIAL (Q9967) As Ordered ONE; +KLOR10TA76 PO; +PRED20TA PO
--- NOTE | 2019-02-23 05:41 | REP ---
Clinical: Non-small cell lung cancer for staging. Technique: Axial contrast enhanced images from the thoracic inlet to the upper abdomen with coronal and sagittal re-formations using 100 ml Isovue 370 intravenous contrast material. Comparison: 12/24/2018. Findings: Severe, advanced COPD/emphysematous changes along with scattered scarring again identified and unchanged. There is considerably decreased/ nearly resolved soft tissue in the right perihilar/suprahilar lung zone and right upper lobe as compared with prior examination. Decreased hilar/mediastinal adenopathy is also noted with a single precarinal lymph node now identified measuring approximately 11 mm short axis diameter and previously measuring approximately 17 mm. Two noncalcified nodules in the periphery of the left lower lobe (image 70, 89) remain unchanged. No new area of consolidation or mass. No effusion. No pneumothorax. Mediastinum demonstrates normal stable appearance to the thoracic aorta, pulmonary vasculature and heart/pericardium (small pericardial effusion unchanged). Chronic compression deformity of T12 is again identified. No obvious further osseous abnormality noted. Impression: 1. Considerably decreased and nearly resolved soft tissue involving the right perihilar/suprahilar region and right upper lobe. No new area of consolidation or mass identified and previously noted lymph nodes decreased. Electronically Signed by Cheng Islas MD 02/23/2019 05:32 A
--- NOTE | 2019-02-23 05:50 | REP ---
Clinical: Staging non-small cell lung cancer. Technique: Axial contrast enhanced images from the lung bases to the pubic symphysis using oral (per protocol) and 100 ml Isovue 370 intravenous contrast material with coronal and sagittal re-formations. Comparison: 01/17/2019. Findings: Liver, spleen, pancreas, and bilateral adrenal glands are normal. The patient is known to be status post cholecystectomy with normal compensatory biliary ductal dilatation. Right kidney demonstrates stable mild cortical scarring and 1 cm lower pole simple cyst. The left kidney includes stable 4.5 cm simple cyst. Evaluation of the enteric system demonstrates diffuse fluid-filled dilatation to the small bowel with few normal caliber of loops of distal ileum noted in the right lower abdomen along with normal collapse appearance to the colon. These findings are relatively similar to prior examination and should be correlated clinically. Sigmoid diverticulosis noted without acute diverticulitis. Evaluation of the pelvis demonstrates normal bladder and evidence of prior hysterectomy. No ascites. No free air. No intra-abdominal or retroperitoneal adenopathy. No obvious abdominopelvic mass lesion or metastatic disease noted. Impression: 1. Likely chronic fluid-filled distension to the small bowel unchanged from prior examination. 2. Stable renal cysts and mild right renal cortical scarring unchanged. 3. Sigmoid diverticula without acute diverticulitis. 4. No acute adenopathy, ascites, evidence for mass lesion or metastatic disease. Electronically Signed by Cheng Islas MD 02/23/2019 05:41 A
== END ==
LOC: M RAD 14:12
PROVIDERS: ATTEND Internal Medicine Medical Oncology
DX: C34.90 Malignant neoplasm of unspecified part of unspecified bronchus or lung (principal); N28.1 Cyst of kidney, acquired
CPT/HCPCS: 71260; 74177; Q9963; Q9967

== ENCOUNTER → 2019-05-17 | Outpatient (CLI) | payer OTHER ==
--- NOTE | 2019-05-17 14:53 | REP ---
CT CHEST WITH IV CONTRAST: TECHNIQUE: Axial contrast enhanced images from the thoracic inlet to the upper abdomen using 100 mL Isovue 370 intravenous contrast material with multiplanar reformations. COMPARISON: 02/22/2019. Extensive emphysematous changes are again noted bilaterally diffusely. Significant bullous change is again seen in both upper lobes, more so on the right. Right hilar soft tissue density continues to improve with mild residual. 5 mm subpleural nodule in the left lower lobe remains stable compared to a prior study of 12/24/2018. No new suspicious nodules are seen. There is some mild fibroatelectatic change in the left costophrenic angle. There is no new mediastinal, hilar, or chest wall lymphadenopathy. There is a tiny amount of pericardial fluid or thickening which is stable. IMPRESSION: Right hilar soft tissue density continues to improve with mild residual. Otherwise stable. Electronically Signed by Jamie Freeman MD 05/18/2019 03:55 P
--- NOTE | 2019-05-17 14:56 | REP ---
CT ABDOMEN AND PELVIS WITH ORAL AND IV CONTRAST: TECHNIQUE: Axial contrast enhanced images from the lung bases to the pubic symphysis using 100 mL Isovue 370 intravenous contrast material with multiplanar reformations. COMPARISON: 02/22/2019 No mass is seen in the liver. The patient has had a prior cholecystectomy. Prominent common bile duct is stable. Spleen is normal in size with no intrinsic abnormality. The adrenal glands demonstrate no mass. There is no mass in the pancreas. There is a tiny subcentimeter cyst in the lower pole of the right kidney. There is a cyst of the upper pole of the left kidney, which is unchanged, measuring approximately 4.9 cm in diameter. There is no hydronephrosis bilaterally. There is atherosclerotic calcification of the abdominal aorta without aneurysm. I see no adenopathy, free air, or free fluid. No bowel wall thickening is seen. Sigmoid diverticulosis is again noted. Small cystic structure of the right ovary is stable measuring 2 cm in diameter. Urinary bladder is mildly distended and appears unremarkable. There are degenerative changes of the spine, with a curvature of the thoracolumbar spine convex to the right. There is a stable compression deformity of T12. IMPRESSION: No acute abnormalities, as discussed above, with no change since study of 02/22/2019. Electronically Signed by Jamie Freeman MD 05/18/2019 03:56 P
== END ==
LOC: M RAD 11:22
PROVIDERS: ATTEND Internal Medicine Medical Oncology
DX: C34.90 Malignant neoplasm of unspecified part of unspecified bronchus or lung (principal)

== ENCOUNTER → 2019-08-09 | Outpatient (REF) | payer OTHER ==
[~2019-08-09] MED LIST changes: -GASTROGRAFIN SOLUTION 30ML (Q9963) As Ordered ONE; -ISOVUE-370 76% 100ML VIAL (Q9967) As Ordered ONE; +ONDA8TAB10 PO; -ONDA8TAB7 PO
[2019-08-09 17:01] LABS: BASO % 0.3 % (0.0-1.0); EOS # 0.1 10^3/uL (0.0-0.5); EOS % 1.6 % (0.0-3.0); HEMATOCRIT 40.5 % (36.0-47.0); HEMOGLOBIN 13.2 g/dl (12.0-15.5); LYMPH # 2.3 10^3/uL (1.5-5.0); LYMPH % 32.3 % (24.0-44.0); MEAN CORPUSCULAR HEMOGLOBIN 30.4 pg (27.0-33.0); MEAN CORPUSCULAR HGB CONC 32.6 g/dl (32.0-36.5); MEAN CORPUSCULAR VOLUME 93.3 fl (80.0-96.0); MONO # 0.6 10^3/uL (0.0-0.8); MONO % 8.7 % (0.0-5.0); NEUTROPHILS % 56.8 % (36.0-66.0); PLATELET COUNT, AUTOMATED 370 10^3/uL (150-450); RED BLOOD COUNT 4.34 10^6/uL (4.00-5.40); WHITE BLOOD COUNT 7.1 10^3/uL (4.0-10.0)
[2019-08-09 17:09] LABS: ALBUMIN 4.2 GM/DL (3.2-5.2); ALT/SGPT 17 U/L (12-78); BILIRUBIN,TOTAL 0.2 MG/DL (0.2-1.0); BLOOD UREA NITROGEN 16 MG/DL (7-18); CALCIUM LEVEL 8.9 MG/DL (8.8-10.2); CARBON DIOXIDE LEVEL 29 MEQ/L (21-32); CHLORIDE LEVEL 106 MEQ/L (98-107); CREATININE FOR GFR 0.75 MG/DL (0.55-1.30); GLOMERULAR FILTRATION RATE > 60.0 (>45); GLUCOSE, FASTING 52 MG/DL (70-100); POTASSIUM SERUM 4.3 MEQ/L (3.5-5.1); SODIUM LEVEL 140 MEQ/L (136-145); TOTAL PROTEIN 7.4 GM/DL (6.4-8.2)
== END ==
LOC: M LABDRAWC 16:03
PROVIDERS: ATTEND Internal Medicine Medical Oncology
DX: C95.90 Leukemia, unspecified not having achieved remission (principal)

== ENCOUNTER → 2019-08-11 | Outpatient (CLI) | payer OTHER ==
[~2019-08-11] MED LIST changes: +ISOVUE-370 76% 100ML VIAL (Q9967) As Ordered ONE
--- NOTE | 2019-08-12 05:09 | REP ---
Clinical: Non-small cell lung cancer. Technique: Axial contrast enhanced images from the thoracic inlet to the upper abdomen with coronal and sagittal re-formations. Comparison: Multiple CT examinations between 05/07/2019 and 12/15/2015. Findings: Subtle residual soft tissue in the mediastinum and right hilum remains relatively stable as compared to most recent prior examination dated 05/17/2019 and is obviously considerably improved as compared with 09/14/2018 and 12/24/2018 examinations. No new acute consolidation, significant nodule or mass lesion. No effusion. Advanced COPD/emphysematous changes with significant bullous disease, bronchiectasis and scarring again noted. 4 mm noncalcified nodule along the periphery of the left lower lobe (image 69) and 8 mm noncalcified density along the lateral aspect of the deep lateral left lower lobe (image 89) are again identified and appear relatively similar as compared to 12/2015. Smaller scattered noncalcified nodules up to approximately 3 mm are also identified and appear relatively similar to prior examination. Musculoskeletal structures demonstrate chronic stable changes without acute process. Limited upper abdomen demonstrates normal bilateral adrenal glands and stable 4.3 cm left renal cyst. Impression: 1. Residual soft tissue in the mediastinum and right hilum remains stable compared to recent prior examination. No new areas of soft tissue, consolidation, mass lesion, or effusion noted. No obvious new adenopathy. 2. Stable chronic changes. Electronically Signed by Cheng Islas MD 08/12/2019 05:00 A
== END ==
LOC: M RAD 09:39
PROVIDERS: ATTEND Internal Medicine Medical Oncology
DX: C34.90 Malignant neoplasm of unspecified part of unspecified bronchus or lung (principal)
CPT/HCPCS: 71260; Q9967

== ENCOUNTER → 2019-10-28 | Outpatient (CLI) | payer OTHER ==
[~2019-10-28] MED LIST changes: +ARNU1INH3 PO; +BUDE0.5S6 NEB; -ISOVUE-370 76% 100ML VIAL (Q9967) As Ordered ONE; +SPIR12.9 INH
--- NOTE | 2019-10-28 13:33 | REPMRS ---
Patient History The patient states she has not had a clinical breast exam in over a year. Family history of breast cancer at age 50 or over in maternal cousin. Digital Woman Screen Mammo: October 28, 2019 - Exam #: [id number] Bilateral CC and MLO view(s) were taken. Technologist: Yolis Stratton, Technologist Prior study comparison: April 22, 2014, digital woman screen mammo performed at [facility] [place]. FINDINGS: The breast tissue is heterogeneously dense. This may lower the sensitivity of mammography. The Volpara volumetric breast density category is: C. There is a moderate amount of heterogeneously dense fibroglandular tissue which is fairly symmetric. There is no interval development of dominant mass, architectural distortion, or grouped microcalcification typical of malignancy. There has been no change in the appearance of the mammogram from the prior studies. 3-D tomosynthesis shows no additional findings. Assessment: BI-RADS/ACR category 1 mammogram. Negative Mammogram. Recommendation Routine screening mammogram of both breasts in 1 year (for women over age 40). This patient's Lifetime Breast Cancer RIsk is estimated at 4.8 %. This mammogram was interpreted with the aid of an FDA-approved computer-aided dectection system. Electronically Signed By: Je Costello MD 10/28/19 [id number]
== END ==
LOC: M WHC 12:41
PROVIDERS: ATTEND Nurse Practitioner Family
DX: Z12.31 Encounter for screening mammogram for malignant neoplasm of breast (principal); Z80.3 Family history of malignant neoplasm of breast

== ENCOUNTER → 2020-02-16 | Outpatient (CLI) | payer OTHER ==
[~2020-02-16] MED LIST changes: -ASPI81TA85 PO; +ASPI81TA86 PO; +GASTROGRAFIN SOLUTION 30ML (Q9963) As Ordered ONE; +ISOVUE-370 76% 100ML VIAL As Ordered ONE
--- NOTE | 2020-03-02 09:24 | REP ---
CONTRAST ENHANCED CHEST CT CLINICAL: Follow-up lung cancer. COMPARISON: 08/11/2019, 05/17/2019. FINDINGS: Advanced marked chronic obstructive pulmonary disease (COPD)/emphysematous changes with large scattered bullae and chronic scarring remain essentially unchanged. A 4-mm noncalcified nodule along the periphery of the left lower lobe (Image 70), as well as an 8-mm nodule in the lateral deep left sulcus (Image 89), remain stable. No new consolidation, significant nodule, or mass appreciated. No effusion or pneumothorax. Tracheobronchial tree is patent. No new adenopathy. Further evaluation of the mediastinum demonstrates stable thoracic aorta and no evidence for cardiomegaly or pericardial effusion. Atherosclerotic change is noted. Surrounding musculoskeletal structures demonstrate age-related changes without acute osseous abnormality. IMPRESSION: * Advanced chronic obstructive pulmonary disease (COPD)/emphysematous changes with marked scattered bullae and scarring. Stable noncalcified nodules in the left lower lobe. * No acute mediastinal or pleural parenchymal process. No evidence for neoplasm/recurrence or metastatic disease. MTDD
--- NOTE | 2020-03-02 09:25 | REP ---
CONTRAST ENHANCED CT OF THE ABDOMEN AND PELVIS: 02/16/20 CLINICAL: Lung cancer follow-up. COMPARISON: 05/17/19. TECHNIQUE: Axial contrast enhanced images from the lung bases to the public symphysis using oral (per protocol) and 100cc Isovue 370 intravenous contrast material with coronal and sagittal reformations. FINDINGS: The liver demonstrates compensatory biliary ductal dilation secondary to prior cholecystectomy. No focal hepatic lesions are identified. Spleen, pancreas, and bilateral adrenal glands are normal. The right kidney demonstrates stable chronic cortical scarring and small cyst while the left kidney demonstrates stable simple 0.5cm cyst. The enteric system is without obstruction or acute inflammatory process sigmoid diverticulosis noted without acute diverticulitis. The pelvis demonstrates normal bladder and evidence for prior hysterectomy. Stable chronic right ovarian cyst again noted and unchanged. No ascites. No free air. No adenopathy. No abdominal pelvis mass lesion. Small 1.5cm periumbilical hernia noted. Abdominal aorta and vasculature demonstrate atherosclerotic changes without aneurysm or dissection. Musculoskeletal structures demonstrate age related degenerative changes and chronic dextroconvex scoliosis without acute osseous abnormality. IMPRESSION: 1. Stable left renal cyst and mild right renal cortical scarring. 2. Colonic diverticulosis without acute diverticulitis. 3. No further acute abdominal pelvic pathology appreciated. Chronic changes as noted above. MTDD
== END ==
LOC: M RAD 11:32
PROVIDERS: ATTEND Internal Medicine Medical Oncology
DX: C34.90 Malignant neoplasm of unspecified part of unspecified bronchus or lung (principal); J44.9 Chronic obstructive pulmonary disease, unspecified; R91.1 Solitary pulmonary nodule; N28.1 Cyst of kidney, acquired; K57.30 Diverticulosis of large intestine without perforation or abscess without bleeding
CPT/HCPCS: 71260; 74177; Q9963; Q9967

== ENCOUNTER → 2020-07-06 | Outpatient (CLI) | payer MEDICARE ==
[~2020-07-06] MED LIST changes: +ASPI81CH33 PO; +CLAR10CA3 PO; -FOLI0.4T PO; +FOLI0.4T5 PO
--- NOTE | 2020-07-06 11:09 | REP ---
INDICATION: LUNG CA, ADEMACARCINOMA OF LUNG. COMPARISON: Comparison is made with prior chest CT study from February 16, 2020.. TECHNIQUE: Helical scanning is acquired following the intravenous injection of 100 mL of Isovue 370. 3 mm axial images re-formatted. Coronal and sagittal MPR images are provided. FINDINGS: There are advanced changes of emphysema and COPD. Particularly in the upper lobes. Large avascular air spaces are again seen bilaterally right more so than left unchanged. Emphysematous changes are noted in the upper lobes as well. There are few scattered stable calcified and noncalcified subcentimeter pulmonary nodules. The largest of these is a 6 mm nodule in the right middle lobe. This is unchanged. There is a new 4 mm noncalcified nodular density in the left lower lobe projecting on page 83 of 109 in series 204 of today's study. This was not present previously. No lung mass or new infiltrate is seen. No pleural or pericardial effusion is seen. No hilar or mediastinal mass or adenopathy is observed. Postthoracotomy changes are noted along the right upper posterolateral chest wall. There is no evidence of aortic dissection or aneurysm. Ascending aorta measures 3.5 cm in AP dimension. No filling defect is seen in the pulmonary arterial tree to suggest pulmonary embolus. Normal adrenal glands are seen. There is a cyst in the upper pole left kidney. The gallbladder is surgically absent. There is an S-shaped thoracic scoliotic curve and chronic mild wedging is seen at the T12 vertebral body. IMPRESSION: Advanced COPD changes. There are scattered stable subcentimeter pulmonary nodules. A new 4 mm noncalcified nodular density is seen in the left lower lobe. Continued follow-up is advised. <Electronically signed by Je Costello > 07/06/20 [id number]
--- NOTE | 2020-07-06 11:13 | REP ---
INDICATION: LUNG CA, ADEMACARCINOMA OF LUNG. COMPARISON: Comparison CT study abdomen pelvis February 16, 2020.. TECHNIQUE: Helical scanning is acquired and 3 mm axial images re-formatted. Coronal and sagittal MPR images are generated. The CT contrast enhancement dose is 100 mL of intravenous Isovue 370. Oral contrast was also administered. FINDINGS: Preliminary digital core manager radiograph shows surgical clips in right upper quadrant and dextroconvex lumbar scoliosis. The liver and spleen are normal in size homogeneous in texture. Gallbladder surgically absent. There is a descending duodenal diverticulum. The common bile duct measures 10 mm which is the upper range of normal post cholecystectomy. It is unchanged. No abnormality is noted in the pancreas. There is a stable simple cyst in the upper pole of the left kidney measuring 5.0 cm in greatest oblique dimension. No hydronephrosis is seen. No retroperitoneal mass or adenopathy is observed. Oral contrast labeled borderline caliber small bowel loops are again seen without obstructive lesion. There is extensive diverticulosis in the left colon without CT evidence of diverticulitis. Urinary bladder is intact. There is a small cystic area in the right ovary unchanged from the prior study and measuring 1.4 cm. The uterus is surgically absent. No abdominal wall defect is seen. No bony destructive lesion is seen. IMPRESSION: No mass or adenopathy noted. Post cholecystectomy and hysterectomy. Stable left renal cyst. <Electronically signed by Je Costello > 07/06/20 [id number]
== END ==
LOC: M RAD 08:31
PROVIDERS: ATTEND Internal Medicine Medical Oncology
DX: C34.90 Malignant neoplasm of unspecified part of unspecified bronchus or lung (principal); J43.9 Emphysema, unspecified; R91.8 Other nonspecific abnormal finding of lung field
CPT/HCPCS: 71260; 74177; Q9963; Q9967

== ENCOUNTER → 2020-09-21 | Outpatient (CLI) | payer MEDICARE ==
[~2020-09-21] MED LIST changes: -GASTROGRAFIN SOLUTION 30ML (Q9963) As Ordered ONE; -ISOVUE-370 76% 100ML VIAL As Ordered ONE
--- NOTE | 2020-09-21 12:20 | REP ---
INDICATION: LEFT ANTERIOR KNEE PAIN COMPARISON: 03/17/2015 TECHNIQUE: AP, lateral, bilateral oblique and sunrise views. FINDINGS: Generalized age-related osteopenia is appreciated. Mild age-related osteoarthritic degenerative changes are noted including subtle increased sclerosis along the tibial surface and posterior patellar surface as well as sclerotic changes and fraying along the anterior patellar margin. These findings appear relatively similar to prior examination. No acute fracture or dislocation. IMPRESSION: Age-related osteopenia and arthritic degenerative changes. Findings are relatively similar to prior examination. <Electronically signed by Cheng Islas > 09/21/20 [id number]
== END ==
LOC: M CLY 11:50
PROVIDERS: ATTEND Nurse Practitioner Family
DX: M85.88 Other specified disorders of bone density and structure, other site (principal); M17.12 Unilateral primary osteoarthritis, left knee; M25.562 Pain in left knee

== ENCOUNTER → 2020-11-03 | Outpatient (CLI) | payer MEDICARE ==
[~2020-11-03] MED LIST changes: +ISOVUE-370 76% 100ML VIAL As Ordered ONE
--- NOTE | 2020-11-03 15:28 | REP ---
INDICATION: FOLLOW UP LUNG CA COMPARISON: 07/06/2020 TECHNIQUE: Axial contrast enhanced images from the thoracic inlet to the upper abdomen with coronal and sagittal reformations using 75 ml Isovue 370 intravenous contrast material. This CT examination was performed using the following dose reduction techniques: Automated exposure control, adjustment of mA and/or kv according to the patient's size, and use of iterative reconstruction technique. FINDINGS: Advanced COPD/emphysematous changes with scattered scarring and scattered stable nodular densities are again noted and unchanged. The recently identified new nodule in the left lower lobe on 07/06/2020 examination has resolved and likely represented small focus of atelectasis. No new acute consolidation, significant nodule or mass. No effusion. No pneumothorax. Tracheobronchial tree is stable. Mediastinum demonstrates stable thoracic aorta, pulmonary vasculature, and heart/pericardium. No significant adenopathy. Surrounding musculoskeletal structures are intact. IMPRESSION: 1. Advanced COPD/emphysematous changes with scattered scarring and stable nodules. 2. No acute mediastinal or pleuroparenchymal process appreciated. <Electronically signed by Cheng Islas > 11/03/20 [id number]
== END ==
LOC: M RAD 13:05
PROVIDERS: ATTEND Internal Medicine Medical Oncology
DX: J43.9 Emphysema, unspecified (principal)
CPT/HCPCS: 71260; Q9967

== ENCOUNTER 2020-11-21 11:27 | Observation (INO) | payer MEDICARE ==
[~2020-11-21] VITALS: Ht 157.5 cm; Wt 55.5 kg
[~2020-11-21 11:27] MED LIST changes: -DOXY100C37 PO; +DOXY1CAP62 PO; -ISOVUE-370 76% 100ML VIAL As Ordered ONE
--- NOTE | 2020-11-21 12:02 | REP ---
INDICATION: abdominal pain. COMPARISON: 12/27/2019 the latest prior FINDINGS: The technique utilized in obtaining the radiograph has magnified the cardiac silhouette and accentuated the interstitial markings. The superior mediastinal structures are midline. The cardiac silhouette is unremarkable in size, shape, and position. The diaphragmatic surfaces of the lungs are flattened, and the costophrenic angles are chronically blunted. Chronic bullous emphysematous changes are again seen in the lung kirby and in a stable appearance.. There is lung field hyperexpansion which is stable. The imaged osseous structures are intact. There is an air density beneath the diaphragmatic surface of the right lung likely within the bowel. IMPRESSION: There is no acute cardiopulmonary disease. Chronic changes as described above. Air density beneath the diaphragmatic surface of the right lung likely within the bowel, however, if free intraperitoneal air is of clinical concern then CT of the abdomen is recommended <Electronically signed by Tr Bravo > 11/21/20 [id number]
[2020-11-21 12:20] LABS: BASO % 0.2 % (0.0-1.0); EOS # 0.1 10^3/uL (0.0-0.5); EOS % 0.8 % (0.0-3.0); HEMATOCRIT 38.1 % (36.0-47.0); HEMOGLOBIN 12.5 g/dl (12.0-15.5); LYMPH # 1.1 10^3/uL (1.5-5.0); LYMPH % 12.1 % (24.0-44.0); MEAN CORPUSCULAR HEMOGLOBIN 30.8 pg (27.0-33.0); MEAN CORPUSCULAR HGB CONC 32.8 g/dl (32.0-36.5); MEAN CORPUSCULAR VOLUME 93.8 fl (80.0-96.0); MONO # 0.7 10^3/uL (0.0-0.8); MONO % 7.5 % (2.0-8.0); NEUTROPHILS # 7.5 10^3/uL (1.5-8.5); NEUTROPHILS % 79.1 % (36.0-66.0); PLATELET COUNT, AUTOMATED 333 10^3/uL (150-450); RED BLOOD COUNT 4.06 10^6/uL (4.00-5.40); WHITE BLOOD COUNT 9.5 10^3/uL (4.0-10.0)
[2020-11-21 12:50] LABS: ALBUMIN 3.7 GM/DL (3.2-5.2); ALT/SGPT 32 U/L (12-78); BILIRUBIN,DIRECT 0.1 MG/DL (0.0-0.2); BILIRUBIN,TOTAL 0.3 MG/DL (0.2-1.0); BLOOD UREA NITROGEN 9 MG/DL (7-18); CALCIUM LEVEL 9.2 MG/DL (8.8-10.2); CARBON DIOXIDE LEVEL 23 MEQ/L (21-32); CHLORIDE LEVEL 101 MEQ/L (98-107); CK-MB VALUE MASS < 1.0 NG/ML (<3.6); CPK CREATINE PHOSPHOKINASE 91 U/L (26-192); GLOMERULAR FILTRATION RATE > 60.0 (>45); GLUCOSE, FASTING 87 MG/DL (70-100); LIPASE 74 U/L (73-393); POTASSIUM SERUM 3.9 MEQ/L (3.5-5.1); SODIUM LEVEL 135 MEQ/L (136-145); TOTAL PROTEIN 7.5 GM/DL (6.4-8.2); TROPONIN I < 0.02 NG/ML (< 0.10)
[2020-11-21] MEDS: GASTROGRAFIN SOLUTION 30ML PO SCH ×2 (12:54→13:31)
[2020-11-21] MEDS ORDERED: ISOVUE-370 76% 100ML VIAL As Ordered ONE (14:02)
--- NOTE | 2020-11-21 14:51 | REP ---
INDICATION: SBO. COMPARISON: 07/06/2020 the latest prior with other older priors also reviewed TECHNIQUE: Standard helical technique after the intravenous administration of 100 cc Isovue 370 and oral bowel preparatory contrast administration. FINDINGS: Rather marked chronic emphysematous changes are seen in the lung bases unchanged from prior chest CT 11/03/2020 The liver, spleen, pancreas, adrenal glands, and kidneys are unchanged. There is an unchanged left renal cyst. The abdominal aorta and para-aortic regions are again seen to be within normal limits. There is no evidence of free fluid or free air. There is no evidence of a mass or adenopathy. Multiple dilated contrast and gas-filled small bowel loops are seen in the abdomen with multiple gas and fluid-filled dilated small bowel loops in the pelvis. There is thickening of the arevalo of the sigmoid colon with fatty infiltration. This represents a change from the prior exam. There is no evidence of a mass or adenopathy. Bone window technique throughout the examination shows no significant change in appearance of the osseous structures. IMPRESSION: 1. There is sigmoid colon diverticulitis with a reactive small bowel ileus or partial small bowel obstruction. 2. Unchanged Bosniak class 1 left renal cyst. 3. Stable rather marked appearing emphysematous changes in the lung bases. 4. Other findings as described above. <Electronically signed by Tr Bravo > 11/21/20 [id number]
[2020-11-21] MEDS ORDERED: CIPROFLOXACIN 400 MG in IV 1 EA IV ONE (15:15)
[2020-11-21] MEDS ORDERED: metroNIDAZOLE 500 MG in IV 1 EA IV ONE (15:15)
[2020-11-21] MEDS ORDERED: FOLI800C PO (15:48)
[2020-11-21] MEDS ORDERED: LORA-622 PO (15:48)
[2020-11-21 16:33] LABS: RSV AMPLIFICATION NEGATIVE (NEGATIVE)
--- NOTE | 2020-11-21 17:46 | HPEPDOC ---
General Date of Admission Nov 21, 2020 at 11:28 Date of Service: Nov 21, 2020 Chief Complaint The patient is a 65-year-old female admitted with a reason for visit of Diverticulitis. History of Present Illness 65-year-old female with COPD, chronic hypoxic respiratory failure, lung cancer, being observed, refused chemotherapy and immunotherapy, Recurrent diverticulitis, presented to the ED with them 2 days history of abdominal pain and diarrhea. She denied any fever or chills and denied any nausea or vomiting. . She reports that she had a lyons salad at on Friday , then from Friday she started having abdominal pain in the left lower quadrant, constant, sharp, 6-8/ 10 in intensity and started having diarrhea also. She did not eat much yesterday thinking that it could take care of the pain and the diarrhea, however, it didn't resolve, so came to the emergency room. CT abdomen and pelvis: Multiple dilated contrast and gas-filled small bowel loops are seen in the abdomen with multiple gas and fluid-filled dilated small bowel loops in the pelvis. There is thickening of the arevalo of the sigmoid colon with fatty infiltration. The findings are suggestive of Sigmoid diverticulitis with reactive small bowel ileus or partial small bowel obstruction. She was admitted for Sigmoid divertic ulitis and small bowel ileus. Home Medications Scheduled Aspirin (Aspirin) 81 Mg Tab.chew, 81 MG PO DAILY, (Reported) Ciprofloxacin HCl (Cipro) 500 Mg Tablet, 500 MG PO Q12H Fluticasone Furoate (Arnuity Ellipta) 200 Mcg Blst.w.dev, 1 PUFF PO DAILY, (Reported) Folic Acid (Folic Acid) 0.8 Mg Capsule, 800 MCG PO DAILY, (Reported) Loratadine (Loratadine) 10 Mg Tablet, 10 MG PO DAILY, (Reported) Metronidazole (Flagyl) 500 Mg Tablet, 500 MG PO Q8H Umeclidinium Brm/Vilanterol Tr (Anoro Ellipta 62.5-25 Mcg INH) 1 Each Blst.w.dev, 1 INH INH DAILY, (Reported) Scheduled PRN Albuterol Sulfate (Ventolin Hfa) 108 Mcg/Act Aer, 2 PUFFS INH QID PRN for SHORTNESS OF BREATH, (Reported) Allergies Coded Allergies: cefaclor (Verified Allergy, Unknown, 10/12/18) sulfamethoxazole (Verified Allergy, Unknown, swelling, 10/12/18) trimethoprim (Verified Allergy, Unknown, swelling, 10/12/18) amoxicillin (Verified Adverse Reaction, Unknown, n/v, 10/12/18) clavulanic acid (Verified Adverse Reaction, Unknown, n/v, 10/12/18) omeprazole (Verified Adverse Reaction, Unknown, back and abdominal pain, 10/12/18) Past Medical History Medical History Unresectable Stage III B, PD-L1 high, adenocarcinoma of lung diagnosed September 2018 s/p 2 cycles of chemotherapy . patietn declined further chemotherapy or immunotherapy. End stage COPD/ Emphysema Chronic hypoxic respiratory failure Recurrent diverticulitis HTN Allergic rhinitis Surgical History CARPAL TUNNEL RELEASE (L) ELBOW SURGERY(R) CHOLECYSTECTOMY PARTIAL HYSTERECTOMY LESION REMOVAL BX NEGATIVE Family History Her father had lung cancer. A sister had lung cancer. Mother : CVA Maternal Cousin : Breast cancer Social History * Smoker: former Smoker (Quit 2011) A-FIB/CHADSVASC A-FIB History Current/History of A-Fib/PAF?: No Review of Systems Constitutional: Denies: Chills, Fever, Night Sweats Eyes: Denies: Pain, Vision change ENT: Denies: Head Aches, Ear Pain, Dysphagia Skin: Denies: Rash, Lesions, Breakdown Pulmonary: Denies: Dyspnea, Cough Cardiovascular: Denies: Chest Pain, Palpitations, Orthopnea, Paroxysmal Noc. Dyspnea, Lt Headedness Gastrointestinal: Reports: Abdominal Pain, Diarrhea Genitourinary: Denies: Dysuria, Frequency, Incontinence, Retention Hematologic: Denies: Bruising, Bleeding Excessively Physical Examination General Exam: Positive: Alert, Cooperative, No Acute Distress Eye Exam: Positive: PERRLA, Conjunctiva & lids normal, EOMI; Negative: Sclera icteric ENT Exam: Positive: Atraumatic, Mucous membr. moist/pink, Pharynx Normal Neck Exam: Positive: Supple; Negative: JVD, thyromegaly Chest Exam: Positive: Clear to auscultation, Diminished (breath sounds overall) Heart Exam: Positive: Rate Normal, Regular Rhythm, Normal S1, Normal S2; Negative: Murmurs, Rubs Abdomen Exam: Positive: BS Hyperactive, Soft, Tenderness (left illiac fossa) Extremity Exam: Negative: Clubbing, Cyanosis, Edema Vital Signs Vital Signs Date Time Temp Pulse Resp B/P (MAP) Pulse Ox O2 Delivery O2 Flow Rate FiO2 6/22/21 16:45 95 164/81 (108) 96 Nasal Cannula 3.0 11/21/20 11:27 97.4 32 Laboratory Data Labs 24H Laboratory Tests 2 11/21/20 11:43: Immature Granulocyte % (Auto) 0.3, Neutrophils (%) (Auto) 79.1H, Lymphocytes (%) (Auto) 12.1L, Monocytes (%) (Auto) 7.5, Eosinophils (%) (Auto) 0.8, Basophils (%) (Auto) 0.2, Neutrophils # (Auto) 7.5, Lymphocytes # (Auto) 1.1L, Monocytes # (Auto) 0.7, Eosinophils # (Auto) 0.1, Basophils # (Auto) 0.0, Nucleated Red Blood Cells % (auto) 0.0, Anion Gap 11, Glomerular Filtration Rate > 60.0, Lact ic Acid Level 1.2, Calcium Level 9.2, Total Bilirubin 0.3, Direct Bilirubin 0.1, Aspartate Amino Transf (AST/SGOT) 18, Alanine Aminotransferase (ALT/SGPT) 32, Alkaline Phosphatase 93, Total Creatine Kinase 91, Creatine Kinase MB < 1.0, Creatine Kinase MB Relative Index 1.10, Troponin I < 0.02, Total Protein 7.5, Albumin 3.7, Albumin/Globulin Ratio 1.0L, Lipase 74 11/21/20 13:12: Urine Color YELLOW, Urine Appearance CLEAR, Urine pH 5.0, Urine Specific [place] 1.011, Urine Protein NEGATIVE, Urine Glucose (UA) NEGATIVE, Urine Ketones 1+H, Urine Blood 1+H, Urine Nitrite NEGATIVE, Urine Bilirubin NEGATIVE, Urine Urobilinogen 0.2, Urine Leukocyte Esterase 1+H, Urine WBC (Auto) 4H, Urine RBC (Auto) 2, Urine Hyaline Casts (Auto) 0, Urine Bacteria (Auto) 1+H, Urine Squamous Epithelial Cells 0, Urine Mucus (Auto) SMALL, Urine Sperm (Auto) 11/21/20 15:38: Coronavirus (COVID-19)(PCR) NEGATIVE, Influenza Type A (RT-PCR) NEGATIVE, Influenza Type B (RT-PCR) NEGATIVE, Respiratory Syncytial Virus (PCR) NEGATIVE CBC/BMP Laboratory Tests 11/21/20 11:43 Microbiology Microbiology 11/21/20 Urine Culture, Received Pending Assessment/Plan 65-year-old female with COPD, chronic hypoxic respiratory failure, lung cancer, being observed, refused chemotherapy and immunotherapy, Recurrent diverticulitis, presented to the ED with them 2 days history of abdominal pain and diarrhea. She denied any fever or chills and denied any nausea or vomiting. . She reports that she had a lyons salad at on Friday , then from Friday she started having abdominal pain in the left lower quadrant, constant, sharp, 6-8/ 10 in intensity and started having diarrhea also. She did not eat much yesterday thinking that it could take care of the pain and the diarrhea, however, it didn't resolve, so came to the emergency room. CT abdomen and pelvis: Multiple dilated contrast and gas-filled small bowel loops are seen in the abdomen with multiple gas and fluid-filled dilated small bowel loops in the pelvis. There is thickening of the arevalo of the sigmoid colon with fatty infiltration. The findings are suggestive of Sigmoid diverticulitis with reactive small bowel ileus or partial small bowel obstruction. She was admitted for Sigmoid diverticulitis and small bowel ileus. Sigmoid diverticulitis with small bowel ileus Give IV fluid, clear liquids by mouth. If tolerated, Cipro and Flagyl. COPD with chronic respiratory failure and hypoxia Not in any exacerbation Continue Symbicort and Spiriva in place of inhalers Oxygen supplementation Allergic rhinitis Continue Loratadine Lung cancer Not on any active treatment at this time Plan / VTE VTE Prophylaxis Ordered?: Yes JOANIE MARTINES MD Nov 21, 2020 17:46
[2020-11-21] MEDS: ALBUTEROL SULFATE 2.5 MG/0.5 ML INH NEB SOLN NEB PRN (18:41)
[2020-11-21] MEDS ORDERED: MORPHINE 2 MG/ML 1ML VIAL (J2270) IV ONE (19:45)
[2020-11-21 22:24] VITALS: BP 147/72
[2020-11-22] MEDS: metroNIDAZOLE 500 MG in IV 1 EA IV SCH ×3 (00:20→18:21)
[2020-11-22] MEDS: MORPHINE 2 MG/ML 1ML VIAL (J2270) IV PRN ×3 (00:20→20:56)
[2020-11-22] MEDS: CIPROFLOXACIN 400 MG in IV 1 EA IV SCH ×2 (05:18→17:04)
[2020-11-22 06:00] VITALS: BP 122/71
[2020-11-22 06:34] LABS: BASO % 0.1 % (0.0-1.0); EOS # 0.2 10^3/uL (0.0-0.5); EOS % 2.3 % (0.0-3.0); HEMATOCRIT 35.1 % (36.0-47.0); HEMOGLOBIN 11.4 g/dl (12.0-15.5); LYMPH # 1.2 10^3/uL (1.5-5.0); LYMPH % 16.5 % (24.0-44.0); MEAN CORPUSCULAR HEMOGLOBIN 30.3 pg (27.0-33.0); MEAN CORPUSCULAR HGB CONC 32.5 g/dl (32.0-36.5); MEAN CORPUSCULAR VOLUME 93.4 fl (80.0-96.0); MONO # 0.8 10^3/uL (0.0-0.8); MONO % 10.3 % (2.0-8.0); NEUTROPHILS # 5.1 10^3/uL (1.5-8.5); NEUTROPHILS % 70.5 % (36.0-66.0); PLATELET COUNT, AUTOMATED 322 10^3/uL (150-450); RED BLOOD COUNT 3.76 10^6/uL (4.00-5.40); WHITE BLOOD COUNT 7.3 10^3/uL (4.0-10.0)
[2020-11-22 06:54] LABS: BLOOD UREA NITROGEN 9 MG/DL (7-18); CALCIUM LEVEL 9.3 MG/DL (8.8-10.2); CARBON DIOXIDE LEVEL 28 MEQ/L (21-32); CHLORIDE LEVEL 102 MEQ/L (98-107); CREATININE FOR GFR 0.65 MG/DL (0.55-1.30); GLOMERULAR FILTRATION RATE > 60.0 (>45); GLUCOSE, FASTING 79 MG/DL (70-100); POTASSIUM SERUM 3.9 MEQ/L (3.5-5.1); SODIUM LEVEL 138 MEQ/L (136-145)
[2020-11-22] MEDS: TIOTROPIUM INHALER/CAPSULE (SPIRIVA) INH SCH (07:38)
[2020-11-22] MEDS: SYMBICORT 160/4.5MCG INHALER 6GM INH SCH ×2 (07:38→19:43)
[2020-11-22] MEDS: ALBUTEROL SULFATE 2.5 MG/0.5 ML INH NEB SOLN NEB PRN ×3 (07:42→19:43)
[2020-11-22] MEDS: ASPIRIN 81 MG CHEW TABLET PO SCH (08:46)
[2020-11-22] MEDS: LORATADINE 10 MG TAB PO SCH (08:46)
[2020-11-22] MEDS: ENOXAPARIN 40MG/0.4ML SYRINGE (J1650 PER 10MG) SC SCH (08:47)
--- NOTE | 2020-11-22 11:36 | IPNPDOC ---
Subjective Date Seen The patient was seen on 11/22/20. Subjective Chief Complaint/HPI No diarrhea overnight. BUt had 3 back to back bowel movements after she had cream of wheat for breakfast. Still with some right and left lower quadrant pain, No fever or chills. Objective Physical Examination General Exam: Positive: Alert, Cooperative, No Acute Distress Eye Exam: Positive: PERRLA, Conjunctiva & lids normal, EOMI; Negative: Sclera icteric ENT Exam: Positive: Atraumatic, Mucous membr. moist/pink, Pharynx Normal Neck Exam: Positive: Supple; Negative: JVD, thyromegaly Chest Exam: Positive: Clear to auscultation, Diminished (breath sounds overall) Heart Exam: Positive: Rate Normal, Regular Rhythm, Normal S1, Normal S2; Negative: Murmurs, Rubs Abdomen Exam: Positive: BS Hyperactive, Soft, Tenderness (left illiac fossa) Extremity Exam: Negative: Clubbing, Cyanosis, Edema Assessment /Plan Assessment 65-year-old female with COPD, chronic hypoxic respiratory failure, lung cancer, being observed, refused chemotherapy and immunotherapy, Recurrent diverticulitis, presented to the ED with them 2 days history of abdominal pain and diarrhea. She denied any fever or chills and denied any nausea or vomiting. . She reports that she had a lyons salad at on Friday , then from Friday she started having abdominal pain in the left lower quadrant, constant, sharp, 6-8/ 10 in intensity and started having diarrhea also. She did not eat much yesterday thinking that it could take care of the pain and the diarrhea, however, it didn't resolve, so came to the emergency room. CT abdomen and pelvis: Multiple dilated contrast and gas-filled small bowel loops are seen in the abdomen with multiple gas and fluid-filled dilated small bowel loops in the pelvis. There is thickening of the arevalo of the sigmoid colon with fatty infiltration. The findings are suggestive of Sigmoid diverticulitis with reactive small bowel ileus or partial small bowel obstruction. She was admitted for Sigmoid di verticulitis and small bowel ileus. Sigmoid diverticulitis with small bowel ileus Full liquids by mouth. Cipro and Flagyl. COPD with chronic respiratory failure and hypoxia Not in any exacerbation Continue Symbicort and Spiriva in place of inhalers Oxygen supplementation Allergic rhinitis Continue Loratadine Lung cancer Not on any active treatment at this time Plan/VTE VTE Prophylaxis Ordered?: Yes VS, I&O, 24H, [facility] Vital Signs/I&O Vital Signs Date Time Temp Pulse Resp B/P (MAP) Pulse Ox O2 Delivery O2 Flow Rate FiO2 11/22/20 08:59 18 11/22/20 06:00 97.6 99 122/71 (88) 91 Nasal Cannula 3.0 I&O- Last 24 Hours up to 6 AM 11/22/20 07:00 Intake Total 840 ml Output Total 600 ml Balance 240 ml Laboratory Data 24H LABS Laboratory Tests 2 11/21/20 11:43: Immature Granulocyte % (Auto) 0.3, Neutrophils (%) (Auto) 79.1H, Lymphocytes (%) (Auto) 12.1L, Monocytes (%) (Auto) 7.5, Eosinophils (%) (Auto) 0.8, Basophils (%) (Auto) 0.2, Neutrophils # (Auto) 7.5, Lymphocytes # (Auto) 1.1L, Monocytes # (Auto) 0.7, Eosinophils # (Auto) 0.1, Basophils # (Auto) 0.0, Nucleated Red Blood Cells % (auto) 0.0, Anion Gap 11, Glomerular Filtration Rate > 60.0, Lactic Acid Level 1.2, Calcium Level 9.2, Total Bilirubin 0.3, Direct Bilirubin 0.1, Aspartate Amino Transf (AST/SGOT) 18, Alanine Aminotransferase (ALT/SGPT) 32, Alkaline Phosphatase 93, Total Creatine Kinase 91, Creatine Kinase MB < 1.0, Creatine Kinase MB Relative Index 1.10, Troponin I < 0.02, Total Protein 7.5, Albumin 3.7, Albumin/Globulin Ratio 1.0L, Lipase 74 11/21/20 13:12: Urine Color YELLOW, Urine Appearance CLEAR, Urine pH 5.0, Urine Specific [place] 1.011, Urine Protein NEGATIVE, Urine Glucose (UA) NEGATIVE, Urine Ketones 1+H, Urine Blood 1+H, Urine Nitrite NEGATIVE, Urine Bilirubin NEGATIVE, Urine Urobilinogen 0.2, Urine Leukocyte Esterase 1+H, Urine WBC (Auto) 4H, Urine RBC (Auto) 2, Urine Hyaline Casts (Auto) 0, Urine Bacteria (Auto) 1+H, Urine Squamous Epithelial Cells 0, Urine Mucus (Auto) SMALL, Urine Sperm (Auto) 11/21/20 15:38: Coronavirus (COVID-19)(PCR) NEGATIVE, Influenza Type A (RT-PCR) NEGATIVE, Influenza Type B (RT-PCR) NEGATIVE, Respiratory Syncytial Virus (PCR) NEGATIVE 11/22/20 05:15: Immature Granulocyte % (Auto) 0.3, Neutrophils (%) (Auto) 70.5H, Lymphocytes (%) (Auto) 16.5L, Monocytes (%) (Auto) 10.3H, Eosinophils (%) (Auto) 2.3, Basophils (%) (Auto) 0.1, Neutrophils # (Auto) 5.1, Lymphocytes # (Auto) 1.2L, Monocytes # (Auto) 0.8, Eosinophils # (Auto) 0.2, Basophils # (Auto) 0.0, Nucleated Red Blood Cells % (auto) 0.0, Anion Gap 8, Glomerular Filtration Rate > 60.0, Calcium Level 9.3 CBC/BMP Laboratory Tests 11/21/20 11:43 11/22/20 05:15 Microbiology Microbiology 11/21/20 Urine Culture - Final, Complete JOANIE MARTINES MD Nov 22, 2020 11:36
[2020-11-22 14:00] VITALS: BP 119/78
[2020-11-22 22:00] VITALS: BP 133/74
[2020-11-23] MEDS: metroNIDAZOLE 500 MG in IV 1 EA IV SCH ×2 (01:03→09:25)
[2020-11-23] MEDS: CIPROFLOXACIN 400 MG in IV 1 EA IV SCH (05:01)
--- NOTE | 2020-11-23 05:48 | ECGEPIP ---
[facility] - ED Test Date: 2020-11-21 Pat Name: DYLLAN GILLETTE Department: Room: - Gender: Female [employer] Worker: LUZ : 1955 Requested By: WILL Nagel Order Number: [id number] Reading MD: Calvin Brown Measurements Intervals [place] Rate: 97 P: 77 PA: 158 QRS: 75 QRSD: 78 T: 72 QT: 366 QTc: 464 Interpretive Statements Normal sinus rhythm INCOMPLETE RIGHT BUNDLE BRANCH BLOCK SIMILAR TO 12/23/19 Electronically Signed on 11-23-2020 5:48:26 EDT by Calvin Brown
[2020-11-23 06:00] VITALS: BP 114/67
[2020-11-23 06:12] LABS: BASO % 0.2 % (0.0-1.0); EOS # 0.2 10^3/uL (0.0-0.5); EOS % 3.4 % (0.0-3.0); HEMATOCRIT 33.4 % (36.0-47.0); HEMOGLOBIN 10.8 g/dl (12.0-15.5); LYMPH % 17.9 % (24.0-44.0); MEAN CORPUSCULAR HEMOGLOBIN 30.6 pg (27.0-33.0); MEAN CORPUSCULAR HGB CONC 32.3 g/dl (32.0-36.5); MEAN CORPUSCULAR VOLUME 94.6 fl (80.0-96.0); MONO # 0.7 10^3/uL (0.0-0.8); MONO % 11.5 % (2.0-8.0); NEUTROPHILS # 3.9 10^3/uL (1.5-8.5); NEUTROPHILS % 66.5 % (36.0-66.0); PLATELET COUNT, AUTOMATED 304 10^3/uL (150-450); RED BLOOD COUNT 3.53 10^6/uL (4.00-5.40); WHITE BLOOD COUNT 5.8 10^3/uL (4.0-10.0)
[2020-11-23 06:39] LABS: BLOOD UREA NITROGEN 6 MG/DL (7-18); CALCIUM LEVEL 8.5 MG/DL (8.8-10.2); CARBON DIOXIDE LEVEL 29 MEQ/L (21-32); CHLORIDE LEVEL 104 MEQ/L (98-107); CREATININE FOR GFR 0.62 MG/DL (0.55-1.30); GLOMERULAR FILTRATION RATE > 60.0 (>45); GLUCOSE, FASTING 117 MG/DL (70-100); POTASSIUM SERUM 3.7 MEQ/L (3.5-5.1); SODIUM LEVEL 139 MEQ/L (136-145)
[2020-11-23] MEDS: TIOTROPIUM INHALER/CAPSULE (SPIRIVA) INH SCH (07:40)
[2020-11-23] MEDS: SYMBICORT 160/4.5MCG INHALER 6GM INH SCH (07:43)
[2020-11-23] MEDS: ENOXAPARIN 40MG/0.4ML SYRINGE (J1650 PER 10MG) SC SCH (09:00)
[2020-11-23] MEDS: ASPIRIN 81 MG CHEW TABLET PO SCH (09:25)
[2020-11-23] MEDS: LORATADINE 10 MG TAB PO SCH (09:25)
[2020-11-23] MEDS ORDERED: CIPR-249 PO (11:36)
[2020-11-23] MEDS ORDERED: FLAG500T PO (11:36)
--- NOTE | 2020-11-23 11:41 | IPNPDOC ---
Subjective Date Seen The patient was seen on 11/23/20. Subjective Chief Complaint/HPI Feeling well though still having some intermittent abdominal cramps. No diarrhea this morning. Wants to go home. Objective Physical Examination General Exam: Positive: Alert, Cooperative, No Acute Distress Eye Exam: Positive: PERRLA, Conjunctiva & lids normal, EOMI; Negative: Sclera icteric ENT Exam: Positive: Atraumatic, Mucous membr. moist/pink, Pharynx Normal Neck Exam: Positive: Supple; Negative: JVD, thyromegaly Chest Exam: Positive: Clear to auscultation, Diminished (breath sounds overall) Heart Exam: Positive: Rate Normal, Regular Rhythm, Normal S1, Normal S2; Negative: Murmurs, Rubs Abdomen Exam: Positive: BS Hyperactive, Soft, Tenderness (left illiac fossa) Extremity Exam: Negative: Clubbing, Cyanosis, Edema Assessment /Plan Assessment 65-year-old female with COPD, chronic hypoxic respiratory failure, lung cancer, being observed, refused chemotherapy and immunotherapy, Recurrent di verticulitis, presented to the ED with them 2 days history of abdominal pain and diarrhea. She denied any fever or chills and denied any nausea or vomiting. . She reports that she had a lyons salad at on Friday , then from Friday she started having abdominal pain in the left lower quadrant, constant, sharp, 6-8/ 10 in intensity and started having diarrhea also. She did not eat much yesterday thinking that it could take care of the pain and the diarrhea, however, it didn't resolve, so came to the emergency room. CT abdomen and pelvis: Multiple dilated contrast and gas-filled small bowel loops are seen in the abdomen with multiple gas and fluid-filled dilated small bowel loops in the pelvis. There is thickening of the arevalo of the sigmoid colon with fatty infiltration. The findings are suggestive of Sigmoid diverticulitis with reactive small bowel ileus or partial small bowel obstruction. She was admitted for Sigmoid diverticulitis and small bowel ileus. Sigmoid diverticulitis with small bowel ileus ileus resolved , having bowel movements. continue Cipro and Flagyl. COPD with chronic respiratory failure and hypoxia Not in any exacerbation continue home inhalers. Oxygen supplementation Allergic rhinitis Continue Loratadine Lung cancer Not on any active treatment at this time Dispo: Home. Follow up with PMD in 1 week Plan/VTE VTE Prophylaxis Ordered?: Yes VS, I&O, 24H, [facility] Vital Signs/I&O Vital Signs Date Time Temp Pulse Resp B/P (MAP) Pulse Ox O2 Delivery O2 Flow Rate FiO2 11/23/20 06:00 98.0 93 20 114/67 (83) 94 Nasal Cannula 3.0 I&O- Last 24 Hours up to 6 AM 11/23/20 06:00 Intake Total 2400 ml Output Total 2550 ml Balance -150 ml Laboratory Data 24H LABS Laboratory Tests 2 11/23/20 05:38: Immature Granulocyte % (Auto) 0.5, Neutrophils (%) (Auto) 66.5H, Lymphocytes (%) (Auto) 17.9L, Monocytes (%) (Auto) 11.5H, Eosinophils (%) (Auto) 3.4H, Basophils (%) (Auto) 0.2, Neutrophils # (Auto) 3.9, Lymphocytes # (Auto) 1.0L, Monocytes # (Auto) 0.7, Eosinophils # (Auto) 0.2, Basophils # (Auto) 0.0, Nucleated Red Blood Cells % (auto) 0.0, Anion Gap 6L, Glomerular Filtration Rate > 60.0, Calcium Level 8.5L CBC/BMP Laboratory Tests 11/23/20 05:38 Microbiology Microbiology 11/21/20 Urine Culture - Final, Complete JOANIE MARTINES MD Nov 23, 2020 11:41
[2020-11-23] MEDS ORDERED: metroNIDAZOLE (FLAGYL) 500MG TABLET PO SCH (17:00)
[2020-11-23] MEDS ORDERED: CIPROFLOXACIN 500MG TABLET PO SCH (18:00)
== END 2020-11-23 13:08 | disposition home or self-care (01) ==
LOC: M ED 11:27 → M ED INP 11:28 → ENRESERV 20:59 → M MSPAV 22:23
PROVIDERS: ADMIT Internal Medicine Nephrology; ATTEND Internal Medicine Nephrology
DX: K57.32 Diverticulitis of large intestine without perforation or abscess without bleeding (principal); K56.7 Ileus, unspecified; J44.9 Chronic obstructive pulmonary disease, unspecified; J96.11 Chronic respiratory failure with hypoxia; J30.9 Allergic rhinitis, unspecified; C34.90 Malignant neoplasm of unspecified part of unspecified bronchus or lung; I10 Essential (primary) hypertension; R10.9 Unspecified abdominal pain; Z87.891 Personal history of nicotine dependence; Z80.1 Family history of malignant neoplasm of trachea, bronchus and lung; Z79.899 Other long term (current) drug therapy; Z79.82 Long term (current) use of aspirin; Z79.51 Long term (current) use of inhaled steroids; Z88.0 Allergy status to penicillin; Z88.1 Allergy status to other antibiotic agents; Z88.2 Allergy status to sulfonamides; Z88.8 Allergy status to other drugs, medicaments and biological substances
CPT/HCPCS: 36415; 71045; 74177; 80048; 80076; 81001; 82550; 82553; 83605; 83690; 84484; 85025; 87086; 87631; 93005; 93041; 94640; 96365; 96366; 96367; 96372; 96375; 96376; 99285; G0378; J0744; J1650; J2270; Q9963; Q9967

== ENCOUNTER → 2021-03-08 | Outpatient (CLI) | payer MEDICARE, OTHER ==
[~2021-03-08] MED LIST changes: +CIPR-249 PO; +FLAG500T PO; +FOLI800C PO; -KLOR10TA76 PO; +LORA-622 PO; +POTA-136 PO
--- NOTE | 2021-03-08 11:29 | REP ---
INDICATION: LUNG CANCER COMPARISON: 11/21/2020 TECHNIQUE: PA and lateral. FINDINGS: The mediastinum and cardiac silhouette are normal. The lung kirby demonstrate advanced COPD/emphysematous changes with scattered scarring. No obvious acute consolidation, effusion, or pneumothorax. The skeletal structures are intact and normal. IMPRESSION: No acute cardiopulmonary process. Advanced COPD/emphysematous changes. <Electronically signed by Cheng Islas > 03/08/21 [id number]
== END ==
LOC: M CLY 11:05
PROVIDERS: ATTEND Internal Medicine Medical Oncology
DX: J44.9 Chronic obstructive pulmonary disease, unspecified (principal)

== ENCOUNTER → 2021-03-08 | Outpatient (REF) | payer MEDICARE, OTHER ==
[2021-03-08 16:27] LABS: BASO % 0.3 % (0.0-1.0); EOS # 0.2 10^3/uL (0.0-0.5); EOS % 2.4 % (0.0-3.0); HEMATOCRIT 41.2 % (36.0-47.0); HEMOGLOBIN 13.2 g/dl (12.0-15.5); LYMPH # 1.7 10^3/uL (1.5-5.0); LYMPH % 24.4 % (24.0-44.0); MEAN CORPUSCULAR HEMOGLOBIN 30.7 pg (27.0-33.0); MEAN CORPUSCULAR VOLUME 95.8 fl (80.0-96.0); MONO # 0.7 10^3/uL (0.0-0.8); MONO % 10.4 % (2.0-8.0); NEUTROPHILS # 4.4 10^3/uL (1.5-8.5); NEUTROPHILS % 62.2 % (36.0-66.0); PLATELET COUNT, AUTOMATED 351 10^3/uL (150-450)
[2021-03-08 17:55] LABS: ALBUMIN 3.9 GM/DL (3.2-5.2); ALT/SGPT 26 U/L (12-78); BILIRUBIN,TOTAL 0.3 MG/DL (0.2-1.0); BLOOD UREA NITROGEN 12 MG/DL (7-18); CALCIUM LEVEL 9.2 MG/DL (8.8-10.2); CARBON DIOXIDE LEVEL 31 MEQ/L (21-32); CHLORIDE LEVEL 105 MEQ/L (98-107); CREATININE FOR GFR 0.82 MG/DL (0.55-1.30); GLOMERULAR FILTRATION RATE > 60.0 (>45); GLUCOSE, FASTING 90 MG/DL (70-100); POTASSIUM SERUM 4.2 MEQ/L (3.5-5.1); SODIUM LEVEL 142 MEQ/L (136-145); TOTAL PROTEIN 7.2 GM/DL (6.4-8.2)
== END ==
LOC: M LAB REF 15:50
PROVIDERS: ATTEND Internal Medicine Medical Oncology
DX: C34.90 Malignant neoplasm of unspecified part of unspecified bronchus or lung (principal)

== ENCOUNTER → 2021-07-10 | Outpatient (CLI) | payer MEDICARE ==
[~2021-07-10] MED LIST changes: +DOXY-443 PO; -DOXY1CAP62 PO; +ONDA-84 PO; -ONDA8TAB10 PO; -PROC10TA4 PO; +PROC10TA5 PO
== END ==
LOC: M CLY 11:17
PROVIDERS: ATTEND Internal Medicine Medical Oncology
DX: C34.90 Malignant neoplasm of unspecified part of unspecified bronchus or lung (principal)

== ENCOUNTER → 2021-07-10 | Outpatient (REF) | payer MEDICARE ==
[2021-07-10 16:15] LABS: BASO % 0.4 % (0.0-1.0); EOS # 0.1 10^3/uL (0.0-0.5); EOS % 2.1 % (0.0-3.0); HEMATOCRIT 40.5 % (36.0-47.0); HEMOGLOBIN 13.1 g/dl (12.0-15.5); LYMPH # 1.5 10^3/uL (1.5-5.0); LYMPH % 21.5 % (24.0-44.0); MEAN CORPUSCULAR HEMOGLOBIN 30.2 pg (27.0-33.0); MEAN CORPUSCULAR HGB CONC 32.3 g/dl (32.0-36.5); MEAN CORPUSCULAR VOLUME 93.3 fl (80.0-96.0); MONO # 0.6 10^3/uL (0.0-0.8); MONO % 8.9 % (2.0-8.0); NEUTROPHILS # 4.5 10^3/uL (1.5-8.5); PLATELET COUNT, AUTOMATED 325 10^3/uL (150-450); RED BLOOD COUNT 4.34 10^6/uL (4.00-5.40); WHITE BLOOD COUNT 6.7 10^3/uL (4.0-10.0)
[2021-07-10 16:34] LABS: ALBUMIN 4.1 GM/DL (3.2-5.2); ALT/SGPT 25 U/L (12-78); BILIRUBIN,TOTAL 0.3 MG/DL (0.2-1.0); BLOOD UREA NITROGEN 12 MG/DL (7-18); CALCIUM LEVEL 9.2 MG/DL (8.8-10.2); CARBON DIOXIDE LEVEL 31 MEQ/L (21-32); CHLORIDE LEVEL 102 MEQ/L (98-107); CREATININE FOR GFR 0.75 MG/DL (0.55-1.30); GLOMERULAR FILTRATION RATE > 60.0 (>45); GLUCOSE, FASTING 89 MG/DL (70-100); POTASSIUM SERUM 4.6 MEQ/L (3.5-5.1); SODIUM LEVEL 138 MEQ/L (136-145); TOTAL PROTEIN 7.5 GM/DL (6.4-8.2)
== END ==
LOC: M LABDRAWC 15:23
PROVIDERS: ATTEND Nurse Practitioner Adult Health
DX: C34.90 Malignant neoplasm of unspecified part of unspecified bronchus or lung (principal)

== ENCOUNTER → 2021-07-18 | Outpatient (CLI) | payer MEDICARE ==
[~2021-07-18] MED LIST changes: +GASTROGRAFIN SOLUTION 30ML (Q9963) ONE; +ISOVUE-370 76% 100ML VIAL ONE; +MORP10SO2
== END ==
LOC: M PLAIMG 12:04
PROVIDERS: ATTEND Internal Medicine Medical Oncology
DX: C34.90 Malignant neoplasm of unspecified part of unspecified bronchus or lung (principal)
CPT/HCPCS: 71260; 74177; Q9963; Q9967

== ENCOUNTER → 2021-09-19 | Outpatient (CLI) | payer MEDICARE ==
[~2021-09-19] MED LIST changes: -GASTROGRAFIN SOLUTION 30ML (Q9963) ONE; -ISOVUE-370 76% 100ML VIAL ONE
== END ==
LOC: M CLY 11:51
PROVIDERS: ATTEND Nurse Practitioner Family
DX: M51.37 Other intervertebral disc degeneration, lumbosacral region (principal); M53.84 Other specified dorsopathies, thoracic region; M54.50 Low back pain, unspecified

== ENCOUNTER → 2021-10-01 | Outpatient (CLI) | payer MEDICARE | LOC: M WHC 13:07 | PROVIDERS: ATTEND Nurse Practitioner Family | DX: Z78.0 Asymptomatic menopausal state (principal); Z12.31 Encounter for screening mammogram for malignant neoplasm of breast ==

== ENCOUNTER → 2021-10-08 | Outpatient (REF) | payer MEDICARE ==
[2021-10-08 16:25] LABS: BASO % 0.4 % (0.0-1.0); EOS # 0.1 10^3/uL (0.0-0.5); EOS % 1.8 % (0.0-3.0); HEMATOCRIT 39.5 % (36.0-47.0); HEMOGLOBIN 12.9 g/dl (12.0-15.5); LYMPH # 1.2 10^3/uL (1.5-5.0); LYMPH % 21.4 % (24.0-44.0); MEAN CORPUSCULAR HEMOGLOBIN 31.1 pg (27.0-33.0); MEAN CORPUSCULAR HGB CONC 32.7 g/dl (32.0-36.5); MEAN CORPUSCULAR VOLUME 95.2 fl (80.0-96.0); MONO # 0.6 10^3/uL (0.0-0.8); MONO % 10.5 % (2.0-8.0); NEUTROPHILS # 3.6 10^3/uL (1.5-8.5); NEUTROPHILS % 65.7 % (36.0-66.0); PLATELET COUNT, AUTOMATED 366 10^3/uL (150-450); RED BLOOD COUNT 4.15 10^6/uL (4.00-5.40); WHITE BLOOD COUNT 5.4 10^3/uL (4.0-10.0)
[2021-10-08 16:49] LABS: ALBUMIN 3.9 GM/DL (3.2-5.2); ALT/SGPT 21 U/L (12-78); BILIRUBIN,TOTAL 0.3 MG/DL (0.2-1.0); BLOOD UREA NITROGEN 9 MG/DL (7-18); CALCIUM LEVEL 8.7 MG/DL (8.8-10.2); CARBON DIOXIDE LEVEL 32 MEQ/L (21-32); CHLORIDE LEVEL 101 MEQ/L (98-107); CREATININE FOR GFR 0.78 MG/DL (0.55-1.30); GLOMERULAR FILTRATION RATE > 60.0 (>45); GLUCOSE, FASTING 97 MG/DL (70-100); POTASSIUM SERUM 4.5 MEQ/L (3.5-5.1); SODIUM LEVEL 136 MEQ/L (136-145); TOTAL PROTEIN 7.1 GM/DL (6.4-8.2)
== END ==
LOC: M LABDRAWC 15:40
PROVIDERS: ATTEND Internal Medicine Medical Oncology
DX: C34.90 Malignant neoplasm of unspecified part of unspecified bronchus or lung (principal)

== ENCOUNTER → 2021-10-27 | Outpatient (CLI) | payer MEDICARE ==
[~2021-10-27] MED LIST changes: +MORP10SO2 PO
== END ==
LOC: M RAD 10:53
PROVIDERS: ATTEND Nurse Practitioner Family
DX: M43.9 Deforming dorsopathy, unspecified (principal)

== ENCOUNTER → 2021-11-20 | Outpatient (CLI) | payer MEDICARE | LOC: M PLARAD 07:32 | PROVIDERS: ATTEND Internal Medicine Medical Oncology | DX: C34.11 Malignant neoplasm of upper lobe, right bronchus or lung (principal) | CPT/HCPCS: 78815; A9552 ==

== ENCOUNTER → 2021-11-29 | Outpatient (CLI) | payer MEDICARE | LOC: M RAD 13:22 | PROVIDERS: ATTEND Internal Medicine Pulmonary Disease | DX: R91.8 Other nonspecific abnormal finding of lung field (principal) ==

== ENCOUNTER → 2022-01-11 | Outpatient (CLI) | payer MEDICARE ==
[~2022-01-11] MED LIST changes: +DEXA4TA PO; +FAMO20TA PO; +LEVO1TAB40 PO; -LEVO750T13 PO; +PROHANCE 279.3MG/ML 5ML VIAL As Ordered ONE
== END ==
LOC: M RAD 09:29
PROVIDERS: ATTEND Internal Medicine Medical Oncology
DX: C34.90 Malignant neoplasm of unspecified part of unspecified bronchus or lung (principal)
CPT/HCPCS: 70553; A9576

== ENCOUNTER 2022-01-12 05:55 | Inpatient (IN) | payer MEDICARE ==
[~2022-01-12] VITALS: Ht 160 cm; Wt 49.6 kg
[~2022-01-12 05:55] MED LIST changes: -PROHANCE 279.3MG/ML 5ML VIAL As Ordered ONE
[2022-01-12] MEDS ORDERED: NS 1,000 ML IV ONE (06:15)
[2022-01-12 06:43] LABS: BASO % 0.2 % (0.0-1.0); EOS # 0.2 10^3/uL (0.0-0.5); EOS % 1.8 % (0.0-3.0); HEMATOCRIT 43.5 % (36.0-47.0); HEMOGLOBIN 14.1 g/dl (12.0-15.5); LYMPH # 1.6 10^3/uL (1.5-5.0); MEAN CORPUSCULAR HEMOGLOBIN 31.1 pg (27.0-33.0); MEAN CORPUSCULAR HGB CONC 32.4 g/dl (32.0-36.5); MONO # 0.6 10^3/uL (0.0-0.8); MONO % 5.5 % (2.0-8.0); NEUTROPHILS # 8.5 10^3/uL (1.5-8.5); NEUTROPHILS % 77.3 % (36.0-66.0); PLATELET COUNT, AUTOMATED 435 10^3/uL (150-450); RED BLOOD COUNT 4.53 10^6/uL (4.00-5.40)
[2022-01-12 07:00] VITALS: BP 184/88
[2022-01-12 07:14] LABS: CK-MB VALUE MASS 1.6 NG/ML (<3.6); MB/CK RELATIVE INDEX 1.76 (< OR =4)
[2022-01-12 07:21] LABS: ALBUMIN 4.3 GM/DL (3.2-5.2); ALT/SGPT 25 U/L (12-78); BILIRUBIN,DIRECT 0.1 MG/DL (0.0-0.2); BILIRUBIN,TOTAL 0.2 MG/DL (0.2-1.0); BLOOD UREA NITROGEN 10 MG/DL (7-18); CALCIUM LEVEL 8.6 MG/DL (8.8-10.2); CARBON DIOXIDE LEVEL 25 MEQ/L (21-32); CHLORIDE LEVEL 105 MEQ/L (98-107); CREATININE FOR GFR 0.76 MG/DL (0.55-1.30); GLOMERULAR FILTRATION RATE > 60.0 (>45); GLUCOSE, FASTING 143 MG/DL (70-100); POTASSIUM SERUM 3.9 MEQ/L (3.5-5.1); SODIUM LEVEL 137 MEQ/L (136-145); THYROID STIMULATING HORMONE 0.762 uIU/ML (0.358-3.740)
[2022-01-12] MEDS ORDERED: MORPHINE 4 MG/ML 1ML VIAL/SYRINGE IV PRN (07:30)
[2022-01-12] MEDS ORDERED: LORazepam 2 MG/ML VIAL IV PRN (07:30)
[2022-01-12] MEDS ORDERED: SCOPOLAMINE 1MG TRANSDERMAL PATCH TOP PRN (07:30)
[2022-01-12] MEDS ORDERED: ONDANSETRON 4MG 2ML VIAL IV PRN (07:30)
[2022-01-12] MEDS ORDERED: LORazepam 1 MG TAB PO PRN (09:00)
[2022-01-12] MEDS ORDERED: diazePAM 10MG/2ML SYRINGE (J3360 PER 5MG) IV ONE (09:20)
[2022-01-12] MEDS ORDERED: diazePAM 10MG/2ML SYRINGE (J3360 PER 5MG) IV PRN (09:20)
[2022-01-12] MEDS ORDERED: MIDAZOLAM 5MG/ML 1ML VIAL (J2250 PER 1MG) As Ordered ONE (09:22)
[2022-01-12 10:20] LABS: RSV AMPLIFICATION NEGATIVE (NEGATIVE)
[2022-01-12] MEDS: MORPHINE 2 MG/ML 1ML VIAL IV PRN ×2 (16:54→21:04)
== END 2022-01-12 22:00 | disposition expired | DRG 951 ==
LOC: M ED 05:55 → M ED INP 07:28 → ENRESERV 09:17 → M MS5PR 11:10
PROVIDERS: ADMIT General Practice; ATTEND General Practice
DX: Z51.5 Encounter for palliative care (principal); I61.9 Nontraumatic intracerebral hemorrhage, unspecified; G93.6 Cerebral edema; J96.11 Chronic respiratory failure with hypoxia; G91.9 Hydrocephalus, unspecified; G93.40 Encephalopathy, unspecified; C79.31 Secondary malignant neoplasm of brain; C34.90 Malignant neoplasm of unspecified part of unspecified bronchus or lung; J43.9 Emphysema, unspecified; Z66 Do not resuscitate; I10 Essential (primary) hypertension; J30.9 Allergic rhinitis, unspecified; Z90.49 Acquired absence of other specified parts of digestive tract; Z80.1 Family history of malignant neoplasm of trachea, bronchus and lung; Z87.891 Personal history of nicotine dependence; Z79.82 Long term (current) use of aspirin; Z79.899 Other long term (current) drug therapy; Z88.0 Allergy status to penicillin; Z88.2 Allergy status to sulfonamides; Z88.8 Allergy status to other drugs, medicaments and biological substances